=== PATIENT | female | born 1980 | race Caucasian/White ===

== ENCOUNTER 2016-06-16 10:24 | Emergency (ER) | payer OTHER ==
[2016-06-16] MEDS ORDERED: LIDOCAINE TOPICAL 4% 50 ML BOTTLE MM STA (12:18)
[2016-06-16] MEDS ORDERED: LIDOCAINE TOPICAL 4% 50 ML BOTTLE MM ONE (12:25)
== END 2016-06-16 12:51 | disposition home or self-care (01) ==
DX: H69.82 Other specified disorders of Eustachian tube, left ear (principal); E11.9 Type 2 diabetes mellitus without complications

== ENCOUNTER 2016-08-01 15:28 | Outpatient (CLI) | payer OTHER | END 2016-08-01 15:29 | disposition home or self-care (01) | DX: Z00.00 Encounter for general adult medical examination without abnormal findings (principal) ==

== ENCOUNTER 2016-08-06 09:12 | Emergency (ER) | payer OTHER ==
[2016-08-06] MEDS ORDERED: cefTRIAXone 1 GM VIAL IM STA (10:06)
[2016-08-06] MEDS ORDERED: KETOROLAC 60 MG/2 ML VIAL IM STA (10:06)
[2016-08-06] MEDS ORDERED: DEXAMETHASONE 10 MG/ML VIAL PO STA (10:06)
[2016-08-06] MEDS ORDERED: CHERRY SYRUP 10 ML UDC PO ONE (10:12)
[2016-08-06] MEDS ORDERED: cefTRIAXone 1 GM VIAL ONE (10:12)
[2016-08-06] MEDS ORDERED: DEXAMETHASONE 10 MG/ML VIAL ONE (10:12)
[2016-08-06] MEDS ORDERED: KETOROLAC 60 MG/2 ML VIAL ONE (10:12)
[2016-08-06] MEDS ORDERED: LIDOCAINE 1% 2 ML VIAL ONE (10:12)
== END 2016-08-06 12:17 | disposition home or self-care (01) ==
DX: K08.89 Other specified disorders of teeth and supporting structures (principal); H66.002 Acute suppurative otitis media without spontaneous rupture of ear drum, left ear; J34.89 Other specified disorders of nose and nasal sinuses; E11.9 Type 2 diabetes mellitus without complications
CPT/HCPCS: 70486; 96372; 99283; A9270

== ENCOUNTER 2016-08-09 11:16 | Outpatient (CLI) | payer OTHER | END 2016-08-09 11:17 | disposition home or self-care (01) | DX: R10.32 Left lower quadrant pain (principal); D72.829 Elevated white blood cell count, unspecified; K62.5 Hemorrhage of anus and rectum ==

== ENCOUNTER 2016-08-10 13:04 | Outpatient (CLI) | payer OTHER | END 2016-08-10 13:05 | disposition home or self-care (01) | DX: R10.2 Pelvic and perineal pain (principal) ==

== ENCOUNTER 2016-08-12 16:43 | Outpatient (CLI) | payer OTHER ==
[2016-08-12] MEDS ORDERED: IOPAMIDOL-300 100 ML VIAL IVP ONE (18:30)
[2016-08-12] MEDS ORDERED: IOPAMIDOL-300 50 ML VIAL PO ONE (18:30)
== END 2016-08-12 16:44 | disposition home or self-care (01) ==
DX: K76.0 Fatty (change of) liver, not elsewhere classified (principal); R91.8 Other nonspecific abnormal finding of lung field; N83.11 Corpus luteum cyst of right ovary
CPT/HCPCS: 74177; Q9967

== ENCOUNTER 2016-11-05 12:45 | Outpatient (CLI) | payer OTHER ==
[2016-11-05 19:23] LABS: BASOPHILS % (AUTO) 0.4 %; EOSINOPHILS # (AUTO) 0.1 10^3/uL (0.0-0.7); EOSINOPHILS % (AUTO) 0.5 %; HCT - HEMATOCRIT 41.5 % (37.0-47.0); HGB - HEMOGLOBIN 13.8 g/dL (12.0-16.0); LYMPHOCYTES # (AUTO) 3.5 10^3/uL (1.5-3.5); LYMPHOCYTES % (AUTO) 30.9 %; MEAN CORPUSCULAR HEMOGLOBIN 30.1 pg (27.0-31.0); MEAN CORPUSCULAR HGB CONC 33.3 g/dL (32.0-36.0); MEAN CORPUSCULAR VOLUME 90.3 fL (81.0-99.0); MEAN PLATELET VOLUME 7.7 fL (7.9-10.8); MONOCYTES # (AUTO) 0.4 10^3/uL (0.0-1.0); MONOCYTES % (AUTO) 3.8 %; NEUTROPHILS # (AUTO) 7.4 10^3/uL (1.5-6.6); NEUTROPHILS % (AUTO) 64.4 %; NUCLEATED RED BLOOD CELLS AUTO 0.1 /100WBC; RED BLOOD COUNT 4.59 10^6/uL (4.20-5.40); RED CELL DISTRIBUTION WIDTH 13.1 % (12.0-15.0); UNCORRECTED WHITE BLOOD COUNT 11.5 x10^3/uL; WHITE BLOOD COUNT 11.5 x10^3/uL (4.8-10.8)
[2016-11-05 19:28] LABS: ALBUMIN/GLOBULIN RATIO 1.3 (1.0-2.2); BILIRUBIN,TOTAL 0.9 mg/dL (0.2-1.0); BUN - BLOOD UREA NITROGEN 12 mg/dL (6-20); CALCIUM 9.6 mg/dL (8.5-10.3); CARBON DIOXIDE - CO2 25 mmol/L (21-32); CHLORIDE 101 mmol/L (101-111); CHOL/HDL RATIO 3.6 (<4.4); CHOLESTEROL 153 mg/dL; CREATININE 0.5 mg/dL (0.4-1.0); GFR - MDRD 140 (>89); GLUCOSE 159 mg/dL (70-100); HDL CHOLESTEROL 42 mg/dL; LDL/HDL RATIO 0.9 (<4.4); POTASSIUM 3.7 mmol/L (3.5-5.0); SODIUM 137 mmol/L (135-145); TOTAL PROTEIN 7.6 g/dL (6.7-8.2); TRIGLYCERIDES 367 mg/dL; VLDL CHOLESTEROL 73 mg/dL
[2016-11-05 20:13] LABS: HEMOGLOBIN A1C 1.07 g/dL
== END 2016-11-05 23:59 | disposition home or self-care (01) ==
LOC: LAB.WCP 12:45
PROVIDERS: ATTEND Physician Assistant Medical
DX: E78.5 Hyperlipidemia, unspecified (principal); N39.0 Urinary tract infection, site not specified; E11.9 Type 2 diabetes mellitus without complications; D72.829 Elevated white blood cell count, unspecified; Z79.899 Other long term (current) drug therapy
CPT/HCPCS: 36415; 80053; 80061; 82043; 83036; 85025; 87086

== ENCOUNTER 2016-12-28 16:59 | Emergency (ER) | payer OTHER ==
[2016-12-28 17:22] VITALS: BP 129/89
[2016-12-28] MEDS ORDERED: CLINDAMYCIN 150 MG CAPSULE PO STA (17:28)
[2016-12-28] MEDS ORDERED: HYDROcod/ACETAM 5/325 MG TABLET PO STA (17:28)
--- NOTE | 2016-12-28 17:31 | ED Physician Documentation ---
PD HPI HEENT - Stated complaint Stated Complaint: MOUTH PX - Chief complaint Chief Complaint: Heent - History obtained from History obtained from: Patient - History of Present Illness Timing - onset: How many days ago (2 day of increasing pain left upper mouth/ gum. Had crown placed 5 days ago and felt okay for the 2 days following.) Timing - duration: Days Timing - details: Gradual onset, Still present (worsening) Location: Tooth, Mouth Associated symptoms: No: Fever, Congestion, Swollen nodes, Cough Similar symptoms before: Has not had sx before Recently seen: Clinic (dental work 5 days ago with 2 crowns placed.) Review of Systems Constitutional: denies: Fever, Chills Nose: denies: Rhinorrhea / runny nose, Congestion Throat: reports: Dental pain / toothache. denies: Sore throat Skin: denies: Rash, Lesions PD PAST MEDICAL HISTORY - Past Medical History Neuro: Headache/migraine Endocrine/Autoimmune: Type 2 diabetes GI: GERD - Past Surgical History Past Surgical History: Yes Ortho: Knee replacement, Shoulder arthroplasty HEENT: Tonsil/Adenoidectomy - Present Medications Home Medications: Ambulatory Orders Medication Instructions Recorded Confirmed Fluticasone [Flonase] 1 sprays SOTO BID PRN #1 bottle 06/16/16 08/06/16 Azithromycin [Zithromax] 250 mg PO DAILY #6 tablet 08/06/16 HYDROcod/ACETAM 5/325 [Shubuta 5/325] 1 - 2 ea PO Q6H PRN #15 tablet 08/06/16 Atorvastatin [Lipitor] 10 mg PO DAILY 12/28/16 12/28/16 Clindamycin [Cleocin] 150 mg PO QID #20 capsule 12/28/16 Fluconazole [Diflucan] 150 mg PO ONCE #2 tablet 12/28/16 Naproxen 375 mg PO BID #20 tablet 12/28/16 Oxycodone HCl/Acetaminophen 1 each PO Q6H PRN #15 tablet 12/28/16 [Percocet 5-325 mg Tablet] metFORMIN [Glucophage] 500 mg PO DAILY 12/28/16 12/28/16 - Allergies Allergies/Adverse Reactions: Allergies Allergy/AdvReac Type Severity Reaction Status Date / Time doxycycline Allergy Unknown Verified 12/28/16 17:33 hydrocodone Allergy Headache Verified 12/28/16 17:32 - Social History Does the pt smoke?: No Smoking Status: Never smoker Does the pt drink ETOH?: No Does the pt have substance abuse?: No - Immunizations Immunizations are current?: Yes - POLST Patient has POLST: No PD ED PE NORMAL - Vitals Vital signs reviewed: Yes - General General: Alert and oriented X 3, No acute distress, Well developed/nourished - HEENT HEENT: Ears normal. No: Pharynx benign (tonsils okay. right upper teeth with crowns noted. No tenderness to percussion of them. The gum has some redness and tenderness. No fluctuance. ) - Neck Neck: Supple, no meningeal sign, Other (right anterior adenopathy) - Cardiac Cardiac: RRR, No murmur - Respiratory Respiratory: Clear bilaterally - Derm Derm: Normal color, Warm and dry, No rash Results - Vitals Vitals: Oxygen O2 Source Room air PD MEDICAL DECISION MAKING - ED course Complexity details: considered differential (the crowns appear okay and no percussion tenderness. The gums are red with some swelling. She also complains of some recent yeast itching and is concerned about yeast vaginitis with abx use. will treat for that with oral diflucan. ), d/w patient Departure - Departure Disposition: 01 Home, Self Care Clinical Impression: Yeast vaginitis, Gingivitis Record reviewed to determine appropriate education?: Yes Follow-Up: Radha Tariq PA-C [Primary Care Provider] - Prescriptions: Clindamycin [Cleocin] 150 mg PO QID #20 capsule Fluconazole [Diflucan] 150 mg PO ONCE #2 tablet Naproxen 375 mg PO BID #20 tablet Oxycodone HCl/Acetaminophen [Percocet 5-325 mg Tablet] 1 each PO Q6H PRN #15 tablet PRN Reason: Pain Comments: Antiseptic mouth rinse 2-3 times daily. Presume infection would be the most likely cause for the pain, with some swelling of the gum: take Clindamycin as directed antibiotic. Use some naproxen twice daily for inflammation. Add percocet as needed for pain. For the yeast vaginitis, take Diflucan once today and repeat in a week. Discharge Date/Time: 12/28/16 18:04
[2016-12-28] MEDS ORDERED: HYDROcod/ACETAM 5/325 MG TABLET ONE (17:34)
[2016-12-28] MEDS ORDERED: CLINDAMYCIN 150 MG CAPSULE PO ONE (17:34)
[2016-12-28] MEDS ORDERED: oxyCOD/ACETAMIN 5 MG/325 MG TABLET PO STA (17:40)
[2016-12-28] MEDS ORDERED: oxyCOD/ACETAMIN 5 MG/325 MG TABLET PO ONE (18:04)
== END 2016-12-28 18:04 | disposition home or self-care (01) ==
LOC: ED 16:59
DX: K05.10 Chronic gingivitis, plaque induced (principal); B37.3 Candidiasis of vulva and vagina
CPT/HCPCS: 99283; A9270

== ENCOUNTER 2017-01-14 21:38 | Inpatient (IN) | payer OTHER ==
--- NOTE | 2017-01-14 21:53 | ED Physician Documentation ---
PD HPI NVD - Stated complaint Stated Complaint: FEVER,VOMITING,BACK PX - Chief complaint Chief Complaint: Abd Pain - History obtained from History obtained from: Patient - History of Present Illness Timing - onset: Yesterday Timing - details: Gradual onset, Constant, Waxing and waning Pain level now: 8 Associated symptoms: Fever (Tmax 102.2), Abdominal pain Improved by: Other (no ameliorating factors) Worsened by: Other (no exacerbating factors) Similar symptoms before: Has not had sx before Recently seen: Emergency Dept (T+R from this ED earlier this month for dental infection) - Additonal information Additional information: c/o 1-2 days of nausea, vomiting, diarrhea, fever to Tmax 102.2, generalized myalgias and arthralgias Review of Systems Constitutional: reports: Fever, Chills, Myalgias, Sweats Eyes: reports: Reviewed and negative Ears: reports: Reviewed and negative Nose: reports: Reviewed and negative Throat: reports: Reviewed and negative Cardiac: reports: Reviewed and negative Respiratory: reports: Reviewed and negative GI: reports: Abdominal Pain, Nausea, Vomiting, Diarrhea : denies: Dysuria, Frequency Skin: reports: Reviewed and negative Musculoskeletal: reports: Back pain (left mid/low back pain), Joint pain ( generalized/diffuse) Neurologic: reports: Reviewed and negative PD PAST MEDICAL HISTORY - Past Medical History Past Medical History: Yes Neuro: Headache/migraine Endocrine/Autoimmune: Type 2 diabetes GI: GERD - Past Surgical History Past Surgical History: Yes Ortho: Knee replacement, Shoulder arthroplasty HEENT: Tonsil/Adenoidectomy - Present Medications Home Medications: Ambulatory Orders Medication Instructions Recorded Confirmed metFORMIN [Glucophage] 500 mg PO DAILY 12/28/16 01/14/17 Atorvastatin Calcium 20 mg PO DAILY 01/14/17 01/14/17 - Allergies Allergies/Adverse Reactions: Allergies Allergy/AdvReac Type Severity Reaction Status Date / Time doxycycline Allergy Unknown Verified 01/14/17 21:42 hydrocodone Allergy Headache Verified 01/14/17 21:42 - Social History Does the pt smoke?: No Smoking Status: Never smoker Does the pt drink ETOH?: No Does the pt have substance abuse?: No - Immunizations Immunizations are current?: Yes - POLST Patient has POLST: No PD ED PE NORMAL - Vitals Vital signs reviewed: Yes - General General: Alert and oriented X 3, Well developed/nourished, Other (appears to be uncomfortable, painful distress) - HEENT HEENT: Moist mucous membranes - Neck Neck: Supple, no meningeal sign - Cardiac Cardiac: No murmur - Respiratory Respiratory: No respiratory distress, Clear bilaterally - Abdomen Abdomen: Soft, Non distended - Derm Derm: Normal color, Warm and dry, No rash PD ED PE EXPANDED - Cardiac Cardiac: Tachy, Regular Rhythm - Abdomen Abdomen: Tender to palpation, LLQ. No: Rebound, Guarding - Back Back: CVA TTP left Results - Vitals Vitals: Vital Signs - 24 hr 01/14/17 01/14/17 01/14/17 21:44 22:58 23:16 Temperature 37.1 C 37.2 C Heart Rate 124 H 104 H 104 H Respiratory 18 18 18 Rate Blood Pressure 129/85 H 101/56 L 112/66 O2 Saturation 98 97 97 01/15/17 01/15/17 01/15/17 00:05 00:40 00:56 Temperature 37.1 C Heart Rate 101 H 94 96 Respiratory 19 18 16 Rate Blood Pressure 100/62 105/62 110/67 O2 Saturation 95 95 96 Oxygen O2 Source Room air - Labs Labs: Laboratory Tests 01/14/17 01/14/17 01/14/17 21:50 21:53 21:53 WBC 25.3 H RBC 4.76 Hgb 13.9 Hct 42.1 MCV 88.5 MCH 29.2 MCHC 33.0 RDW 13.8 Plt Count 343 MPV 7.5 L Neut # Not Reportable Lymph # Not Reportable Grand # Not Reportable Eos # Not Reportable Baso # Not Reportable Absolute Nucleated RBC Not Reportable Total Counted 100 Band Neuts % (Manual) 5 Neutrophils # (Manual) 21.0 H Lymphocytes # (Manual) 3.0 Monocytes # (Manual) 1.3 H Nucleated RBCs Not Reportable Differential Comment MANUAL DIFFERENTIAL Platelet Estimate NORMAL (130-450,000) Platelet Morphology NORMAL APPEARANCE RBC Morph Micro Appear NORMAL APPEARANCE Sodium 135 Potassium 3.8 Chloride 98 L Carbon Dioxide 24 Anion Gap 13.0 BUN 7 Creatinine 0.6 Estimated GFR (MDRD) 113 Glucose 367 H Calcium 9.4 Total Bilirubin 1.3 H AST 26 ALT 27 Alkaline Phosphatase 122 H Total Protein 7.7 Albumin 4.1 Globulin 3.6 Albumin/Globulin Ratio 1.1 Lipase 20 L Urine Color YELLOW Urine Clarity HAZY Urine pH 6.0 Ur Specific [place] 1.010 Urine Protein TRACE Urine Glucose (UA) 500 H Urine Ketones >=80 H Urine Occult Blood SMALL H Urine Nitrite NEGATIVE Urine Bilirubin NEGATIVE Urine Urobilinogen 0.2 (NORMAL) Ur Leukocyte Esterase NEGATIVE Urine RBC 6-10 H Urine WBC 4-5 Ur Squamous Epith Cells MANY Squamous H Urine Bacteria Few Ur Microscopic Review INDICATED Urine Culture Comments NOT INDICATED Urine HCG, Qual NEGATIVE Serum Ketones 01/14/17 01/15/17 21:53 00:30 WBC RBC Hgb Hct MCV MCH MCHC RDW Plt Count MPV Neut # Lymph # Grand # Eos # Baso # Absolute Nucleated RBC Total Counted Band Neuts % (Manual) Neutrophils # (Manual) Lymphocytes # (Manual) Monocytes # (Manual) Nucleated RBCs Differential Comment Platelet Estimate Platelet Morphology RBC Morph Micro Appear Sodium Potassium Chloride Carbon Dioxide Anion Gap BUN Creatinine Estimated GFR (MDRD) Glucose Calcium Total Bilirubin AST ALT Alkaline Phosphatase Total Protein Albumin Globulin Albumin/Globulin Ratio Lipase Urine Color YELLOW Urine Clarity CLEAR Urine pH 5.5 Ur Specific [place] <=1.005 Urine Protein NEGATIVE Urine Glucose (UA) NEGATIVE Urine Ketones >=80 H Urine Occult Blood SMALL H Urine Nitrite NEGATIVE Urine Bilirubin NEGATIVE Urine Urobilinogen 0.2 (NORMAL) Ur Leukocyte Esterase NEGATIVE Urine RBC 0-5 Urine WBC 0-3 Ur Squamous Epith Cells RARE Squamous Urine Bacteria None Seen Ur Microscopic Review INDICATED Urine Culture Comments NOT INDICATED Urine HCG, Qual Serum Ketones NEGATIVE - Rads (name of study) CT A/P Radiology: Prelim report reviewed, See rad report PD MEDICAL DECISION MAKING - ED course Complexity details: reviewed results, re-evaluated patient, considered differential, d/w patient Departure - Departure Disposition: 66 [facility] DC/Xfer Clinical Impression: Pyelonephritis Condition: Stable
[2017-01-14] MEDS ORDERED: ONDANSETRON 4 MG/2 ML VIAL ONE (22:15)
[2017-01-14] MEDS ORDERED: KETOROLAC 30 MG/ML VIAL ONE (22:15)
[2017-01-14 22:20] LABS: BASOPHILS % (AUTO) 0.3 %; HCT - HEMATOCRIT 42.1 % (37.0-47.0); HGB - HEMOGLOBIN 13.9 g/dL (12.0-16.0); LYMPHOCYTES % (AUTO) 5.2 %; MEAN CORPUSCULAR HEMOGLOBIN 29.2 pg (27.0-31.0); MEAN CORPUSCULAR VOLUME 88.5 fL (81.0-99.0); MEAN PLATELET VOLUME 7.5 fL (7.9-10.8); MONOCYTES % (AUTO) 5.6 %; NEUTROPHILS % (AUTO) 88.9 %; RED BLOOD COUNT 4.76 10^6/uL (4.20-5.40); RED CELL DISTRIBUTION WIDTH 13.8 % (12.0-15.0); UNCORRECTED WHITE BLOOD COUNT 25.3 x10^3/uL; WHITE BLOOD COUNT 25.3 x10^3/uL (4.8-10.8)
[2017-01-14] MEDS ORDERED: KETOROLAC 60 MG/2 ML VIAL IVP STA (22:21)
[2017-01-14] MEDS ORDERED: ONDANSETRON 4 MG/2 ML VIAL IVP STA (22:21)
[2017-01-14] MEDS ORDERED: SODIUM CHLORIDE 0.9% 1,000 ML IV ONE (22:23)
[2017-01-14 22:29] LABS: BILIRUBIN,URINE NEGATIVE (NEGATIVE)
[2017-01-14 22:31] LABS: HCG UR QUAL NEGATIVE; UA w/ MICROSCOPIC CHARGE YES
[2017-01-14 22:33] LABS: ALBUMIN/GLOBULIN RATIO 1.1 (1.0-2.2); BILIRUBIN,TOTAL 1.3 mg/dL (0.2-1.0); CALCIUM 9.4 mg/dL (8.5-10.3); CREATININE 0.6 mg/dL (0.4-1.0); POTASSIUM 3.8 mmol/L (3.5-5.0); TOTAL PROTEIN 7.7 g/dL (6.7-8.2)
[2017-01-14 22:40] LABS: UR CULTURE IF IND NOT INDICATED
[2017-01-14 22:49] LABS: BAND NEUTROPHILS % (MANUAL) 5 %; LYMPHOCYTES % (MANUAL) 12 %; NEUTROPHILS % (MANUAL) 78 %; TOTAL CELLS COUNTED 100
[2017-01-14 22:52] LABS: NP AUTO DIFFERENTIAL? YES; NP MAN DIFFERENTIAL? NO; PLATELET ESTIMATE, MANUAL NORMAL (130-450,000) (NORMAL); PLATELET MORPHOLOGY NORMAL APPEARANCE (NORMAL)
[2017-01-14] MEDS ORDERED: HYDROmorphone 1 MG/ML SYRINGE IVP STA (23:03)
[2017-01-14] MEDS ORDERED: HYDROmorphone 1 MG/ML SYRINGE ONE (23:07)
[2017-01-14] MEDS ORDERED: IOPAMIDOL-300 100 ML VIAL IVP ONE (23:33)
--- NOTE | 2017-01-14 23:52 | CT Preliminary Report ---
Exam: CT Abdomen/Pelvis W/ IMPRESSION: 1. Left mid kidney pyelonephritis. 2. There are areas of mild urothelial thickening about the renal pelves bilaterally, left greater lenka n right with associated mild abnormal enhancement. These are worrisome for concurrent urinary tract i nfection. Correlation with urinalysis needed. 3. At least one gallstone within a partially distended gallbladder. No evidence of cholecystitis. No biliary dilation. 4. No bowel obstruction. Appendix is normal. Ovaries are physiologic in appearance. [facility] SITE ID: [id number]
[2017-01-15] MEDS ORDERED: SODIUM CHLORIDE 0.9% 1,000 ML IV STA (00:03)
[2017-01-15] MEDS ORDERED: ONDANSETRON 4 MG/2 ML VIAL IVP STA (00:03)
--- NOTE | 2017-01-15 00:07 | CT Report ---
EXAM: CT ABDOMEN AND PELVIS EXAM DATE: 01/14/2017 11:36 PM. CLINICAL HISTORY: Left lower quadrant pain and fever. COMPARISONS: 08/12/2016. TECHNIQUE: Routine helical CT imaging was performed through the abdomen and pelvis. IV contrast: 100 mL Isovue-300. Enteric contrast: No. Reconstructions: Coronal and sagittal. In accordance with CT protocol optimization, one or more of the following dose reduction techniques w ere utilized for this exam: automated exposure control, adjustment of mA and/or KV based on patient s ize, or use of iterative reconstructive technique. FINDINGS: ABDOMEN: Liver: Moderate hepatic steatosis and hepatomegaly. Stomach/Distal Esophagus: No significant abnormality. Gallbladder: Suspect at least one gallstone. Bile Ducts: No significant abnormality. Pancreas: No significant abnormality. Spleen: No significant abnormality. Kidneys: There is a segmental area of diminished enhancement within the left kidney, with slight appa rent enlargement in the affected area. There is an incipient left upper kidney stone suspected. There is no hydronephrosis. Mild left-sided urothelial thickening about the left renal pelvis with mild ab normal enhancement. Equivocal right-sided urothelial thickening. No right-sided hydronephrosis. Adrenals: No significant abnormality. Bowel: No obstruction. Average fecal residual. Appendix: Normal. Lymph Nodes: No pathologically enlarged nodes. Vasculature: Normal caliber aorta. Fluid: No significant free fluid. Abdominal Wall: No significant abnormality. Other: No significant abnormality. PELVIS: Uterus and Ovaries: No significant abnormality. Bladder: No significant abnormality. Lymph Nodes: No pathologically enlarged nodes. Fluid: No significant free fluid. Other: None. BONES: No suspicious bony lesions. LOWER CHEST: No significant consolidation or effusion. IMPRESSION: 1. Left mid kidney pyelonephritis. 2. There are areas of mild urothelial thickening about the renal pelves bilaterally, left greater lenka n right with associated mild abnormal enhancement. These are worrisome for concurrent urinary tract i nfection. Correlation with urinalysis needed. 3. At least one gallstone within a partially distended gallbladder. No evidence of cholecystitis. No biliary dilation. 4. No bowel obstruction. Appendix is normal. Ovaries are physiologic in appearance. [facility] Referring Provider Line: [phone] SITE ID: [id number]
[2017-01-15] MEDS ORDERED: ONDANSETRON 4 MG/2 ML VIAL ONE (00:08)
[2017-01-15] MEDS ORDERED: HYDROmorphone 1 MG/ML SYRINGE IVP STA (00:39)
[2017-01-15] MEDS ORDERED: PIPERACILLIN/TAZOBACTAM 3.375 GM in SODIUM CHLORIDE 0.9% MINIBAG 100 ML IV STA (00:41)
[2017-01-15] MEDS ORDERED: HYDROmorphone 1 MG/ML SYRINGE ONE ×2 (00:44→03:51)
[2017-01-15 00:45] LABS: BILIRUBIN,URINE NEGATIVE (NEGATIVE); PH,URINE 5.5 PH (5.0-7.5)
[2017-01-15 01:11] LABS: UA w/ MICROSCOPIC CHARGE YES; UR CULTURE IF IND NOT INDICATED; WBC,URINE 0-3 /HPF (0-5)
[2017-01-15] MEDS ORDERED: ZOLPIDEM 5 MG TABLET PO PRN (01:50)
[2017-01-15] MEDS ORDERED: PROCHLORPERAZINE 10 MG/2 ML VIAL IVP PRN (01:50)
[2017-01-15 02:24] LABS: CALCIUM 8.4 mg/dL (8.5-10.3); CREATININE 0.6 mg/dL (0.4-1.0); POTASSIUM 3.8 mmol/L (3.5-5.0)
[2017-01-15 02:32] LABS: HEMOGLOBIN A1C 1.19 g/dL
[2017-01-15] MEDS ORDERED: PROCHLORPERAZINE 10 MG/2 ML VIAL ONE (02:44)
[2017-01-15] MEDS: SODIUM CHLORIDE 0.9% 1,000 ML IV SCH ×3 (04:58→20:56)
[2017-01-15] MEDS: PIPERACILLIN/TAZOBACTAM 3.375 GM in SODIUM CHLORIDE 0.9% MINIBAG 100 ML IV SCH ×3 (05:56→20:42)
[2017-01-15] MEDS ORDERED: INSULIN REGULAR HUMAN 100 UNIT/1 ML 10 ML MDV SUBQ SCH (06:00)
[2017-01-15 06:37] LABS: BASOPHILS # (AUTO) 0.1 10^3/uL (0.0-0.1); BASOPHILS % (AUTO) 0.4 %; HCT - HEMATOCRIT 37.8 % (37.0-47.0); HGB - HEMOGLOBIN 12.5 g/dL (12.0-16.0); LYMPHOCYTES # (AUTO) 1.7 10^3/uL (1.5-3.5); LYMPHOCYTES % (AUTO) 8.6 %; MEAN CORPUSCULAR HEMOGLOBIN 29.4 pg (27.0-31.0); MEAN CORPUSCULAR HGB CONC 33.1 g/dL (32.0-36.0); MEAN CORPUSCULAR VOLUME 88.8 fL (81.0-99.0); MEAN PLATELET VOLUME 7.4 fL (7.9-10.8); MONOCYTES # (AUTO) 0.9 10^3/uL (0.0-1.0); MONOCYTES % (AUTO) 4.6 %; NEUTROPHILS # (AUTO) 17.6 10^3/uL (1.5-6.6); NEUTROPHILS % (AUTO) 86.4 %; RED BLOOD COUNT 4.26 10^6/uL (4.20-5.40); UNCORRECTED WHITE BLOOD COUNT 20.3 x10^3/uL; WHITE BLOOD COUNT 20.3 x10^3/uL (4.8-10.8)
[2017-01-15 06:43] LABS: CALCIUM 8.2 mg/dL (8.5-10.3); CREATININE 0.6 mg/dL (0.4-1.0)
[2017-01-15] MEDS: SODIUM CHLORIDE FLUSH 0.9% 10 ML SYRINGE IVP SCH ×3 (06:53→20:50)
[2017-01-15 06:57] LABS: PLATELET ESTIMATE, MANUAL NORMAL (130-450,000) (NORMAL); PLATELET MORPHOLOGY NORMAL APPEARANCE (NORMAL)
--- NOTE | 2017-01-15 07:23 | HISTORY & PHYSICAL EXAMINATION ---
DATE OF ADMISSION: 01/15/2017 HISTORY OF PRESENT ILLNESS: This is a 36-year-old white female with a history of migraines and type 2 diabetes. The patient presents with a 2-3 day history of malaise, fever to 102, nausea, vomiting, di arrhea, and overall arthralgias. The patient had a fever documented in the emergency room to 38 and w as also complaining of abdominal pain and posterior abdominal pain, located in the flank. The patient required escalating doses of pain medications in the emergency room and had worsening of her nausea and vomiting subsequently. The patient underwent imaging studies in the emergency room, revealing alpesh dence of pyelonephritis for which she is admitted. REVIEW OF SYSTEMS: As above. Also, she denies dysuria, urgency or frequency. PAST MEDICAL HISTORY: Includes diabetes, for which she is on an oral agent and cholesterol management . PAST SURGICAL HISTORY: Knee replacement, shoulder arthroplasty, and tonsils and adenoids. FAMILY HISTORY: Negative for heart disease, positive for diabetes. SOCIAL HISTORY: She is a nonsmoker who never smoked and uses no alcohol and no illicit drug use. PHYSICAL EXAMINATION GENERAL: Reveals an obese white female. She is mildly in distress from nausea and vomiting. VITAL SIGNS: Blood pressure 112/66, pulse is 104 in sinus rhythm, and she has a low grade temperature now of 37.7. HEENT: Unremarkable. She has moist mucosa. NECK: Shows no JVD in a vertical position. No carotid bruits. No thyromegaly. CHEST: She has diminished breath sounds diffusely, but there are no rales, rhonchi, or wheezes. ABDOMEN: Obese with decreased bowel sounds, soft, nontender. No guarding or rebound. There is positiv e right flank tenderness. EXTREMITIES: Show no clubbing, cyanosis or edema. Calves have no tenderness. Dorsalis pedis pulses ar e normal. NEUROLOGIC: Intact. LABORATORY: Sodium 135, potassium 3.8, BUN 7, creatinine 0.6, bilirubin 1.3, AST 26, ALT 27, glucose 367. Lipase normal at 20. Urinalysis showed many squamous cells and another urinalysis has been sent off. White blood count 25.3 and the differential is pending, hemoglobin 13.9, platelet count normal. There is no INR. Toxicology screen was negative for serum ketones. IMAGING: CT of the abdomen and pelvis was done, which showed left mid kidney pyelonephritis, areas of mild urothelial thickening about the renal pelvis bilaterally, left greater than right, with abnorma l enhancement. She has 1 gallstone and a partially distended gallbladder. There is no bowel obstructi on. IMPRESSION 1. Pyelonephritis. 2. Abdominal pain with nausea and possible cholelithiasis. 3. Diabetes with elevated glucose. 4. Obesity. PLAN: Admit the patient and start IV hydration, IV antibiotics. Blood culture, urine culture. Treat t he patient for her nausea. Continue with her p.o. antihyperglycemic agent and also add a sliding scal e insulin to cover high glucoses and institute routine glucose checks. JOB #: [id number] EXT JOB #:[id number]
[2017-01-15] MEDS: HYDROcod/ACETAM 10 MG/325 MG TABLET PO PRN ×3 (08:42→20:41)
[2017-01-15] MEDS: FAMOTIDINE 20 MG TABLET PO SCH (08:50)
[2017-01-15] MEDS: ATORVASTATIN 10 MG TABLET PO SCH (08:50)
[2017-01-15] MEDS: ENOXAPARIN 40 MG/0.4 ML SYRINGE SUBQ SCH (08:50)
[2017-01-15] MEDS: POLYETHYLENE GLYCOL 3350 17 GM PACKET PO SCH (08:51)
[2017-01-15] MEDS ORDERED: PIPERACILLIN/TAZOBACTAM 3.375 GM in SODIUM CHLORIDE 0.9% MINIBAG 100 ML IV SCH (09:00)
[2017-01-15] MEDS ORDERED: metFORMIN 500 MG TABLET PO SCH (09:00)
[2017-01-15] MEDS ORDERED: MONTELUKAST 10 MG TABLET PO PRN (11:00)
[2017-01-15 11:42] LABS: HEMOGLOBIN A1C 1.19 g/dL
[2017-01-15] MEDS: oxyCODONE 5 MG TABLET PO PRN ×3 (12:25→20:42)
[2017-01-15] MEDS: INSULIN ASPART 300 UNIT/3 ML PEN SUBQ SCH ×3 (12:30→20:49)
[2017-01-15] MEDS ORDERED: PROCHLORPERAZINE 10 MG/2 ML VIAL IV ONE ×2 (14:10→16:00)
[2017-01-15] MEDS ORDERED: LORazepam 2 MG/ML VIAL IVP PRN (14:12)
[2017-01-15] MEDS ORDERED: LORazepam 2 MG/ML SYRINGE IVP PRN (15:17)
[2017-01-15] MEDS ORDERED: SODIUM CHLORIDE 0.9% IV ONE (16:00)
[2017-01-15] MEDS ORDERED: PROCHLORPERAZINE IV ONE (16:00)
[2017-01-15] MEDS: ACETAMINOPHEN 325 MG TABLET PO PRN (16:26)
--- NOTE | 2017-01-15 18:07 | PROVIDER PROGRESS NOTE ---
Assessment/Plan - Problem List (1) Pyelonephritis Assessment/Plan: She has had fever this afternoon, She is on antibiotics. Her pain is improved. (2) Migraine Assessment/Plan: She had UMANZOR then better after a nap then worse again. She has recurrent, chronic migraines. She got Compazine this afternoon. Effect undetermined at this point. - Current Meds Current Meds: Current Medications Generic Name Dose Route Start Last Admin Trade Name Freq PRN Reason Stop Dose Admin Acetaminophen 650 mg 01/15/17 01:50 01/15/17 16:26 Tylenol PO 650 mg Q4HR PRN Administration Pain 1 to 4 Acetaminophen/Hydrocodone Bitart 1 tab 01/15/17 01:50 01/15/17 16:25 Sprakers 10 Mg/325 Mg PO 1 tab Q4HR PRN Administration Pain 8 to 10 Atorvastatin Calcium 20 mg 01/15/17 09:00 01/15/17 08:50 Lipitor PO 20 mg DAILY LENO Administration Enoxaparin Sodium 40 mg 01/15/17 09:00 01/15/17 08:50 Lovenox SUBQ 40 mg DAILY LENO Administration Famotidine 20 mg 01/15/17 09:00 01/15/17 08:50 Pepcid PO 20 mg DAILY LENO Administration Sodium Chloride 1,000 mls @ 125 mls/hr 01/15/17 02:00 01/15/17 08:51 Normal Saline 0.9% IV 125 mls/hr .Q8H LENO Administration Piperacillin Sod/Tazobactam 100 mls @ 200 mls/hr 01/15/17 05:00 01/15/17 12:27 Sod 3.375 gm/ Sodium Chloride IV 200 mls/hr Q8H LENO Administration Insulin Aspart 3 - 11 unit 01/15/17 12:00 01/15/17 17:16 Novolog SUBQ 7 unit 0800,1200,1700,2100 LENO Administration Protocol Oxycodone HCl 5 mg 01/15/17 01:50 01/15/17 16:21 Roxicodone PO 5 mg Q4HR PRN Administration Pain 5 to 7 Polyethylene Glycol 17 gm 01/15/17 09:00 01/15/17 08:51 Miralax PO Not Given DAILY LENO Sodium Chloride 10 ml 01/15/17 06:00 01/15/17 14:05 Normal Saline Flush 0.9% IVP Not Given Q8HR LENO - Lab Result Fish Bone Diagrams: 01/15/17 06:29 01/15/17 06:29 - Additional Planning My Orders: My Active Orders 01/15/17 10:59 Blood Glucose Checks - Eating [RC] 0800,1200,1700,2100 Initiate Hypoglycemia Protocol [RC] .protocol 01/15/17 11:00 Montelukast [Singulair] 10 mg PO QPM PRN 01/15/17 12:00 Insulin Aspart [NovoLOG] 3 - 11 unit SUBQ 0800,1200,1700,2100 01/16/17 05:00 CBC - COMP BLD CT W/AUTO DIFF [HEME] DAILYLAB COMPREHENSIVE METABOLIC PANEL [CHEM] DAILYLAB 01/17/17 05:00 CBC - COMP BLD CT W/AUTO DIFF [HEME] DAILYLAB COMPREHENSIVE METABOLIC PANEL [CHEM] DAILYLAB 01/18/17 05:00 CBC - COMP BLD CT W/AUTO DIFF [HEME] DAILYLAB COMPREHENSIVE METABOLIC PANEL [CHEM] DAILYLAB Subjective - Subjective Patient Reports: Back Pain, Nausea Nursing Reports: Headache, Nausea, Pain Objective Vital Signs: Vital Signs - 24 hr 01/15/17 01/15/17 01/15/17 02:10 08:47 14:20 Temperature 37.1 C 38.5 C H 37.9 C H Heart Rate 90 Heart Rate [ 100 99 Brachial] Heart Rate [ Radial] Respiratory 16 18 18 Rate Blood Pressure 116/59 L Blood Pressure 114/64 135/80 H [Left Brachial artery] Blood Pressure [Left Radial artery] O2 Saturation 96 97 95 01/15/17 01/15/17 15:55 17:43 Temperature 38.5 C H 38.3 C H Heart Rate Heart Rate [ Brachial] Heart Rate [ 97 Radial] Respiratory 20 Rate Blood Pressure Blood Pressure [Left Brachial artery] Blood Pressure 144/86 H [Left Radial artery] O2 Saturation 97 Oxygen O2 Source Room air I&O (Last 24 Hrs): Intake and Output Totals x24h 01/13/17 01/14/17 01/15/17 23:59 23:59 23:59 Intake Total 2095 Output Total 700 Balance 1395 General: Alert, Oriented x3, Cooperative HEENT: PERRLA, EOMI Neck: No JVD, No thyromegaly Neuro: Alert, Oriented Times 3 Cardiovascular: Regular rate, No murmurs Respiratory: Chest non-tender, No respiratory distress, Breath sounds nml Abdomen: Normal bowel sounds - Results Results: Laboratory Results WBC 20.3 x10^3/uL (4.8-10.8) H 01/15/17 06:29 RBC 4.26 10^6/uL (4.20-5.40) 01/15/17 06:29 Hgb 12.5 g/dL (12.0-16.0) 01/15/17 06:29 Hct 37.8 % (37.0-47.0) 01/15/17 06:29 MCV 88.8 fL (81.0-99.0) 01/15/17 06:29 MCH 29.4 pg (27.0-31.0) 01/15/17 06: MCHC 33.1 g/dL (32.0-36.0) 01/15/17 06:29 RDW 14.0 % (12.0-15.0) 01/15/17 06:29 Plt Count 292 10^3/uL (130-450) 01/15/17 06:29 MPV 7.4 fL (7.9-10.8) L 01/15/17 06:29 Neut # 17.6 10^3/uL (1.5-6.6) H 01/15/17 06:29 Lymph # 1.7 10^3/uL (1.5-3.5) 01/15/17 06:29 [place] # 0.9 10^3/uL (0.0-1.0) 01/15/17 06:29 Eos # 0.0 10^3/uL (0.0-0.7) 01/15/17 06:29 Baso # 0.1 10^3/uL (0.0-0.1) 01/15/17 06:29 Absolute Nucleated RBC 0.00 x10^3/uL 01/15/17 06:29 Total Counted 100 01/14/17 21:53 Band Neuts % (Manual) 5 % (0-10) 01/14/17 21:53 Neutrophils # (Manual) 21.0 10^3/uL (1.5-6.6) H 01/14/17 21:53 Lymphocytes # (Manual) 3.0 10^3/uL (1.5-3.5) 01/14/17 21:53 Monocytes # (Manual) 1.3 10^3/uL (0.0-1.0) H 01/14/17 21:53 Nucleated RBCs 0.0 /100WBC 01/15/17 06:29 Differential Comment MANUAL DIFFERENTIAL 01/14/17 21:53 Manual Slide Review Indicated 01/15/17 06:29 Platelet Estimate NORMAL (130-450,000) (NORMAL) 01/15/17 06:29 Platelet Morphology NORMAL APPEARANCE (NORMAL) 01/15/17 06:29 RBC Morph Micro Appear NORMAL APPEARANCE (NORMAL) 01/15/17 06:29 Sodium 135 mmol/L (135-145) 01/15/17 06:29 Potassium 4.0 mmol/L (3.5-5.0) 01/15/17 06:29 Chloride 103 mmol/L (101-111) 01/15/17 06:29 Carbon Dioxide 24 mmol/L (21-32) 01/15/17 06:29 Anion Gap 8.0 (6-13) 01/15/17 06:29 BUN 8 mg/dL (6-20) 01/15/17 06:29 Creatinine 0.6 mg/dL (0.4-1.0) 01/15/17 06:29 Estimated GFR (MDRD) 113 (>89) 01/15/17 06:29 Glucose 298 mg/dL (70-100) H 01/15/17 06:29 POC Whole Bld Glucose 250 mg/dL (70 - 100) H 01/15/17 11:31 Fasting Glucose 347 mg/dL (70-100) H 01/15/17 02:11 Glycated Hemoglobin 10.3 % (4.6-6.2) H 01/15/17 06:29 Estim Average Glucose 249 (70-100) H 01/15/17 06:29 Calcium 8.2 mg/dL (8.5-10.3) L 01/15/17 06:29 Total Bilirubin 1.3 mg/dL (0.2-1.0) H 01/14/17 21:53 AST 26 IU/L (10-42) 01/14/17 21:53 ALT 27 IU/L (10-60) 01/14/17 21:53 Alkaline Phosphatase 122 IU/L (42-121) H 01/14/17 21:53 Total Protein 7.7 g/dL (6.7-8.2) 01/14/17 21:53 Albumin 4.1 g/dL (3.2-5.5) 01/14/17 21:53 Globulin 3.6 g/dL (2.1-4.2) 01/14/17 21:53 Albumin/Globulin Ratio 1.1 (1.0-2.2) 01/14/17 21:53 Lipase 20 U/L (22-51) L 01/14/17 21:53 Urine Color YELLOW 01/15/17 00:30 Urine Clarity CLEAR (CLEAR) 01/15/17 00:30 Urine pH 5.5 PH (5.0-7.5) 01/15/17 00:30 Ur Specific [place] <=1.005 (1.002-1.030) 01/15/17 00:30 Urine Protein NEGATIVE mg/dL (NEGATIVE) 01/15/17 00:30 Urine Glucose (UA) NEGATIVE mg/dL (NEGATIVE) 01/15/17 00:30 Urine Ketones >=80 mg/dL (NEGATIVE) H 01/15/17 00:30 Urine Occult Blood SMALL (NEGATIVE) H 01/15/17 00:30 Urine Nitrite NEGATIVE (NEGATIVE) 01/15/17 00:30 Urine Bilirubin NEGATIVE (NEGATIVE) 01/15/17 00:30 Urine Urobilinogen 0.2 (NORMAL) E.U./dL (NORMAL) 01/15/17 00:30 Ur Leukocyte Esterase NEGATIVE (NEGATIVE) 01/15/17 00:30 Urine RBC 0-5 /HPF (0-5) 01/15/17 00:30 Urine WBC 0-3 /HPF (0-5) 01/15/17 00:30 Ur Squamous Epith Cells RARE Squamous (<= Few) 01/15/17 00:30 Urine Bacteria None Seen /HPF (None Seen) 01/15/17 00:30 Ur Microscopic Review INDICATED 01/15/17 00:30 Urine Culture Comments NOT INDICATED 01/15/17 00:30 Urine HCG, Qual NEGATIVE 01/14/17 21:50 Serum Ketones NEGATIVE (NEGATIVE) 01/14/17 21:53
[2017-01-16] MEDS: oxyCODONE 5 MG TABLET PO PRN ×4 (00:20→20:52)
[2017-01-16] MEDS: ACETAMINOPHEN 325 MG TABLET PO PRN ×2 (00:26→20:52)
[2017-01-16] MEDS: IBUPROFEN 600 MG TABLET PO PRN ×3 (02:38→21:44)
[2017-01-16] MEDS: PIPERACILLIN/TAZOBACTAM 3.375 GM in SODIUM CHLORIDE 0.9% MINIBAG 100 ML IV SCH ×2 (04:30→15:01)
[2017-01-16] MEDS: SODIUM CHLORIDE FLUSH 0.9% 10 ML SYRINGE IVP SCH ×3 (04:32→23:15)
[2017-01-16] MEDS: SODIUM CHLORIDE 0.9% 1,000 ML IV SCH ×3 (04:39→18:05)
[2017-01-16] MEDS: ONDANSETRON ODT 4 MG TABLET TL PRN ×2 (05:09→20:52)
[2017-01-16 06:22] LABS: BASOPHILS % (AUTO) 0.1 %; HCT - HEMATOCRIT 32.7 % (37.0-47.0); HGB - HEMOGLOBIN 11.1 g/dL (12.0-16.0); LYMPHOCYTES # (AUTO) 1.1 10^3/uL (1.5-3.5); LYMPHOCYTES % (AUTO) 7.6 %; MEAN CORPUSCULAR HEMOGLOBIN 29.9 pg (27.0-31.0); MEAN CORPUSCULAR HGB CONC 33.9 g/dL (32.0-36.0); MEAN CORPUSCULAR VOLUME 88.1 fL (81.0-99.0); MEAN PLATELET VOLUME 7.3 fL (7.9-10.8); MONOCYTES # (AUTO) 0.7 10^3/uL (0.0-1.0); MONOCYTES % (AUTO) 5.2 %; NEUTROPHILS # (AUTO) 12.4 10^3/uL (1.5-6.6); NEUTROPHILS % (AUTO) 87.1 %; NUCLEATED RED BLOOD CELLS AUTO 0.1 /100WBC; RED BLOOD COUNT 3.71 10^6/uL (4.20-5.40); RED CELL DISTRIBUTION WIDTH 14.2 % (12.0-15.0); UNCORRECTED WHITE BLOOD COUNT 14.2 x10^3/uL; WHITE BLOOD COUNT 14.2 x10^3/uL (4.8-10.8)
[2017-01-16 06:34] LABS: ALBUMIN/GLOBULIN RATIO 0.9 (1.0-2.2); BILIRUBIN,TOTAL 1.1 mg/dL (0.2-1.0); CALCIUM 8.2 mg/dL (8.5-10.3); CREATININE 0.5 mg/dL (0.4-1.0); POTASSIUM 3.3 mmol/L (3.5-5.0); TOTAL PROTEIN 5.9 g/dL (6.7-8.2)
--- NOTE | 2017-01-16 08:14 | PROVIDER PROGRESS NOTE ---
Assessment/Plan - Problem List (1) Pyelonephritis Assessment/Plan: Nguyen had fever until 0300 today. She had a vey uncomfortable night. He back p[ain and HAs have resolved. No prelim Culture results. (2) Migraine Assessment/Plan: Migraine gone. She cannot tolerate Hydrocodone . Once stopped UMANZOR gone. - Current Meds Current Meds: Current Medications Generic Name Dose Route Start Last Admin Trade Name Freq PRN Reason Stop Dose Admin Acetaminophen 650 mg 01/15/17 01:50 01/16/17 00:26 Tylenol PO 650 mg Q4HR PRN Administration Pain 1 to 4 Acetaminophen/Hydrocodone Bitart 1 tab 01/15/17 01:50 01/15/17 20:41 [place] 10 Mg/325 Mg PO 1 tab Q4HR PRN Administration Pain 8 to 10 Atorvastatin Calcium 20 mg 01/15/17 09:00 01/15/17 08:50 Lipitor PO 20 mg DAILY LENO Administration Enoxaparin Sodium 40 mg 01/15/17 09:00 01/15/17 08:50 Lovenox SUBQ 40 mg DAILY LENO Administration Famotidine 20 mg 01/15/17 09:00 01/15/17 08:50 Pepcid PO 20 mg DAILY LENO Administration Sodium Chloride 1,000 mls @ 125 mls/hr 01/15/17 02:00 01/16/17 04:39 Normal Saline 0.9% IV 125 mls/hr .Q8H LENO Administration Piperacillin Sod/Tazobactam 100 mls @ 200 mls/hr 01/15/17 05:00 01/16/17 04:30 Sod 3.375 gm/ Sodium Chloride IV 200 mls/hr Q8H LENO Administration Ibuprofen 600 mg 01/15/17 01:50 01/16/17 02:38 Motrin PO 600 mg Q6HR PRN Administration Pain 1 to 4 Insulin Aspart 3 - 11 unit 01/15/17 12:00 01/15/17 20:49 Novolog SUBQ 5 unit 0800,1200,1700,2100 LENO Administration Protocol Ondansetron HCl 4 mg 01/15/17 01:50 01/16/17 05:09 Zofran Odt TL 4 mg Q6HR PRN Administration Nausea / Vomiting Oxycodone HCl 5 mg 01/15/17 01:50 01/16/17 04:28 Roxicodone PO 5 mg Q4HR PRN Administration Pain 5 to 7 Polyethylene Glycol 17 gm 01/15/17 09:00 01/15/17 08:51 Miralax PO Not Given DAILY LENO Sodium Chloride 10 ml 01/15/17 06:00 01/16/17 04:32 Normal Saline Flush 0.9% IVP 10 ml Q8HR LENO Administration - Lab Result Fish Bone Diagrams: 01/16/17 06:05 01/16/17 06:05 - Additional Planning My Orders: My Active Orders 01/15/17 10:59 Blood Glucose Checks - Eating [RC] 0800,1200,1700,2100 Initiate Hypoglycemia Protocol [RC] .protocol 01/15/17 11:00 Montelukast [Singulair] 10 mg PO QPM PRN 01/15/17 12:00 Insulin Aspart [NovoLOG] 3 - 11 unit SUBQ 0800,1200,1700,2100 01/17/17 05:00 CBC - COMP BLD CT W/AUTO DIFF [HEME] DAILYLAB COMPREHENSIVE METABOLIC PANEL [CHEM] DAILYLAB 01/18/17 05:00 CBC - COMP BLD CT W/AUTO DIFF [HEME] DAILYLAB COMPREHENSIVE METABOLIC PANEL [CHEM] DAILYLAB Subjective - Subjective Patient Reports: Resting Comfortably, Fever Nursing Reports: Nausea Objective Vital Signs: Vital Signs - 24 hr 01/15/17 01/15/17 01/15/17 08:47 14:20 15:55 Temperature 38.5 C H 37.9 C H 38.5 C H Heart Rate [ 100 99 Brachial] Heart Rate [ 97 Radial] Respiratory 18 18 20 Rate Blood Pressure 114/64 135/80 H [Left Brachial artery] Blood Pressure 144/86 H [Left Radial artery] O2 Saturation 97 95 97 01/15/17 01/16/17 01/16/17 17:43 00:24 02:41 Temperature 38.3 C H 38.4 C H 38.9 C H Heart Rate [ 92 Brachial] Heart Rate [ Radial] Respiratory 16 Rate Blood Pressure [Left Brachial artery] Blood Pressure 130/76 [Left Radial artery] O2 Saturation 96 01/16/17 01/16/17 04:47 07:51 Temperature 36.7 C 36.7 C Heart Rate [ 85 Brachial] Heart Rate [ Radial] Respiratory 19 Rate Blood Pressure [Left Brachial artery] Blood Pressure 104/76 [Left Radial artery] O2 Saturation 95 Oxygen O2 Source Room air I&O (Last 24 Hrs): Intake and Output Totals x24h 01/14/17 01/15/17 01/16/17 23:59 23:59 23:59 Intake Total 2990 961 Output Total 1000 Balance 1989 961 General: Alert, Oriented x3, Cooperative Neck: No JVD, No thyromegaly Neuro: Alert, Non Focal, Oriented Times 3 Cardiovascular: Regular rate, Normal S1 Respiratory: Chest non-tender, No respiratory distress, Breath sounds nml Abdomen: Normal bowel sounds, Soft Extremities: No edema, Normal pulses - Results Results: Laboratory Results WBC 14.2 x10^3/uL (4.8-10.8) H 01/16/17 06:05 RBC 3.71 10^6/uL (4.20-5.40) L 01/16/17 06:05 Hgb 11.1 g/dL (12.0-16.0) L 01/16/17 06:05 Hct 32.7 % (37.0-47.0) L 01/16/17 06:05 MCV 88.1 fL (81.0-99.0) 01/16/17 06:05 MCH 29.9 pg (27.0-31.0) 01/16/17 06:05 MCHC 33.9 g/dL (32.0-36.0) 01/16/17 06:05 RDW 14.2 % (12.0-15.0) 01/16/17 06:05 Plt Count 212 10^3/uL (130-450) 01/16/17 06:05 MPV 7.3 fL (7.9-10.8) L 01/16/17 06:05 Neut # 12.4 10^3/uL (1.5-6.6) H 01/16/17 06:05 Lymph # 1.1 10^3/uL (1.5-3.5) L 01/16/17 06:05 [place] # 0.7 10^3/uL (0.0-1.0) 01/16/17 06:05 Eos # 0.0 10^3/uL (0.0-0.7) 01/16/17 06:05 Baso # 0.0 10^3/uL (0.0-0.1) 01/16/17 06:05 Absolute Nucleated RBC 0.01 x10^3/uL 01/16/17 06:05 Total Counted 100 01/14/17 21:53 Band Neuts % (Manual) 5 % (0-10) 01/14/17 21:53 Neutrophils # (Manual) 21.0 10^3/uL (1.5-6.6) H 01/14/17 21:53 Lymphocytes # (Manual) 3.0 10^3/uL (1.5-3.5) 01/14/17 21:53 Monocytes # (Manual) 1.3 10^3/uL (0.0-1.0) H 01/14/17 21:53 Nucleated RBCs 0.1 /100WBC 01/16/17 06:05 Differential Comment MANUAL DIFFERENTIAL 01/14/17 21:53 Manual Slide Review Indicated 01/15/17 06:29 Platelet Estimate NORMAL (130-450,000) (NORMAL) 01/15/17 06:29 Platelet Morphology NORMAL APPEARANCE (NORMAL) 01/15/17 06:29 RBC Morph Micro Appear NORMAL APPEARANCE (NORMAL) 01/15/17 06:29 Sodium 134 mmol/L (135-145) L 01/16/17 06:05 Potassium 3.3 mmol/L (3.5-5.0) L 01/16/17 06:05 Chloride 103 mmol/L (101-111) 01/16/17 06:05 Carbon Dioxide 21 mmol/L (21-32) 01/16/17 06:05 Anion Gap 10.0 (6-13) 01/16/17 06:05 BUN 6 mg/dL (6-20) 01/16/17 06:05 Creatinine 0.5 mg/dL (0.4-1.0) 01/16/17 06:05 Estimated GFR (MDRD) 140 (>89) 01/16/17 06:05 Glucose 259 mg/dL (70-100) H 01/16/17 06:05 POC Whole Bld Glucose 250 mg/dL (70 - 100) H 01/15/17 11:31 Fasting Glucose 347 mg/dL (70-100) H 01/15/17 02:11 Glycated Hemoglobin 10.3 % (4.6-6.2) H 01/15/17 06:29 Estim Average Glucose 249 (70-100) H 01/15/17 06:29 Calcium 8.2 mg/dL (8.5-10.3) L 01/16/17 06:05 Total Bilirubin 1.1 mg/dL (0.2-1.0) H 01/16/17 06:05 AST 13 IU/L (10-42) 01/16/17 06:05 ALT 17 IU/L (10-60) 01/16/17 06:05 Alkaline Phosphatase 84 IU/L (42-121) 01/16/17 06:05 Total Protein 5.9 g/dL (6.7-8.2) L 01/16/17 06:05 Albumin 2.8 g/dL (3.2-5.5) L 01/16/17 06:05 Globulin 3.1 g/dL (2.1-4.2) 01/16/17 06:05 Albumin/Globulin Ratio 0.9 (1.0-2.2) L 01/16/17 06:05 Lipase 20 U/L (22-51) L 01/14/17 21:53 Urine Color YELLOW 01/15/17 00:30 Urine Clarity CLEAR (CLEAR) 01/15/17 00:30 Urine pH 5.5 PH (5.0-7.5) 01/15/17 00:30 Ur Specific [place] <=1.005 (1.002-1.030) 01/15/17 00:30 Urine Protein NEGATIVE mg/dL (NEGATIVE) 01/15/17 00:30 Urine Glucose (UA) NEGATIVE mg/dL (NEGATIVE) 01/15/17 00:30 Urine Ketones >=80 mg/dL (NEGATIVE) H 01/15/17 00:30 Urine Occult Blood SMALL (NEGATIVE) H 01/15/17 00:30 Urine Nitrite NEGATIVE (NEGATIVE) 01/15/17 00:30 Urine Bilirubin NEGATIVE (NEGATIVE) 01/15/17 00:30 Urine Urobilinogen 0.2 (NORMAL) E.U./dL (NORMAL) 01/15/17 00:30 Ur Leukocyte Esterase NEGATIVE (NEGATIVE) 01/15/17 00:30 Urine RBC 0-5 /HPF (0-5) 01/15/17 00:30 Urine WBC 0-3 /HPF (0-5) 01/15/17 00:30 Ur Squamous Epith Cells RARE Squamous (<= Few) 01/15/17 00:30 Urine Bacteria None Seen /HPF (None Seen) 01/15/17 00:30 Ur Microscopic Review INDICATED 01/15/17 00:30 Urine Culture Comments NOT INDICATED 01/15/17 00:30 Urine HCG, Qual NEGATIVE 01/14/17 21:50 Serum Ketones NEGATIVE (NEGATIVE) 01/14/17 21:53
[2017-01-16] MEDS: ATORVASTATIN 10 MG TABLET PO SCH (08:36)
[2017-01-16] MEDS: FAMOTIDINE 20 MG TABLET PO SCH (08:36)
[2017-01-16] MEDS: ENOXAPARIN 40 MG/0.4 ML SYRINGE SUBQ SCH (08:37)
[2017-01-16] MEDS: POLYETHYLENE GLYCOL 3350 17 GM PACKET PO SCH (08:38)
[2017-01-16] MEDS: INSULIN ASPART 300 UNIT/3 ML PEN SUBQ SCH ×4 (08:40→21:48)
[2017-01-16] MEDS ORDERED: PROCHLORPERAZINE 10 MG/2 ML VIAL IVP STA (14:55)
[2017-01-16] MEDS: SODIUM CHLORIDE FLUSH 0.9% 10 ML SYRINGE IVP PRN (15:16)
[2017-01-16] MEDS ORDERED: SODIUM CHLORIDE 0.9% IV ONE ×4 (16:00)
[2017-01-16] MEDS ORDERED: PROCHLORPERAZINE IV ONE ×4 (16:00)
[2017-01-16] MEDS ORDERED: cefTRIAXone 2 GM VIAL IVP SCH (17:00)
[2017-01-16] MEDS ORDERED: LORazepam 2 MG/ML SYRINGE IVP SCH (18:00)
[2017-01-16] MEDS ORDERED: cefTRIAXone 2 GM VIAL IV SCH (19:01)
[2017-01-16] MEDS: HYDROmorphone 1 MG/ML SYRINGE IVP PRN ×2 (21:44→23:49)
[2017-01-16] MEDS: cefTRIAXone 2 GM in SODIUM CHLORIDE 0.9% MINIBAG 100 ML IV SCH (21:44)
[2017-01-17] MEDS: ONDANSETRON ODT 4 MG TABLET TL PRN ×2 (02:12→07:58)
[2017-01-17] MEDS: HYDROmorphone 1 MG/ML SYRINGE IVP PRN ×3 (04:13→16:05)
[2017-01-17] MEDS: SODIUM CHLORIDE 0.9% 1,000 ML IV SCH ×3 (04:13→17:25)
[2017-01-17] MEDS: SODIUM CHLORIDE FLUSH 0.9% 10 ML SYRINGE IVP SCH ×3 (04:19→20:38)
[2017-01-17 06:52] LABS: BASOPHILS % (AUTO) 0.4 %; EOSINOPHILS % (AUTO) 0.2 %; HCT - HEMATOCRIT 31.8 % (37.0-47.0); HGB - HEMOGLOBIN 10.7 g/dL (12.0-16.0); LYMPHOCYTES # (AUTO) 1.2 10^3/uL (1.5-3.5); LYMPHOCYTES % (AUTO) 14.7 %; MEAN CORPUSCULAR HEMOGLOBIN 29.9 pg (27.0-31.0); MEAN CORPUSCULAR HGB CONC 33.7 g/dL (32.0-36.0); MEAN CORPUSCULAR VOLUME 88.5 fL (81.0-99.0); MEAN PLATELET VOLUME 7.5 fL (7.9-10.8); MONOCYTES # (AUTO) 0.4 10^3/uL (0.0-1.0); MONOCYTES % (AUTO) 5.4 %; NEUTROPHILS # (AUTO) 6.6 10^3/uL (1.5-6.6); NEUTROPHILS % (AUTO) 79.3 %; RED BLOOD COUNT 3.59 10^6/uL (4.20-5.40); RED CELL DISTRIBUTION WIDTH 13.9 % (12.0-15.0); UNCORRECTED WHITE BLOOD COUNT 8.3 x10^3/uL; WHITE BLOOD COUNT 8.3 x10^3/uL (4.8-10.8)
[2017-01-17 07:05] LABS: ALBUMIN/GLOBULIN RATIO 0.8 (1.0-2.2); BILIRUBIN,TOTAL 0.5 mg/dL (0.2-1.0); CALCIUM 8.4 mg/dL (8.5-10.3); CREATININE 0.4 mg/dL (0.4-1.0); POTASSIUM 3.2 mmol/L (3.5-5.0); TOTAL PROTEIN 6.4 g/dL (6.7-8.2)
[2017-01-17] MEDS: SODIUM CHLORIDE FLUSH 0.9% 10 ML SYRINGE IVP PRN ×3 (08:13→20:20)
[2017-01-17] MEDS ORDERED: ONDANSETRON 4 MG/2 ML VIAL ONE (08:14)
[2017-01-17] MEDS: ONDANSETRON 4 MG/2 ML VIAL IVP PRN ×2 (08:14→16:04)
[2017-01-17] MEDS: INSULIN ASPART 300 UNIT/3 ML PEN SUBQ SCH ×4 (08:16→21:16)
[2017-01-17] MEDS: POLYETHYLENE GLYCOL 3350 17 GM PACKET PO SCH (08:17)
[2017-01-17] MEDS: POTASSIUM CHLOR 10 MEQ/100 ML 100 ML IV SCH ×3 (09:25→17:16)
[2017-01-17] MEDS ORDERED: LORazepam 2 MG/ML SYRINGE IVP SCH (10:00)
--- NOTE | 2017-01-17 11:01 | PROVIDER PROGRESS NOTE ---
Assessment/Plan - Problem List (1) Pyelonephritis Assessment/Plan: Susannah a single fever last evening to 38.9, none this am. She is still having some flank pain more L than R. She had vomiting this am and recurrent nausea. She also has HAs. He WBC is back to nml. Will continue the Rocephin Unfortunately the urine was not cultured due to squamous cells in the sample. (2) Migraine Assessment/Plan: Still having HAs, not clear are migraines. - Current Meds Current Meds: Current Medications Generic Name Dose Route Start Last Admin Trade Name Freq PRN Reason Stop Dose Admin Acetaminophen 650 mg 01/15/17 01:50 01/16/17 20:52 Tylenol PO 650 mg Q4HR PRN Administration Pain 1 to 4 Atorvastatin Calcium 20 mg 01/15/17 09:00 01/16/17 08:36 Lipitor PO 20 mg DAILY LENO Administration Enoxaparin Sodium 40 mg 01/15/17 09:00 01/16/17 08:37 Lovenox SUBQ 40 mg DAILY LENO Administration Famotidine 20 mg 01/15/17 09:00 01/16/17 08:36 Pepcid PO 20 mg DAILY LENO Administration Hydromorphone HCl 1 mg 01/16/17 21:07 01/17/17 07:58 Dilaudid Inj IVP 1 mg Q2HR PRN Administration PAIN Sodium Chloride 1,000 mls @ 125 mls/hr 01/15/17 02:00 01/17/17 04:13 Normal Saline 0.9% IV 125 mls/hr .Q8H LENO Administration Ceftriaxone Sodium 2 gm/ 100 mls @ 200 mls/hr 01/16/17 20:00 01/16/17 21:44 Sodium Chloride IV Not Given Q24H LENO Potassium Chloride 100 mls @ 100 mls/hr 01/17/17 09:00 01/17/17 09:25 Potassium Chloride IV 01/17/17 11:59 100 mls/hr Q1HR LENO Administration Ibuprofen 600 mg 01/15/17 01:50 01/16/17 21:44 Motrin PO 600 mg Q6HR PRN Administration Pain 1 to 4 Insulin Aspart 3 - 11 unit 01/15/17 12:00 01/17/17 08:16 Novolog SUBQ Not Given 0800,1200,1700,2100 LENO Protocol Lorazepam 2 mg 01/17/17 10:00 01/17/17 09:25 Ativan Inj IVP 01/17/17 12:00 2 mg ONCE LENO Administration Ondansetron HCl 4 mg 01/17/17 08:06 01/17/17 08:14 Zofran Inj IVP 4 mg Q4HR PRN Administration Nausea / Vomiting Polyethylene Glycol 17 gm 01/15/17 09:00 01/17/17 08:17 Miralax PO Not Given DAILY LENO Sodium Chloride 10 ml 01/15/17 01:50 01/17/17 08:13 Normal Saline Flush 0.9% IVP 10 ml PRN PRN Administration NEEDED PER PROVIDER ORDERS Sodium Chloride 10 ml 01/15/17 06:00 01/17/17 04:19 Normal Saline Flush 0.9% IVP Not Given Q8HR LENO Zolpidem Tartrate 5 mg 01/15/17 01:50 01/16/17 23:50 Ambien PO 5 mg QPM PRN Administration Insomnia - Lab Result Fish Bone Diagrams: 01/17/17 06:34 01/17/17 06:34 - Additional Planning My Orders: My Active Orders 01/17/17 08:06 Ondansetron Inj [Zofran Inj] 4 mg IVP Q4HR PRN 01/17/17 09:00 Potassium Chlor 10 Meq/100 ml [Potassium Chloride] 100 ml IV Q1HR 01/17/17 10:00 LORazepam INJ [Ativan Inj] 2 mg IVP ONCE 01/18/17 05:00 CBC - COMP BLD CT W/AUTO DIFF [HEME] DAILYLAB COMPREHENSIVE METABOLIC PANEL [CHEM] DAILYLAB Subjective - Subjective Patient Reports: Back Pain, Headache, Nausea Nursing Reports: Headache, Vomitting Objective Vital Signs: Vital Signs - 24 hr 01/16/17 01/16/17 01/16/17 15:44 21:02 22:16 Temperature 36.6 C 38.9 C H 36.9 C Heart Rate [ Brachial] Heart Rate [ 78 Radial] Respiratory 18 Rate Blood Pressure 136/62 H [Left Brachial artery] Blood Pressure 121/79 [Left Radial artery] Blood Pressure [Right Brachial artery] O2 Saturation 98 01/16/17 01/17/17 23:35 07:28 Temperature 36.8 C 36.3 C L Heart Rate [ 87 Brachial] Heart Rate [ 91 Radial] Respiratory 18 16 Rate Blood Pressure 113/60 [Left Brachial artery] Blood Pressure [Left Radial artery] Blood Pressure 118/70 [Right Brachial artery] O2 Saturation 96 97 Oxygen O2 Source Room air I&O (Last 24 Hrs): Intake and Output Totals x24h 01/15/17 01/16/17 01/17/17 23:59 23:59 23:59 Intake Total 2990 2261 1301 Output Total 1000 900 Balance 1990 2261 401 General: Alert, Oriented x3, Cooperative HEENT: PERRLA, EOMI Neck: No JVD, No thyromegaly Neuro: Alert, Oriented Times 3 Cardiovascular: Regular rate Respiratory: Chest non-tender, No respiratory distress, Breath sounds nml Abdomen: Normal bowel sounds, Soft, No tenderness Extremities: No clubbing, No cyanosis, No edema - Results Results: Laboratory Results WBC 8.3 x10^3/uL (4.8-10.8) 01/17/17 06:34 RBC 3.59 10^6/uL (4.20-5.40) L 01/17/17 06:34 Hgb 10.7 g/dL (12.0-16.0) L 01/17/17 06:34 Hct 31.8 % (37.0-47.0) L 01/17/17 06:34 MCV 88.5 fL (81.0-99.0) 01/17/17 06:34 MCH 29.9 pg (27.0-31.0) 01/17/17 06:34 MCHC 33.7 g/dL (32.0-36.0) 01/17/17 06:34 RDW 13.9 % (12.0-15.0) 01/17/17 06:34 Plt Count 196 10^3/uL (130-450) 01/17/17 06:34 MPV 7.5 fL (7.9-10.8) L 01/17/17 06:34 Neut # 6.6 10^3/uL (1.5-6.6) 01/17/17 06:34 Lymph # 1.2 10^3/uL (1.5-3.5) L 01/17/17 06:34 [place] # 0.4 10^3/uL (0.0-1.0) 01/17/17 06:34 Eos # 0.0 10^3/uL (0.0-0.7) 01/17/17 06:34 Baso # 0.0 10^3/uL (0.0-0.1) 01/17/17 06:34 Absolute Nucleated RBC 0.00 x10^3/uL 01/17/17 06:34 Total Counted 100 01/14/17 21:53 Band Neuts % (Manual) 5 % (0-10) 01/14/17 21:53 Neutrophils # (Manual) 21.0 10^3/uL (1.5-6.6) H 01/14/17 21:53 Lymphocytes # (Manual) 3.0 10^3/uL (1.5-3.5) 01/14/17 21:53 Monocytes # (Manual) 1.3 10^3/uL (0.0-1.0) H 01/14/17 21:53 Nucleated RBCs 0.0 /100WBC 01/17/17 06:34 Differential Comment MANUAL DIFFERENTIAL 01/14/17 21:53 Manual Slide Review Indicated 01/15/17 06:29 Platelet Estimate NORMAL (130-450,000) (NORMAL) 01/15/17 06:29 Platelet Morphology NORMAL APPEARANCE (NORMAL) 01/15/17 06:29 RBC Morph Micro Appear NORMAL APPEARANCE (NORMAL) 01/15/17 06:29 Sodium 136 mmol/L (135-145) 01/17/17 06:34 Potassium 3.2 mmol/L (3.5-5.0) L 01/17/17 06:34 Chloride 104 mmol/L (101-111) 01/17/17 06:34 Carbon Dioxide 24 mmol/L (21-32) 01/17/17 06:34 Anion Gap 8.0 (6-13) 01/17/17 06:34 BUN 8 mg/dL (6-20) 01/17/17 06:34 Creatinine 0.4 mg/dL (0.4-1.0) 01/17/17 06:34 Estimated GFR (MDRD) 181 (>89) 01/17/17 06:34 Glucose 193 mg/dL (70-100) H 01/17/17 06:34 POC Whole Bld Glucose 187 mg/dL (70 - 100) H 01/17/17 07:24 Fasting Glucose 347 mg/dL (70-100) H 01/15/17 02:11 Glycated Hemoglobin 10.3 % (4.6-6.2) H 01/15/17 06:29 Estim Average Glucose 249 (70-100) H 01/15/17 06:29 Calcium 8.4 mg/dL (8.5-10.3) L 01/17/17 06:34 Total Bilirubin 0.5 mg/dL (0.2-1.0) 01/17/17 06:34 AST 20 IU/L (10-42) 01/17/17 06:34 ALT 19 IU/L (10-60) 01/17/17 06:34 Alkaline Phosphatase 85 IU/L (42-121) 01/17/17 06:34 Total Protein 6.4 g/dL (6.7-8.2) L 01/17/17 06:34 Albumin 2.8 g/dL (3.2-5.5) L 01/17/17 06:34 Globulin 3.6 g/dL (2.1-4.2) 01/17/17 06:34 Albumin/Globulin Ratio 0.8 (1.0-2.2) L 01/17/17 06:34 Lipase 20 U/L (22-51) L 01/14/17 21:53 Urine Color YELLOW 01/15/17 00:30 Urine Clarity CLEAR (CLEAR) 01/15/17 00:30 Urine pH 5.5 PH (5.0-7.5) 01/15/17 00:30 Ur Specific [place] <=1.005 (1.002-1.030) 01/15/17 00:30 Urine Protein NEGATIVE mg/dL (NEGATIVE) 01/15/17 00:30 Urine Glucose (UA) NEGATIVE mg/dL (NEGATIVE) 01/15/17 00:30 Urine Ketones >=80 mg/dL (NEGATIVE) H 01/15/17 00:30 Urine Occult Blood SMALL (NEGATIVE) H 01/15/17 00:30 Urine Nitrite NEGATIVE (NEGATIVE) 01/15/17 00:30 Urine Bilirubin NEGATIVE (NEGATIVE) 01/15/17 00:30 Urine Urobilinogen 0.2 (NORMAL) E.U./dL (NORMAL) 01/15/17 00:30 Ur Leukocyte Esterase NEGATIVE (NEGATIVE) 01/15/17 00:30 Urine RBC 0-5 /HPF (0-5) 01/15/17 00:30 Urine WBC 0-3 /HPF (0-5) 01/15/17 00:30 Ur Squamous Epith Cells RARE Squamous (<= Few) 01/15/17 00:30 Urine Bacteria None Seen /HPF (None Seen) 01/15/17 00:30 Ur Microscopic Review INDICATED 01/15/17 00:30 Urine Culture Comments NOT INDICATED 01/15/17 00:30 Urine HCG, Qual NEGATIVE 01/14/17 21:50 Serum Ketones NEGATIVE (NEGATIVE) 01/14/17 21:53
[2017-01-17] MEDS: FAMOTIDINE 20 MG TABLET PO SCH (12:07)
[2017-01-17] MEDS: ATORVASTATIN 10 MG TABLET PO SCH (12:07)
[2017-01-17] MEDS: PROCHLORPERAZINE 10 MG/2 ML VIAL IVP PRN ×2 (12:30→21:15)
[2017-01-17] MEDS: ENOXAPARIN 40 MG/0.4 ML SYRINGE SUBQ SCH (12:32)
[2017-01-17] MEDS ORDERED: SUMAtriptan 6 MG/0.5 ML VIAL SUBQ SCH (17:30)
[2017-01-17] MEDS ORDERED: POTASSIUM CHLOR 10 MEQ/100 ML 100 ML IV ONE (18:00)
--- NOTE | 2017-01-17 20:36 | XRAY Preliminary Report ---
Exam: XR Chest 2 View PA/LAT IMPRESSION: Lower lung volumes compared to the prior. No acute cardiopulmonary disease seen. [facility] SITE ID: [id number]
--- NOTE | 2017-01-17 20:38 | XRAY Report ---
EXAM: CHEST RADIOGRAPHY EXAM DATE: 01/17/2017 08:09 PM. CLINICAL HISTORY: Hypoxemia. COMPARISON: Chest 09/23/2016. TECHNIQUE: 2 views. FINDINGS: Lungs/Pleura: No focal opacities evident. No pleural effusion. No pneumothorax. Lower lung volumes co mpared to the prior. Mediastinum: Within normal limits. IMPRESSION: Lower lung volumes compared to the prior. No acute cardiopulmonary disease seen. [facility] Referring Provider Line: [phone] SITE ID: [id number]
[2017-01-17 20:44] LABS: HCG UR QUAL NEGATIVE
[2017-01-17] MEDS: cefTRIAXone 2 GM in SODIUM CHLORIDE 0.9% MINIBAG 100 ML IV SCH (21:14)
[2017-01-18] MEDS: HYDROmorphone 1 MG/ML SYRINGE IVP PRN (01:20)
[2017-01-18] MEDS: SODIUM CHLORIDE 0.9% 1,000 ML IV SCH ×3 (03:13→12:48)
[2017-01-18] MEDS: ACETAMINOPHEN 325 MG TABLET PO PRN ×2 (03:14→06:53)
[2017-01-18] MEDS: SODIUM CHLORIDE FLUSH 0.9% 10 ML SYRINGE IVP SCH ×2 (05:02→15:13)
[2017-01-18 07:54] LABS: BASOPHILS % (AUTO) 0.3 %; EOSINOPHILS % (AUTO) 0.1 %; HCT - HEMATOCRIT 29.7 % (37.0-47.0); HGB - HEMOGLOBIN 10.2 g/dL (12.0-16.0); LYMPHOCYTES # (AUTO) 2.1 10^3/uL (1.5-3.5); LYMPHOCYTES % (AUTO) 20.2 %; MEAN CORPUSCULAR HEMOGLOBIN 29.7 pg (27.0-31.0); MEAN CORPUSCULAR HGB CONC 34.2 g/dL (32.0-36.0); MEAN CORPUSCULAR VOLUME 86.8 fL (81.0-99.0); MEAN PLATELET VOLUME 7.4 fL (7.9-10.8); MONOCYTES # (AUTO) 0.9 10^3/uL (0.0-1.0); NEUTROPHILS # (AUTO) 7.1 10^3/uL (1.5-6.6); NEUTROPHILS % (AUTO) 70.4 %; RED BLOOD COUNT 3.42 10^6/uL (4.20-5.40); RED CELL DISTRIBUTION WIDTH 13.8 % (12.0-15.0); UNCORRECTED WHITE BLOOD COUNT 10.1 x10^3/uL; WHITE BLOOD COUNT 10.1 x10^3/uL (4.8-10.8)
[2017-01-18 08:03] LABS: ALBUMIN/GLOBULIN RATIO 0.8 (1.0-2.2); BILIRUBIN,TOTAL 0.6 mg/dL (0.2-1.0); CALCIUM 8.5 mg/dL (8.5-10.3); CREATININE 0.4 mg/dL (0.4-1.0); TOTAL PROTEIN 6.3 g/dL (6.7-8.2)
[2017-01-18 08:13] LABS: MAGNESIUM 1.9 mg/dL (1.7-2.8)
[2017-01-18] MEDS: ATORVASTATIN 10 MG TABLET PO SCH (09:20)
[2017-01-18] MEDS: FAMOTIDINE 20 MG TABLET PO SCH (09:20)
[2017-01-18] MEDS: ENOXAPARIN 40 MG/0.4 ML SYRINGE SUBQ SCH (09:21)
[2017-01-18] MEDS: INSULIN ASPART 300 UNIT/3 ML PEN SUBQ SCH ×3 (09:22→16:40)
[2017-01-18] MEDS: POLYETHYLENE GLYCOL 3350 17 GM PACKET PO SCH (10:55)
[2017-01-18] MEDS: IBUPROFEN 600 MG TABLET PO PRN (10:58)
--- NOTE | 2017-01-18 11:30 | Ultrasound Preliminary Report ---
Exam: US Retroperitoneal Limited IMPRESSION: 1. No hydronephrosis. 2. No sonographic evidence for renal abscess. 3. Known inflammation involving left mid to upper kidney was more apparent on prior CT. 4. Fatty liver. [facility] SITE ID: [id number]
--- NOTE | 2017-01-18 11:32 | Ultrasound Report ---
EXAM: RENAL ULTRASOUND EXAM DATE: 01/18/2017 09:21 AM. CLINICAL HISTORY: Resistant Pyelonephritis. COMPARISON: Abdominal pelvic CT 01/14/2017. TECHNIQUE: Real-time scanning was performed with static images obtained. FINDINGS: Right Kidney: 13.7 x 5.3 x 6.1 cm. 1.4 cm parenchymal thickness. Normal echotexture with no stones, c ontour-deforming masses, or hydronephrosis. Fatty infiltrated liver noted adjacent to the right kidney. Left Kidney: 14.8 x 7.1 x 6.6 left renal parenchymal thickness 1.7 cm. No hydronephrosis. Known inf lammation involving left mid to upper kidney was more apparent on prior CT. Bladder: Bilateral jets seen. The prevoid bladder volume was 184 cc. The postvoid bladder volume was 18 cc. IMPRESSION: 1. No hydronephrosis. 2. No sonographic evidence for renal abscess. 3. Known inflammation involving left mid to upper kidney was more apparent on prior CT. 4. Fatty liver. [facility] Referring Provider Line: [phone] SITE ID: [id number]
[2017-01-18 15:46] VITALS: BP 128/72
[2017-01-18] MEDS ORDERED: POTASSIUM CHLORIDE 10 MEQ CAPSULE PO SCH (16:00)
[2017-01-18] MEDS ORDERED: cefTRIAXone 2 GM in SODIUM CHLORIDE 0.9% MINIBAG 100 ML IV SCH (17:00)
--- NOTE | 2017-01-18 17:30 | Discharge Plan ---
Discharge Plan Disposition: 01 Home, Self Care Condition: Good Prescriptions: Cefuroxime Axetil [Ceftin] 500 mg PO Q12H #14 tablet Diet: Regular Activity Restrictions: Activity as Tolerated Shower Restrictions: No Driving Restrictions: No Weight Bearing: Full Weight Instruction Topics: Cefuroxime tablets, Pyelonephritis Dc Additional Instructions or Follow Up instructions: Drink extra fluids each day for next week and eat two bananas a day for the next week for potassium. Thanks and a quick recovery to you. No Smoking: If you smoke, Please STOP! Call for help. Follow-up with: Radha Tariq PA-C [Primary Care Provider] - 2 Weeks
--- NOTE | 2017-01-20 15:52 | DISCHARGE SUMMARY ---
DATE OF ADMISSION: 01/15/2017 DATE OF DISCHARGE: 01/18/2017 PRIMARY CARE PHYSICIAN: CRIS Tan ADMISSION DIAGNOSES 1. Pyelonephritis. 2. Abdominal pain with nausea and possible cholelithiasis. 3. Diabetes with elevated glucose. 4. Obesity. DISCHARGE DIAGNOSES 1. Pyelonephritis with improvement. 2. Abdominal pain with nausea secondary to pyelonephritis. 3. Diabetes, uncontrolled, with a hemoglobin A1c of 10.3, average 249. CONSULTATIONS: None. SPECIAL PROCEDURES CT abdomen and pelvis, which showed: 1. Left mid kidney pyelonephritis. 2. Areas of urothelial thickening about the renal pelvis bilaterally, left greater than right, with associated mild abnormal enhancement. There is concern for concurrent urinary tract infection. 3. At least 1 gallstone within a partially distended gallbladder, no evidence of cholecystitis, no biliary dilatation. 4. No bowel obstruction, appendix normal, ovaries physiologic in appearance. HOSPITAL COURSE AND MANAGEMENT: The initial presentation, hospital emergency department evaluation and hospitalist plans are well described in the History and Physical. SUMMARY: This is a 36-year-old white female with a history of migraines and type 2 diabetes. She had 2 to 3 day history of malaise, fever to 102, nausea, vomiting, diarrhea, and overall arthralgias. The patient in the emergency department was found to have fever of 38 and was shown to have pyelonephritis. The patient was started on Zosyn antibiotic, IV fluids, pain medication without marked improvement the first 2 days. The patient was still having fevers through the night. Into the 3rd day, patient had a change her IV antibiotics from Zosyn to Rocephin. The patient the following day had diminution in her fever to 38.1 and only on 1 occasion. The following day, she felt much better. Discharged on 01/18/2017. PHYSICAL EXAMINATION ON 01/18/2017 BEFORE DISCHARGE VITAL SIGNS: 36.2, 67, 128/72, 20, 97% room air saturation. GENERAL: The patient is a well-developed, well-nourished, obese female. EYES: EOMs within normal limits, PERRL, nonicteric. MOUTH AND THROAT: Moist mucous membrane. Normal dentition. No other pathology of mouth or pharynx. NECK: No lymphadenopathy, no thyromegaly, no JVD. CHEST WALL: Nontender. Symmetric. No breast exam done. HEART: Normal sinus rhythm. No murmur, rubs, clicks. LUNGS: Clear, good air movement bilaterally. ABDOMEN: Massively thick abdominal wall. No further exam except noted that it is soft and nontender. EXTREMITIES: No gross edema, no cyanosis on vascular exam. NEUROLOGIC: Cognition intact. Cranial nerves intact. Motor intact. LABORATORY DATA: On 01/18/2017 white count 10.1, 10 and 30 hemoglobin and hematocrit, platelets 260. Sodium 137, potassium 3.0, chloride 105, CO2 of 23, BUN 6, creatinine 0.4, glucose 176. The patient's calcium 8.5. Albumin is 2.7. Urine unfortunately was not cultured because of squamous cells in the original urine specimen. The patient's blood cultures were negative x2. PATIENT'S DISCHARGE MEDICATIONS Are 1. Singular 10 mg a day. 2. Metformin 500 mg a day. 3. Atorvastatin 20 mg a day. 4. Ceftin 500 mg q.12 h. for 7 days. PATIENT'S DISCHARGE ISSUES: Pyelonephritis with a test of cure. Needs a urine and possibly culture. She needs to be followed for the diabetes with an urgent need for improved control. Suggest a regimen of Lantus and nutritional NovoLog instead of NPH for smoother control. The patient is discharged ambulatory. Time spent in discharge activity is 35 minutes. The patient was examined on the day of discharge. JOB #: [id number] EXT JOB #:[id number] MTDD
== END 2017-01-18 17:56 | disposition home or self-care (01) | DRG 690 ==
LOC: ED 21:38 → MS2 01-15 01:50
PROVIDERS: ADMIT Internal Medicine; ATTEND Internal Medicine
DX: N12 Tubulo-interstitial nephritis, not specified as acute or chronic (principal); E11.65 Type 2 diabetes mellitus with hyperglycemia; K80.80 Other cholelithiasis without obstruction; G43.909 Migraine, unspecified, not intractable, without status migrainosus; E66.9 Obesity, unspecified; Z68.36 Body mass index [BMI] 36.0-36.9, adult; Z79.84 Long term (current) use of oral hypoglycemic drugs; Z96.659 Presence of unspecified artificial knee joint
CPT/HCPCS: 36415; 71020; 74177; 76775; 80048; 80053; 81001; 81003; 81025; 82009; 82947; 83036; 83605; 83690; 83735; 84132; 85025; 87040; 87086; 96361; 96365; 96375; 96376; 99284; 99285

== ENCOUNTER 2017-01-21 21:15 | Emergency (ER) | payer OTHER ==
[2017-01-21 21:22] VITALS: BP 160/92
[2017-01-21] MEDS ORDERED: IOPAMIDOL-300 100 ML VIAL IVP ONE (22:18)
--- NOTE | 2017-01-21 22:45 | CT Preliminary Report ---
Exam: CT Chest Angio (PE) IMPRESSION: 1. No pulmonary emboli identified. 2. Persistent features of left pyelonephritis, possibly slightly worse compared to the prior exam but no evidence of renal abscess. [facility] SITE ID: [id number]
--- NOTE | 2017-01-21 22:49 | CT Report ---
EXAM: CT ANGIOGRAM CHEST EXAM DATE: 01/21/2017 10:22 PM. CLINICAL HISTORY: Chest pain, elevated dimer. COMPARISON: CT abdomen 01/14/2017. TECHNIQUE: Routine helical imaging was performed through the chest in the pulmonary arterial phase. I V Contrast: Yes. Reconstructions: Coronal 3-D MIP reconstructions.Sagittal and coronal. In accordance with CT protocol optimization, one or more of the following dose reduction techniques w ere utilized for this exam: automated exposure control, adjustment of mA and/or KV based on patient s ize, or use of iterative reconstructive technique. FINDINGS: Pulmonary Arteries: Technically adequate for evaluation through the segmental arteries. No evidence f or acute or chronic pulmonary emboli. Lungs/Pleura: Trace bilateral effusions. No pneumonia or overt edema currently. Mediastinum: No acute aortic syndrome. No cardiac enlargement. Mild mediastinal adenopathy is probab ly reactive. For example, right paratracheal node on image 20 series 5 measures 9 mm short axis. Upper Abdomen: Large wedge-shaped hypodense focus in the left kidney, may be slightly increased from the previous study. No renal abscess seen. Cholelithiasis less well appreciated. Fatty liver. Other: None. IMPRESSION: 1. No pulmonary emboli identified. 2. Persistent features of left pyelonephritis, possibly slightly worse compared to the prior exam but no evidence of renal abscess. [facility] Referring Provider Line: [phone] SITE ID: [id number]
--- NOTE | 2017-01-21 22:52 | ED Physician Documentation ---
PD HPI DYSPNEA - Stated complaint Stated Complaint: ABN LAB - Chief complaint Chief Complaint: Resp - History obtained from History obtained from: Patient - History of Present Illness Timing - onset: How many days ago (2) Timing - details: Gradual onset, Still present Inciting event(s): Immobilization/travel Associated symptoms: Cough, Chest pain / discomfort. No: Wheezing Similar symptoms before: Work up / diagnostics, Treatment Recently seen: Clinic - Additional information Additional information: Patient is a 36 year old female who was sent into the emergency department by her pmd for chest pain and an elevated dimer. patient had recently been hospitalized for kidney infection and recently discharged. Patient went to see her pmd today and as part of the work up d-dimer was performed and was found to be elevated. Review of Systems Constitutional: denies: Fever, Chills Eyes: denies: Decreased vision, Photophobia Ears: denies: Ear pain, Drainage/discharge Nose: denies: Congestion, Sinus pressure / pain Throat: denies: Dental pain / toothache, Sore throat Cardiac: denies: Chest pain / pressure, Palpitations, Pedal edema, Calf pain Respiratory: reports: Dyspnea. denies: Wheezing GI: denies: Abdominal Pain, Nausea, Vomiting : denies: Dysuria, Frequency Skin: denies: Rash, Lesions Musculoskeletal: reports: Back pain. denies: Neck pain Neurologic: denies: Generalized weakness, Focal weakness, Difficulty speaking Psychiatric: reports: Depressed. denies: Anxiety Immunocompromised: denies: Immunocompromised PD PAST MEDICAL HISTORY - Past Medical History Past Medical History: Yes Cardiovascular: High cholesterol Neuro: Headache/migraine Endocrine/Autoimmune: Type 2 diabetes GI: GERD - Past Surgical History Past Surgical History: Yes Ortho: Knee replacement, Shoulder arthroplasty HEENT: Tonsil/Adenoidectomy - Present Medications Home Medications: Ambulatory Orders Medication Instructions Recorded Confirmed Atorvastatin Calcium 20 mg PO DAILY 01/14/17 01/21/17 Metformin HCl [Metformin HCl ER] 500 mg PO DAILY 01/15/17 01/21/17 Montelukast [Singulair] 10 mg PO QPM PRN 01/15/17 01/21/17 Cefuroxime Axetil [Ceftin] 500 mg PO Q12H #14 tablet 01/18/17 01/21/17 - Allergies Allergies/Adverse Reactions: Allergies Allergy/AdvReac Type Severity Reaction Status Date / Time doxycycline Allergy Unknown Verified 01/14/17 21:42 hydrocodone Allergy Headache Verified 01/14/17 21:42 morphine Allergy Hallucinati Verified 01/21/17 21:22 ons - Social History Does the pt smoke?: No Smoking Status: Never smoker Does the pt drink ETOH?: No Does the pt have substance abuse?: No - Immunizations Immunizations are current?: Yes - POLST Patient has POLST: No PD ED PE NORMAL - Vitals Vital signs reviewed: Yes - General General: Alert and oriented X 3, No acute distress - HEENT HEENT: Atraumatic, PERRL, Pharynx benign - Neck Neck: No JVD - Cardiac Cardiac: RRR, No murmur - Respiratory Respiratory: No respiratory distress, Clear bilaterally - Abdomen Abdomen: Soft, Non tender, Non distended - Derm Derm: Normal color, Warm and dry, No rash - Extremities Extremities: No deformity, No calf tenderness / cord - Neuro Neuro: Alert and oriented X 3, No motor deficit, No sensory deficit - Psych Psych: Normal mood, Normal affect Results - Vitals Vitals: Vital Signs - 24 hr 01/21/17 01/21/17 21:18 23:05 Temperature 36.3 C L 36.5 C Heart Rate 70 70 Respiratory 20 20 Rate Blood Pressure 160/92 H O2 Saturation 97 96 Oxygen O2 Source Room air - Rads (name of study) ct angio Radiology: Final report received (no PE but signs of pyelonephritis) PD MEDICAL DECISION MAKING - ED course Complexity details: reviewed old records, reviewed results, re-evaluated patient , considered differential, d/w patient ED course: Patient was seen and examined at bedside. Patient was well appearing and in no acute distress. IV access was gained. previous labs were reviewed. Patient was sent for imaging. when patient returned the results were reviewed. there was no PE. patient was well appearing and denied any flank pain. patient was stable for discharge and outpatient follow up. Departure - Departure Disposition: 01 Home, Self Care Clinical Impression: Chest pain Condition: Good Instructions: ED Chest Pain NonCardiac Follow-Up: Radha Tariq PA-C [Primary Care Provider] - Comments: Your diagnostics today were within normal limits. there was no sign of pulmonary embolism. You should finish your course of antibiotics. You should follow up with your doctor as needed. You may return to the emergency department at any time for new, worsening or uncontrollable symptoms. Discharge Date/Time: 01/21/17 23:00
== END 2017-01-21 23:00 | disposition home or self-care (01) ==
LOC: ED 21:15
DX: R07.9 Chest pain, unspecified (principal); E11.9 Type 2 diabetes mellitus without complications; Z79.84 Long term (current) use of oral hypoglycemic drugs; Z96.659 Presence of unspecified artificial knee joint
CPT/HCPCS: 71275; 99283; Q9967

== ENCOUNTER → 2017-01-21 | Outpatient (CLI) | payer OTHER ==
[2017-01-21 15:31] LABS: BASOPHILS # (AUTO) 0.1 10^3/uL (0.0-0.1); EOSINOPHILS # (AUTO) 0.1 10^3/uL (0.0-0.7); EOSINOPHILS % (AUTO) 0.8 %; HCT - HEMATOCRIT 34.9 % (37.0-47.0); HGB - HEMOGLOBIN 11.6 g/dL (12.0-16.0); LYMPHOCYTES # (AUTO) 3.7 10^3/uL (1.5-3.5); LYMPHOCYTES % (AUTO) 26.4 %; MEAN CORPUSCULAR HEMOGLOBIN 28.8 pg (27.0-31.0); MEAN CORPUSCULAR HGB CONC 33.3 g/dL (32.0-36.0); MEAN CORPUSCULAR VOLUME 86.5 fL (81.0-99.0); MONOCYTES # (AUTO) 0.7 10^3/uL (0.0-1.0); NEUTROPHILS # (AUTO) 9.4 10^3/uL (1.5-6.6); NEUTROPHILS % (AUTO) 66.8 %; NUCLEATED RED BLOOD CELLS AUTO 0.2 /100WBC; RED BLOOD COUNT 4.03 10^6/uL (4.20-5.40); UNCORRECTED WHITE BLOOD COUNT 15.7 x10^3/uL
[2017-01-21 15:54] LABS: ALBUMIN/GLOBULIN RATIO 0.8 (1.0-2.2); BILIRUBIN,TOTAL 0.6 mg/dL (0.2-1.0); CALCIUM 9.2 mg/dL (8.5-10.3); CREATININE 0.5 mg/dL (0.4-1.0); POTASSIUM 3.2 mmol/L (3.5-5.0)
[2017-01-21 16:55] LABS: PLATELET ESTIMATE, MANUAL NORMAL (130-450,000) (NORMAL); PLATELET MORPHOLOGY NORMAL APPEARANCE (NORMAL)
[2017-01-21 16:56] LABS: WBC MORPHOLOGY (MULTIPLE) NORMAL APPEARANCE (NORMAL)
== END ==
LOC: LAB 08:00
PROVIDERS: ATTEND Physician Assistant Medical
DX: N12 Tubulo-interstitial nephritis, not specified as acute or chronic (principal); R07.9 Chest pain, unspecified
CPT/HCPCS: 36415; 80053; 85025; 85379; 87086

== ENCOUNTER 2017-01-24 13:31 | Outpatient (CLI) | payer OTHER | END 2017-01-24 13:32 | disposition home or self-care (01) | LOC: DI 13:31 | PROVIDERS: ATTEND Physician Assistant Medical | DX: R01.1 Cardiac murmur, unspecified (principal); R50.9 Fever, unspecified; I51.7 Cardiomegaly | CPT/HCPCS: 93306 ==

== ENCOUNTER 2017-01-28 20:47 | Emergency (ER) | payer OTHER ==
[2017-01-28] MEDS ORDERED: SODIUM CHLORIDE 0.9% 1,000 ML IV ONE (21:38)
--- NOTE | 2017-01-28 21:41 | ED Physician Documentation ---
History of Present Illness - Stated complaint Stated Complaint: SHAKY,LIGHTHEADED - Chief complaint Chief Complaint: Neuro - History obtained from History obtained from: Patient - History of Present Illness Timing: Other (36-year-old woman with type 2 diabetes, recent admission for her pyelonephritis presents with 36 hours of lightheadedness and nausea. She has finished her antibiotics. She was also started on Januvia 3 days ago for help with her blood sugar control which have been high. There is no abdominal pain or urinary complaints. She has very mild low back pain but better than it was when she was admitted for pyelonephritis. No fevers or chills. She has had sweats at times.) Review of Systems Constitutional: reports: Fatigue, Sweats. denies: Fever, Chills Nose: denies: Rhinorrhea / runny nose, Congestion Cardiac: denies: Chest pain / pressure, Palpitations Respiratory: denies: Dyspnea, Cough PD PAST MEDICAL HISTORY - Past Medical History Cardiovascular: High cholesterol Neuro: Headache/migraine Endocrine/Autoimmune: Type 2 diabetes GI: GERD - Past Surgical History Past Surgical History: Yes Ortho: Knee replacement, Shoulder arthroplasty HEENT: Tonsil/Adenoidectomy - Present Medications Home Medications: Ambulatory Orders Medication Instructions Recorded Confirmed Atorvastatin Calcium 20 mg PO DAILY 01/14/17 01/21/17 Metformin HCl [Metformin HCl ER] 500 mg PO DAILY 01/15/17 01/21/17 Montelukast [Singulair] 10 mg PO QPM PRN 01/15/17 01/21/17 Cefuroxime Axetil [Ceftin] 500 mg PO Q12H #14 tablet 01/18/17 01/21/17 - Allergies Allergies/Adverse Reactions: Allergies Allergy/AdvReac Type Severity Reaction Status Date / Time doxycycline Allergy Unknown Verified 01/28/17 20:56 hydrocodone Allergy Headache Verified 01/28/17 20:56 morphine Allergy Hallucinati Verified 01/28/17 20:56 ons - Social History Does the pt smoke?: No Smoking Status: Never smoker Does the pt drink ETOH?: No Does the pt have substance abuse?: No - Immunizations Immunizations are current?: Yes - POLST Patient has POLST: No PD ED PE NORMAL - Vitals Vital signs reviewed: Yes - General General: Alert and oriented X 3, No acute distress, Well developed/nourished - HEENT HEENT: PERRL, EOMI, Ears normal, Moist mucous membranes, Pharynx benign - Neck Neck: Supple, no meningeal sign, No bony TTP - Cardiac Cardiac: RRR, No murmur - Respiratory Respiratory: No respiratory distress, Clear bilaterally - Abdomen Abdomen: Normal bowel sounds, Soft, Non tender - Back Back: No CVA TTP, No spinal TTP - Derm Derm: Normal color, Warm and dry - Extremities Extremities: No edema, No calf tenderness / cord - Neuro Neuro: Alert and oriented X 3, Normal speech - Psych Psych: Normal mood, Normal affect Results - Vitals Vitals: Vital Signs - 24 hr 01/28/17 01/28/17 20:56 23:02 Temperature 36.8 C Heart Rate 93 87 Respiratory 18 18 Rate Blood Pressure 144/98 H 107/74 O2 Saturation 98 97 Oxygen O2 Source Room air - EKG (time done) 2205 Rate: Rate (enter#) (92) Rhythm: NSR [place]: Normal Intervals: Normal [place] QRS: Normal Ischemia: Normal ST segments Compare to prior EKG: Unchanged from prior EKG Computer interpretation: Agree with computer - Labs Labs: Laboratory Tests 01/28/17 01/28/17 01/28/17 21:37 21:57 21:57 WBC 16.2 H RBC 4.74 Hgb 13.8 Hct 41.5 MCV 87.4 MCH 29.2 MCHC 33.4 RDW 14.3 Plt Count 494 H MPV 7.5 L Neut # 10.3 H Lymph # 4.9 H [place] # 0.7 Eos # 0.1 Baso # 0.1 Absolute Nucleated RBC 0.01 Nucleated RBCs 0.0 Sodium 135 Potassium 4.1 Chloride 97 L Carbon Dioxide 28 Anion Gap 10.0 BUN 17 Creatinine 0.8 Estimated GFR (MDRD) 81 L Glucose 230 H POC Whole Bld Glucose 268 H Calcium 9.7 Total Bilirubin 0.9 AST 34 ALT 32 Alkaline Phosphatase 120 Total Protein 7.9 Albumin 4.2 Globulin 3.7 Albumin/Globulin Ratio 1.1 Lipase 24 Urine Color Urine Clarity Urine pH Ur Specific [place] Urine Protein Urine Glucose (UA) Urine Ketones Urine Occult Blood Urine Nitrite Urine Bilirubin Urine Urobilinogen Ur Leukocyte Esterase Ur Microscopic Review Urine Culture Comments Urine HCG, Qual 01/28/17 22:40 WBC RBC Hgb Hct MCV MCH MCHC RDW Plt Count MPV Neut # Lymph # [place] # Eos # Baso # Absolute Nucleated RBC Nucleated RBCs Sodium Potassium Chloride Carbon Dioxide Anion Gap BUN Creatinine Estimated GFR (MDRD) Glucose POC Whole Bld Glucose Calcium Total Bilirubin AST ALT Alkaline Phosphatase Total Protein Albumin Globulin Albumin/Globulin Ratio Lipase Urine Color YELLOW Urine Clarity CLEAR Urine pH 6.0 Ur Specific [place] 1.025 Urine Protein NEGATIVE Urine Glucose (UA) NEGATIVE Urine Ketones 15 H Urine Occult Blood TRACE-INTA Urine Nitrite NEGATIVE Urine Bilirubin NEGATIVE Urine Urobilinogen 0.2 (NORMAL) Ur Leukocyte Esterase NEGATIVE Ur Microscopic Review NOT INDICATED Urine Culture Comments NOT INDICATED Urine HCG, Qual NEGATIVE PD MEDICAL DECISION MAKING - ED course ED course: 36-year-old woman with nonspecific dizziness and sweats. Recent admission for pyelonephritis and this started shortly after starting Januvia for glycemic control. She has no abnormality on examination and lab work demonstrates modest hyperglycemia, unremarkable urinalysis, no acidosis, and modest leukocytosis without source. Without fever or respiratory symptoms probably does merit only conservative watch and wait approach. Departure - Departure Disposition: 01 Home, Self Care Clinical Impression: Dizziness Hyperglycemia due to type 2 diabetes mellitus Qualifiers: Diabetes mellitus long-term insulin use: without termite treater use Qualified Code(s ): E11.65 - Type 2 diabetes mellitus with hyperglycemia Condition: Good Record reviewed to determine appropriate education?: Yes Instructions: ED Near Syncope Unkn Comments: Follow-up with your doctor tomorrow as scheduled, return if worse or if new symptoms develop.
[2017-01-28 22:11] LABS: BASOPHILS # (AUTO) 0.1 10^3/uL (0.0-0.1); BASOPHILS % (AUTO) 0.8 %; EOSINOPHILS # (AUTO) 0.1 10^3/uL (0.0-0.7); EOSINOPHILS % (AUTO) 0.6 %; HCT - HEMATOCRIT 41.5 % (37.0-47.0); HGB - HEMOGLOBIN 13.8 g/dL (12.0-16.0); LYMPHOCYTES # (AUTO) 4.9 10^3/uL (1.5-3.5); LYMPHOCYTES % (AUTO) 30.2 %; MEAN CORPUSCULAR HEMOGLOBIN 29.2 pg (27.0-31.0); MEAN CORPUSCULAR HGB CONC 33.4 g/dL (32.0-36.0); MEAN CORPUSCULAR VOLUME 87.4 fL (81.0-99.0); MEAN PLATELET VOLUME 7.5 fL (7.9-10.8); MONOCYTES # (AUTO) 0.7 10^3/uL (0.0-1.0); MONOCYTES % (AUTO) 4.6 %; NEUTROPHILS # (AUTO) 10.3 10^3/uL (1.5-6.6); NEUTROPHILS % (AUTO) 63.8 %; RED BLOOD COUNT 4.74 10^6/uL (4.20-5.40); RED CELL DISTRIBUTION WIDTH 14.3 % (12.0-15.0); UNCORRECTED WHITE BLOOD COUNT 16.2 x10^3/uL; WHITE BLOOD COUNT 16.2 x10^3/uL (4.8-10.8)
[2017-01-28 22:25] LABS: ALBUMIN/GLOBULIN RATIO 1.1 (1.0-2.2); BILIRUBIN,TOTAL 0.9 mg/dL (0.2-1.0); CALCIUM 9.7 mg/dL (8.5-10.3); CREATININE 0.8 mg/dL (0.4-1.0); POTASSIUM 4.1 mmol/L (3.5-5.0); TOTAL PROTEIN 7.9 g/dL (6.7-8.2)
[2017-01-28 23:03] VITALS: BP 107/74
[2017-01-28 23:04] LABS: BILIRUBIN,URINE NEGATIVE (NEGATIVE)
[2017-01-28 23:07] LABS: HCG UR QUAL NEGATIVE; UA CHARGE (STRIP ONLY) YES; UR CULTURE IF IND NOT INDICATED
== END 2017-01-28 23:28 | disposition home or self-care (01) ==
LOC: ED 20:47
DX: R42 Dizziness and giddiness (principal); E11.65 Type 2 diabetes mellitus with hyperglycemia; R94.31 Abnormal electrocardiogram [ECG] [EKG]
CPT/HCPCS: 36415; 80053; 81001; 81003; 81025; 83690; 85025; 87086; 93005; 99283

== ENCOUNTER 2017-04-09 16:50 | Outpatient (CLI) | payer OTHER ==
--- NOTE | 2017-04-10 07:36 | XRAY Report ---
EXAM: RIGHT SHOULDER RADIOGRAPHY EXAM DATE: 04/09/2017 05:04 PM. CLINICAL HISTORY: BURSITIS OF RT SHOULDER, ROTATOR CUFF SYNDROME, cervicalgia. COMPARISON: None. TECHNIQUE: 3 views. FINDINGS: Bones: Normal. No fracture or bone lesion. Joints: The glenohumeral and acromioclavicular joints are preserved. Soft tissues: The visualized hemithorax is unremarkable. No soft tissue swelling. IMPRESSION: 1. No significant abnormality seen in the shoulder. [facility] Referring Provider Line: [phone] SITE ID: [id number]
== END 2017-04-09 16:51 | disposition home or self-care (01) ==
LOC: DI 16:50
PROVIDERS: ATTEND Physician Assistant Medical
DX: M75.51 Bursitis of right shoulder (principal)

== ENCOUNTER 2017-04-15 20:20 | Emergency (ER) | payer OTHER ==
[2017-04-15] MEDS ORDERED: PROMETHAZINE INJ 25 MG in SODIUM CHLORIDE 0.9% 50 ML IV STA (20:37)
[2017-04-15] MEDS ORDERED: HYDROmorphone 1 MG/ML SYRINGE IVP STA (20:37)
--- NOTE | 2017-04-15 20:45 | ED Physician Documentation ---
PD HPI ABD PAIN - Stated complaint Stated Complaint: VOMITING - Chief complaint Chief Complaint: Abd Pain - History obtained from History obtained from: Patient - History of Present Illness Timing - onset: Other (36-year-old woman with type 2 diabetes and recurrent abdominal pain and vomiting presents with vomiting of one days duration one episode of bright red blood per rectum today associated with left-sided abdominal pain. This is happened every couple of months for the last year or so. She tried Zofran and pantoprazole at home which were not effective. No associated fever. Slim possibility of .) Review of Systems Constitutional: reports: Sweats, Reviewed and negative Cardiac: denies: Chest pain / pressure, Palpitations Respiratory: denies: Dyspnea, Cough GI: reports: Abdominal Pain, Nausea, Vomiting, Diarrhea, Bloody / black stool PD PAST MEDICAL HISTORY - Past Medical History Cardiovascular: High cholesterol Neuro: Headache/migraine Endocrine/Autoimmune: Type 2 diabetes GI: GERD - Past Surgical History Past Surgical History: Yes Ortho: Knee replacement, Shoulder arthroplasty HEENT: Tonsil/Adenoidectomy - Present Medications Home Medications: Ambulatory Orders Medication Instructions Recorded Confirmed Atorvastatin Calcium 20 mg PO DAILY 01/14/17 01/21/17 Metformin HCl [Metformin HCl ER] 500 mg PO DAILY 01/15/17 01/21/17 Montelukast [Singulair] 10 mg PO QPM PRN 01/15/17 01/21/17 cefUROXime axetil [Ceftin] 500 mg PO Q12H #14 tablet 01/18/17 01/21/17 Ciprofloxacin HCl [Cipro] 500 mg PO BID #10 tablet 04/15/17 Promethazine [Phenergan] 25 - 50 mg PO Q6H PRN #15 tab 04/15/17 - Allergies Allergies/Adverse Reactions: Allergies Allergy/AdvReac Type Severity Reaction Status Date / Time acetaminophen [From Vicodin] Allergy Dizziness Verified 04/15/17 22:52 doxycycline Allergy Unknown Verified 04/15/17 20:25 hydrocodone [From Vicodin] Allergy Dizziness Verified 04/15/17 22:52 morphine Allergy Hallucinati Verified 04/15/17 20:25 ons - Social History Does the pt smoke?: No Smoking Status: Never smoker Does the pt drink ETOH?: No Does the pt have substance abuse?: No - Immunizations Immunizations are current?: Yes - POLST Patient has POLST: No PD ED PE NORMAL - Vitals Vital signs reviewed: Yes - General General: Alert and oriented X 3, No acute distress - HEENT HEENT: PERRL, EOMI - Neck Neck: Supple, no meningeal sign, No bony TTP - Cardiac Cardiac: RRR, No murmur - Respiratory Respiratory: No respiratory distress, Clear bilaterally - Abdomen Abdomen: Normal bowel sounds, Soft, Other (Mild left mid abd TTP without srgical signs.) - Rectal Rectal: Other (external only, small non thrombosed hemorrhoid without sequalae of recent bleeding. Done with Secoo) - Back Back: No CVA TTP, No spinal TTP - Derm Derm: Normal color, Warm and dry - Extremities Extremities: No deformity, No tenderness to palpate, No edema, No calf tenderness / cord - Neuro Neuro: Alert and oriented X 3 Eye Opening: Spontaneous Motor: Obeys Commands Verbal: Oriented GCS Score: 15 - Psych Psych: Normal mood, Normal affect Results - Vitals Vitals: Vital Signs - 24 hr 04/15/17 04/15/17 20:23 21:32 Temperature 35.8 C L 36.9 C Heart Rate 97 87 Respiratory 18 16 Rate Blood Pressure 148/95 H 123/82 H O2 Saturation 96 95 Oxygen O2 Source Room air - Labs Labs: Laboratory Tests 04/15/17 04/15/17 04/15/17 20:49 20:49 20:49 WBC 16.2 H RBC 4.78 Hgb 14.3 Hct 41.9 MCV 87.7 MCH 29.9 MCHC 34.2 RDW 14.3 Plt Count 481 H MPV 7.3 L Neut # 11.4 H Lymph # 3.7 H [place] # 0.7 Eos # 0.2 Baso # 0.2 H Absolute Nucleated RBC 0.01 Nucleated RBC % 0.1 Sodium 137 Potassium 3.4 L Chloride 99 L Carbon Dioxide 24 Anion Gap 14.0 H BUN 12 Creatinine 0.7 Estimated GFR (MDRD) 95 Glucose 151 H Calcium 9.7 Total Bilirubin 0.8 AST 24 ALT 27 Alkaline Phosphatase 94 Total Protein 8.4 H Albumin 4.3 Globulin 4.1 Albumin/Globulin Ratio 1.0 Lipase 36 Serum HCG, Qual NEGATIVE Urine Color Urine Clarity Urine pH Ur Specific [place] Urine Protein Urine Glucose (UA) Urine Ketones Urine Occult Blood Urine Nitrite Urine Bilirubin Urine Urobilinogen Ur Leukocyte Esterase Urine RBC Urine WBC Ur Squamous Epith Cells Urine Bacteria Ur Microscopic Review Urine Culture Comments Urine HCG, Qual 04/15/17 21:34 WBC RBC Hgb Hct MCV MCH MCHC RDW Plt Count MPV Neut # Lymph # [place] # Eos # Baso # Absolute Nucleated RBC Nucleated RBC % Sodium Potassium Chloride Carbon Dioxide Anion Gap BUN Creatinine Estimated GFR (MDRD) Glucose Calcium Total Bilirubin AST ALT Alkaline Phosphatase Total Protein Albumin Globulin Albumin/Globulin Ratio Lipase Serum HCG, Qual Urine Color YELLOW Urine Clarity CLEAR Urine pH 6.0 Ur Specific [place] >=1.030 H Urine Protein NEGATIVE Urine Glucose (UA) NEGATIVE Urine Ketones 15 H Urine Occult Blood TRACE-INTA Urine Nitrite NEGATIVE Urine Bilirubin NEGATIVE Urine Urobilinogen 0.2 (NORMAL) Ur Leukocyte Esterase TRACE H Urine RBC 0-5 Urine WBC 6-10 H Ur Squamous Epith Cells MOD Squamous H Urine Bacteria Few Ur Microscopic Review INDICATED Urine Culture Comments NOT INDICATED Urine HCG, Qual NEGATIVE - Rads (name of study) CT A/P Radiology: EMP read contemporaneously (NAD) PD MEDICAL DECISION MAKING - ED course ED course: 36-year-old woman with diabetes has an episodic illness where she develops abdominal pain in vomiting. This time was associated with hematochezia which is new but no active bleeding in the department and reassuring H&H. She has an elevated white blood cell count, but review of her previous labs shows that she almost always does. She is a contaminated but slightly positive urinalysis, CT is negative for acute processes, noting that prior CTs commented on gallstones but this one does not. She was very concerned about the gallstones and on further history she has been having intermittent attacks of right upper quadrant pain after eating, but they are few and far between and this is not what is going on tonight as her pain is on the left side. She felt much better after medications here and remained nontender after reevaluation. She was given Phenergan to go home with and Cipro here for mildly positive urinalysis given the clinical findings. Departure - Departure Disposition: 01 Home, Self Care Clinical Impression: Abdominal pain Qualifiers: Abdominal location: left lower quadrant Qualified Code(s): R10.32 - Left lower quadrant pain Vomiting Qualifiers: Vomiting type: unspecified Vomiting Intractability: non-intractable Nausea presence: with nausea Qualified Code(s): R11.2 - Nausea with vomiting, unspecified Condition: Good Record reviewed to determine appropriate education?: Yes Instructions: Abdominal Pain Prescriptions: Ciprofloxacin HCl [Cipro] 500 mg PO BID #10 tablet Promethazine [Phenergan] 25 - 50 mg PO Q6H PRN #15 tab PRN Reason: Nausea / Vomiting Comments: Return if worse or if not better in 24 hours, return especially if you are vomiting despite medications, if the pain is more severe, or if he develop a fever. Follow-up with your doctor and discuss a surgical referral for potentially upper and lower endoscopies and/or evaluation for cholecystectomy.
[2017-04-15 20:56] LABS: BASOPHILS # (AUTO) 0.2 10^3/uL (0.0-0.1); EOSINOPHILS # (AUTO) 0.2 10^3/uL (0.0-0.7); HCT - HEMATOCRIT 41.9 % (37.0-47.0); HGB - HEMOGLOBIN 14.3 g/dL (12.0-16.0); LYMPHOCYTES # (AUTO) 3.7 10^3/uL (1.5-3.5); LYMPHOCYTES % (AUTO) 23.1 %; MEAN CORPUSCULAR HEMOGLOBIN 29.9 pg (27.0-31.0); MEAN CORPUSCULAR HGB CONC 34.2 g/dL (32.0-36.0); MEAN CORPUSCULAR VOLUME 87.7 fL (81.0-99.0); MEAN PLATELET VOLUME 7.3 fL (7.9-10.8); MONOCYTES # (AUTO) 0.7 10^3/uL (0.0-1.0); MONOCYTES % (AUTO) 4.3 %; NEUTROPHILS # (AUTO) 11.4 10^3/uL (1.5-6.6); NEUTROPHILS % (AUTO) 70.6 %; NUCLEATED RED BLOOD CELLS AUTO 0.1 /100WBC; RED BLOOD COUNT 4.78 10^6/uL (4.20-5.40); RED CELL DISTRIBUTION WIDTH 14.3 % (12.0-15.0); UNCORRECTED WHITE BLOOD COUNT 16.2 x10^3/uL; WHITE BLOOD COUNT 16.2 x10^3/uL (4.8-10.8)
[2017-04-15] MEDS ORDERED: HYDROmorphone 1 MG/ML SYRINGE ONE (20:58)
[2017-04-15] MEDS ORDERED: PROMETHAZINE 25 MG/1 ML VIAL ONE (20:58)
[2017-04-15 21:09] LABS: BILIRUBIN,TOTAL 0.8 mg/dL (0.2-1.0); CALCIUM 9.7 mg/dL (8.5-10.3); CREATININE 0.7 mg/dL (0.4-1.0); POTASSIUM 3.4 mmol/L (3.5-5.0); TOTAL PROTEIN 8.4 g/dL (6.7-8.2)
[2017-04-15] MEDS ORDERED: IOPAMIDOL-300 100 ML VIAL ONE (21:26)
[2017-04-15] MEDS ORDERED: IOPAMIDOL-300 100 ML VIAL IVP ONE (22:02)
[2017-04-15 22:08] LABS: BILIRUBIN,URINE NEGATIVE (NEGATIVE); HCG UR QUAL NEGATIVE; UA w/ MICROSCOPIC CHARGE YES
[2017-04-15 22:09] LABS: UR CULTURE IF IND NOT INDICATED
--- NOTE | 2017-04-15 22:26 | CT Preliminary Report ---
Exam: CT ABDOMEN/PELVIS W/ IMPRESSION: 1. No acute inflammatory or obstructive process seen in the abdomen or pelvis. 2. Fatty liver. [facility] SITE ID: [id number]
[2017-04-15] MEDS ORDERED: PROMETHAZINE 25 MG TABLET PO STA (22:34)
[2017-04-15] MEDS ORDERED: HYDROcod/ACET 5/325 Prepack 6 PO STA (22:34)
--- NOTE | 2017-04-15 22:34 | CT Report ---
EXAM: CT ABDOMEN AND PELVIS EXAM DATE: 04/15/2017 10:07 PM. CLINICAL HISTORY: Left abdominal pain, hematochezia. COMPARISONS: 01/14/2017. TECHNIQUE: Routine helical CT imaging was performed through the abdomen and pelvis. IV contrast: Yes . Enteric contrast: No . Reconstructions: Coronal and sagittal. In accordance with CT protocol optimization, one or more of the following dose reduction techniques w ere utilized for this exam: automated exposure control, adjustment of mA and/or KV based on patient s ize, or use of iterative reconstructive technique. FINDINGS: Lung Bases: Unremarkable. Liver: Fatty. No suspicious masses. Gallbladder/Bile Ducts: Unremarkable. Spleen: Unremarkable. Pancreas: Unremarkable. Adrenal Glands: Unremarkable. Kidneys: Interval scarring of the previous left focal pyelonephritis. No suspicious masses or hydrone phrosis. Peritoneal Cavity/Bowel: No bowel obstruction or inflammatory process seen. No free air or significan t free fluid. No masses or adenopathy. The appendix is normal. No excessive stool burden. Pelvic Organs: Bladder, uterus, and adnexa appear unremarkable. Vasculature: No aneurysms or other significant abnormality. Bones: No significant abnormality. Other: None. IMPRESSION: 1. No acute inflammatory or obstructive process seen in the abdomen or pelvis. 2. Fatty liver. [facility] Referring Provider Line: [phone] SITE ID: [id number]
[2017-04-15] MEDS ORDERED: CIPROFLOXACIN 250 MG TABLET PO STA (22:37)
[2017-04-15] MEDS ORDERED: PROMETHAZINE 25 MG TABLET ONE (22:47)
[2017-04-15] MEDS ORDERED: HYDROcod/ACET 5/325 Prepack 6 PO ONE (22:49)
[2017-04-15] MEDS ORDERED: oxyCODONE/ACET 5/325 Prepack 4 PO STA (22:50)
[2017-04-15] MEDS ORDERED: CIPROFLOXACIN 250 MG TABLET PO ONE (22:51)
[2017-04-15] MEDS ORDERED: oxyCODONE/ACET 5/325 Prepack 4 PO ONE (23:00)
[2017-04-15 23:02] VITALS: BP 120/76
== END 2017-04-15 23:00 | disposition home or self-care (01) ==
LOC: ED 20:20
DX: R10.32 Left lower quadrant pain (principal); R11.2 Nausea with vomiting, unspecified; E11.9 Type 2 diabetes mellitus without complications; Z79.84 Long term (current) use of oral hypoglycemic drugs; E78.00 Pure hypercholesterolemia, unspecified; Z96.659 Presence of unspecified artificial knee joint
CPT/HCPCS: 36415; 74177; 80053; 81001; 81025; 83690; 84703; 85025; 96365; 96375; 99284; A9270; J1170; J7040; Q0169; Q9967; 81003; 87086

== ENCOUNTER 2017-04-24 15:36 | Outpatient (CLI) | payer OTHER | END 2017-04-24 15:37 | disposition home or self-care (01) | LOC: LAB.R 15:36 | PROVIDERS: ATTEND Physician Assistant Medical | DX: R30.0 Dysuria (principal) | CPT/HCPCS: 87086 ==

== ENCOUNTER 2017-04-24 18:44 | Outpatient (CLI) | payer OTHER ==
--- NOTE | 2017-04-25 09:37 | Ultrasound Report ---
RIGHT UPPER QUADRANT ULTRASOUND: 04/24/2017 COMPARISON: None. INDICATION: Nausea and vomiting. Cholelithiasis. TECHNIQUE: Sonographic evaluation of the right upper quadrant was performed. FINDINGS: The liver is mildly and diffusely echogenic. Normal in contour without evidence of masses. Portal venous flow is directed toward the liver. There is no ascites. The gallbladder appears unremarkable without evidence of gallstones, wall thickening, or surrounding fluid. The common duct measures 3 mm. The right kidney measures 12.1 cm. IMPRESSION: MILD HEPATIC STEATOSIS. NEGATIVE GALLBLADDER EVALUATION. JOB #: [id number] EXT JOB #: [id number] [place]
== END 2017-04-24 18:45 | disposition home or self-care (01) ==
LOC: DI 18:44
PROVIDERS: ATTEND Physician Assistant Medical
DX: K76.0 Fatty (change of) liver, not elsewhere classified (principal); R30.0 Dysuria
CPT/HCPCS: 76705; 87086

== ENCOUNTER 2017-07-18 16:47 | Outpatient (CLI) | payer OTHER | END 2017-07-18 16:48 | disposition home or self-care (01) | LOC: LAB.R 16:47 | PROVIDERS: ATTEND Obstetrics & Gynecology | DX: Z01.419 Encounter for gynecological examination (general) (routine) without abnormal findings (principal); Z11.3 Encounter for screening for infections with a predominantly sexual mode of transmission; E11.65 Type 2 diabetes mellitus with hyperglycemia; Z31.69 Encounter for other general counseling and advice on procreation | CPT/HCPCS: 87491; 87591 ==

== ENCOUNTER 2017-07-18 16:54 | Outpatient (CLI) | payer OTHER ==
[2017-07-18 17:23] LABS: HB2 TOTAL 13.9 g/dL; HEMOGLOBIN A1C 0.79 g/dL; HEMOGLOBIN A1C % 7.4 % (4.6-6.2)
== END 2017-07-18 16:55 | disposition home or self-care (01) ==
LOC: LAB 16:54
PROVIDERS: ATTEND Obstetrics & Gynecology
DX: Z01.419 Encounter for gynecological examination (general) (routine) without abnormal findings (principal); Z11.3 Encounter for screening for infections with a predominantly sexual mode of transmission; E11.65 Type 2 diabetes mellitus with hyperglycemia; Z31.69 Encounter for other general counseling and advice on procreation
CPT/HCPCS: 83036; 86762; 87491; 87591

== ENCOUNTER 2017-09-21 09:30 | Outpatient (CLI) | payer OTHER ==
[2017-09-21 09:47] LABS: BASOPHILS # (AUTO) 0.1 10^3/uL (0.0-0.1); BASOPHILS % (AUTO) 0.6 %; EOSINOPHILS # (AUTO) 0.2 10^3/uL (0.0-0.7); EOSINOPHILS % (AUTO) 1.9 %; HGB - HEMOGLOBIN 13.5 g/dL (12.0-16.0); LYMPHOCYTES # (AUTO) 3.6 10^3/uL (1.5-3.5); LYMPHOCYTES % (AUTO) 29.4 %; MEAN CORPUSCULAR HEMOGLOBIN 29.4 pg (27.0-31.0); MEAN CORPUSCULAR HGB CONC 33.8 g/dL (32.0-36.0); MEAN CORPUSCULAR VOLUME 87.1 fL (81.0-99.0); MONOCYTES # (AUTO) 0.4 10^3/uL (0.0-1.0); MONOCYTES % (AUTO) 3.5 %; NEUTROPHILS # (AUTO) 7.9 10^3/uL (1.5-6.6); NEUTROPHILS % (AUTO) 64.6 %; PLT - PLATELET COUNT 423 10^3/uL (130-450); RED BLOOD COUNT 4.58 10^6/uL (4.20-5.40); WHITE BLOOD COUNT 12.2 x10^3/uL (4.8-10.8)
[2017-09-21 10:06] LABS: ALBUMIN 4.1 g/dL (3.2-5.5); ALBUMIN/GLOBULIN RATIO 1.1 (1.0-2.2); ALKALINE PHOSPHATASE 105 IU/L (42-121); ALT ALANINE AMINOTRANSFERASE 17 IU/L (10-60); AST ASPARTATE AMINOTRANSFERASE 17 IU/L (10-42); BILIRUBIN,TOTAL 0.8 mg/dL (0.2-1.0); BUN - BLOOD UREA NITROGEN 13 mg/dL (6-20); CALCIUM 9.2 mg/dL (8.5-10.3); CARBON DIOXIDE - CO2 24 mmol/L (21-32); CHLORIDE 101 mmol/L (101-111); CHOL/HDL RATIO 3.8 (<4.4); CHOLESTEROL 155 mg/dL; CREATININE 0.5 mg/dL (0.4-1.0); GFR - MDRD 140 (>89); GLUCOSE 142 mg/dL (70-100); HDL CHOLESTEROL 41 mg/dL; LDL CHOLESTEROL,CALCULATED 72 mg/dL; LDL/HDL RATIO 1.8 (<4.4); SODIUM 136 mmol/L (135-145); TOTAL PROTEIN 7.7 g/dL (6.7-8.2); VLDL CHOLESTEROL 42 mg/dL
== END 2017-09-21 09:31 | disposition home or self-care (01) ==
LOC: LAB 09:30
PROVIDERS: ATTEND Physician Assistant
DX: Z00.00 Encounter for general adult medical examination without abnormal findings (principal); E11.65 Type 2 diabetes mellitus with hyperglycemia
CPT/HCPCS: 36415; 80053; 80061; 83721; 84443; 85025

== ENCOUNTER 2017-10-01 05:58 | Emergency (ER) | payer OTHER ==
[2017-10-01 06:29] LABS: BILIRUBIN,URINE NEGATIVE (NEGATIVE); GLUCOSE, URINE (UA) NEGATIVE (NEGATIVE); KETONES,URINE (UA) NEGATIVE (NEGATIVE); LEUKOCYTE ESTERASE, URINE NEGATIVE (NEGATIVE); NITRITE,URINE NEGATIVE (NEGATIVE); OCCULT BLOOD,URINE NEGATIVE (NEGATIVE); PH,URINE 5.5 PH (5.0-7.5); PROTEIN,URINE NEGATIVE (NEGATIVE); UROBILINOGEN,URINE 0.2 (NORMAL) E.U./dL (NORMAL)
[2017-10-01 06:31] LABS: CLARITY,URINE CLEAR (CLEAR); HCG UR QUAL NEGATIVE
[2017-10-01] MEDS: SODIUM CHLORIDE 0.9% 1,000 ML IV ONE (06:40)
--- NOTE | 2017-10-01 07:54 | ED Physician Documentation ---
History of Present Illness - Stated complaint Stated Complaint: HEADACHE - Chief complaint Chief Complaint: Neuro - Additonal information Additional information: hx from pt 36 f hx migraines since age 18 no migraine meds at home at this time states imitrex causes vomiting she has a PMD who has ordered a MRI which is pending authorization to ED with [facility] same location as prior migraines (L periorbital) but her migraines are usually sharp and pinding and this is more "clawing" photophobia, nausea no fever no trauma no CO exposure numb behind ears and generally weak all over denies preg LMP 09/12 (not 08/12 as in [facility]) Review of Systems Constitutional: denies: Fever, Chills GI: reports: Nausea, Vomiting : denies: Now EGA Musculoskeletal: denies: Neck pain Neurologic: reports: Generalized weakness, Headache. denies: Head injury Immunocompromised: denies: Immunocompromised PD PAST MEDICAL HISTORY - Past Medical History Past Medical History: Yes Cardiovascular: High cholesterol, Other Endocrine/Autoimmune: Type 2 diabetes GI: GERD, Chronic diarrhea - Past Surgical History Past Surgical History: Yes Ortho: Knee replacement, Shoulder arthroplasty HEENT: Tonsil/Adenoidectomy - Present Medications Home Medications: Ambulatory Orders Medication Instructions Recorded Confirmed Atorvastatin Calcium 40 mg PO DAILY 01/14/17 06/18/17 Metformin HCl [Metformin HCl ER] 1,000 mg PO DAILY 01/15/17 06/18/17 Insulin Glargine [Lantus Solostar] 10 unit SQ DAILY 06/18/17 06/18/17 Insulin Glulisine [Apidra Solostar] 2 - 4 unit SQ TIDWM 06/18/17 06/18/17 Olopatadine HCl [Pataday] 2.5 ml OP DAILY 06/18/17 06/18/17 Ranitidine HCl [Acid Control] 150 mg PO DAILY 06/18/17 06/18/17 SITagliptin [Januvia] 100 mg PO DAILY 06/18/17 06/18/17 Ibuprofen [Motrin] 400 mg PO Q6H PRN #30 tablet 10/01/17 Ondansetron Odt [Zofran] 4 mg TL Q6H PRN #10 tablet 10/01/17 - Allergies Allergies/Adverse Reactions: Allergies Allergy/AdvReac Type Severity Reaction Status Date / Time doxycycline Allergy Severe edema, rash Verified 10/01/17 06:14 acetaminophen [From Vicodin] Allergy Dizziness Verified 10/01/17 06:14 hydrocodone [From Vicodin] Allergy Dizziness Verified 10/01/17 06:14 morphine Allergy Hallucinati Verified 10/01/17 06:14 ons - Social History Does the pt smoke?: No Smoking Status: Never smoker Does the pt drink ETOH?: No Does the pt have substance abuse?: No - Immunizations Immunizations are current?: Yes - POLST Patient has POLST: No PD ED PE NORMAL - Vitals Vital signs reviewed: Yes - HEENT HEENT: PERRL, EOMI, Other (globes soft, no TA TTP) - Neck Neck: Supple, no meningeal sign - Cardiac Cardiac: RRR - Respiratory Respiratory: No respiratory distress, Clear bilaterally - Abdomen Abdomen: Soft, Non tender - Derm Derm: Normal color - Neuro Neuro: Alert and oriented X 3, capacity management specialist 2-12 intact, No motor deficit, No sensory deficit, Normal speech Eye Opening: Spontaneous Motor: Obeys Commands Verbal: Oriented GCS Score: 15 Results - Vitals Vitals: Vital Signs - 24 hr 10/01/17 06:00 Temperature 36.2 C L Heart Rate 100 Respiratory 17 Rate Blood Pressure 156/97 H O2 Saturation 98 Oxygen O2 Source Room air - Labs Labs: Laboratory Tests 10/01/17 06:10 Urine Color YELLOW Urine Clarity CLEAR Urine pH 5.5 Ur Specific [place] >=1.030 H Urine Protein NEGATIVE Urine Glucose (UA) NEGATIVE Urine Ketones NEGATIVE Urine Occult Blood NEGATIVE Urine Nitrite NEGATIVE Urine Bilirubin NEGATIVE Urine Urobilinogen 0.2 (NORMAL) Ur Leukocyte Esterase NEGATIVE Ur Microscopic Review NOT INDICATED Urine Culture Comments NOT INDICATED Urine HCG, Qual NEGATIVE PD MEDICAL DECISION MAKING - ED course ED course: not better with toradol and zofran will give ofirmev (not allergic to tylenol just doesnt tolerate vicodin) compazine benadryl - pt advised she will need a ride home which she states she can do felt better Departure - Departure Disposition: 01 Home, Self Care Clinical Impression: Migraine Qualifiers: Migraine type: unspecified Status migrainosus presence: without status migrainosus Intractability: not intractable Qualified Code(s): G43.909 - Migraine, unspecified, not intractable, without status migrainosus Condition: Good Instructions: ED Headache Migraine Follow-Up: Holiday,Sarah M, PA [Primary Care Provider] - Prescriptions: Ibuprofen [Motrin] 400 mg PO Q6H PRN #30 tablet PRN Reason: Pain Ondansetron Odt [Zofran] 4 mg TL Q6H PRN #10 tablet PRN Reason: Nausea / Vomiting Comments: For the rest of today please rest and drink plenty of fluids. May take motrin for any residual pain and zofran if needed for vomiting. No driving today Please follow up with your PMD. If you suffer from severe or frequent migraines, you should be on 1) medication to prevent migraines 2) medication to abort a migraine when you first feel it starting 3) medication you can take for pain at home if the migraine develops despite steps 1 and 2 Forms: Activity restrictions
[2017-10-01] MEDS: ONDANSETRON 4 MG/2 ML VIAL IVP STA (08:04)
[2017-10-01] MEDS: KETOROLAC 60 MG/2 ML VIAL IVP STA (08:04)
[2017-10-01] MEDS: diphenhydrAMINE INJ 50 MG/ML VIAL IVP STA (08:56)
[2017-10-01] MEDS: PROCHLORPERAZINE 10 MG/2 ML VIAL IVP STA (08:57)
[2017-10-01] MEDS: ACETAMINOPHEN 1,000 MG/100 ML 100 ML IV STA (08:57)
[2017-10-01 09:48] VITALS: BP 142/84
== END 2017-10-01 09:45 | disposition home or self-care (01) ==
LOC: ED 05:58
DX: G43.909 Migraine, unspecified, not intractable, without status migrainosus (principal); E11.9 Type 2 diabetes mellitus without complications; Z79.4 Long term (current) use of insulin; K21.9 Gastro-esophageal reflux disease without esophagitis; E78.00 Pure hypercholesterolemia, unspecified
CPT/HCPCS: 81001; 81003; 81025; 87086; 96361; 96365; 96375; 99283; 99284

== ENCOUNTER 2017-11-23 12:43 | Outpatient (CLI) | payer OTHER ==
[2017-11-23 14:14] LABS: HEMOGLOBIN A1C 0.59 g/dL
== END 2017-11-23 12:44 | disposition home or self-care (01) ==
LOC: LAB 12:43
PROVIDERS: ATTEND Physician Assistant
DX: E11.8 Type 2 diabetes mellitus with unspecified complications (principal)
CPT/HCPCS: 36415; 83036

== ENCOUNTER 2018-01-16 07:22 | Observation (INO) | payer OTHER ==
[2018-01-16] MEDS ORDERED: SODIUM CHLORIDE 0.9% 1,000 ML IV ONE (07:51)
[2018-01-16] MEDS ORDERED: DEXTROSE 50% ABBOJECT 25 GM/50 ML SYRINGE IVP STA ×2 (07:54→09:31)
[2018-01-16 07:57] LABS: BILIRUBIN,URINE NEGATIVE (NEGATIVE); GLUCOSE, URINE (UA) NEGATIVE (NEGATIVE); KETONES,URINE (UA) NEGATIVE (NEGATIVE); LEUKOCYTE ESTERASE, URINE NEGATIVE (NEGATIVE); NITRITE,URINE NEGATIVE (NEGATIVE); OCCULT BLOOD,URINE TRACE-INTA (NEGATIVE); PROTEIN,URINE NEGATIVE (NEGATIVE); UROBILINOGEN,URINE 0.2 (NORMAL) E.U./dL (NORMAL)
--- NOTE | 2018-01-16 07:57 | ED Physician Documentation ---
History of Present Illness - Stated complaint Stated Complaint: LIGHTHEADED/SHAKING - Chief complaint Chief Complaint: General - History obtained from History obtained from: Patient - History of Present Illness Timing: How many hours ago (5) - Additonal information Additional information: The patient is a 37-year-old female who presents complaining of lightheadedness and shakiness. Her symptoms started about 4 AM. She reports associated nausea , with one episode of vomiting. She denies fever, chest pain, shortness of breath, or abdominal pain. She denies fever, dysuria, or change in her stool color. She does report frontal headache. Her last menstrual period was 4 weeks ago. She denies history of similar symptoms in the past. Past medical history is significant for migraine headaches and for type 2 diabetes for which she takes insulin and metformin. Review of Systems Constitutional: reports: Sweats. denies: Fever Eyes: denies: Decreased vision Ears: denies: Tinnitus/ringing Nose: denies: Congestion Throat: denies: Sore throat Cardiac: denies: Chest pain / pressure, Palpitations Respiratory: denies: Dyspnea, Cough GI: reports: Nausea, Vomiting. denies: Abdominal Pain, Diarrhea : denies: Dysuria Skin: denies: Rash Musculoskeletal: denies: Back pain, Extremity pain Neurologic: reports: Headache (mild, frontal headache). denies: Focal weakness , Numbness PD PAST MEDICAL HISTORY - Past Medical History Cardiovascular: High cholesterol, Other Endocrine/Autoimmune: Type 2 diabetes GI: GERD, Chronic diarrhea - Past Surgical History Past Surgical History: Yes Ortho: Knee replacement, Shoulder arthroplasty HEENT: Tonsil/Adenoidectomy - Present Medications Home Medications: Ambulatory Orders Medication Instructions Recorded Confirmed Atorvastatin Calcium 40 mg PO QPM 01/14/17 01/16/18 Metformin HCl [Metformin HCl ER] 1,000 mg PO DAILY 01/15/17 01/16/18 Insulin Glargine [Lantus Solostar] 20 unit SQ QPM 06/18/17 01/16/18 Insulin Glulisine [Apidra Solostar] 2 - 4 unit SQ TIDWM 06/18/17 01/16/18 SITagliptin [Januvia] 100 mg PO DAILY 06/18/17 01/16/18 Liraglutide [Victoza 2-Petar] 1.6 mg SUBQ QPM 01/16/18 01/16/18 Propranolol HCl [Propranolol HCl 80 mg PO DAILY 01/16/18 01/16/18 ER] - Allergies Allergies/Adverse Reactions: Allergies Allergy/AdvReac Type Severity Reaction Status Date / Time doxycycline Allergy Severe edema, rash Verified 10/01/17 06:14 acetaminophen [From Vicodin] Allergy Dizziness Verified 10/01/17 06:14 hydrocodone [From Vicodin] Allergy Dizziness Verified 10/01/17 06:14 morphine Allergy Hallucinati Verified 10/01/17 06:14 ons - Social History Does the pt smoke?: No Smoking Status: Never smoker Does the pt drink ETOH?: No Does the pt have substance abuse?: No - Immunizations Immunizations are current?: Yes - POLST Patient has POLST: No PD ED PE NORMAL - Vitals Vital signs reviewed: Yes (normal) - General General: Alert and oriented X 3, Well developed/nourished, Other (Appears pale and distressed.) - HEENT HEENT: Atraumatic, PERRL, EOMI, Moist mucous membranes - Neck Neck: Supple, no meningeal sign, No adenopathy, No JVD - Cardiac Cardiac: RRR, No murmur - Respiratory Respiratory: No respiratory distress, Clear bilaterally - Abdomen Abdomen: Soft, Non tender - Back Back: No CVA TTP - Derm Derm: No rash - Extremities Extremities: No edema, No calf tenderness / cord - Neuro Neuro: Alert and oriented X 3, No motor deficit, No sensory deficit Results - Vitals Vitals: Vital Signs - 24 hr 01/16/18 01/16/18 07:31 08:20 Temperature 36.4 C L Heart Rate 66 53 L Respiratory 16 14 Rate Blood Pressure 130/71 104/57 L O2 Saturation 100 96 Oxygen O2 Source Room air - EKG (time done) 08:13 Rate: Rate (enter#) (52) Rhythm: Sinus bradycardia [place]: Normal Intervals: Normal CT QRS: Normal Ischemia: Normal ST segments Computer interpretation: Agree with computer - Labs Labs: Laboratory Tests 01/16/18 01/16/18 01/16/18 07:40 07:40 08:15 WBC 14.5 H RBC 4.22 Hgb 12.4 Hct 37.2 MCV 88.1 MCH 29.4 MCHC 33.3 RDW 14.1 Plt Count 409 MPV 7.5 L Neut # (Auto) 12.1 H Lymph # (Auto) 1.7 [place] # (Auto) 0.6 Eos # (Auto) 0.0 Baso # (Auto) 0.1 Absolute Nucleated RBC 0.01 Nucleated RBC % 0.0 Sodium Potassium Chloride Carbon Dioxide Anion Gap BUN Creatinine Estimated GFR (MDRD) Glucose Glycated Hemoglobin Estim Average Glucose Calcium Total Bilirubin AST ALT Alkaline Phosphatase Total Protein Albumin Globulin Albumin/Globulin Ratio Lipase Urine Color YELLOW Urine Clarity CLEAR Urine pH 6.0 Ur Specific [place] 1.025 1.025 Urine Protein NEGATIVE Urine Glucose (UA) NEGATIVE Urine Ketones NEGATIVE Urine Occult Blood TRACE-INTA Urine Nitrite NEGATIVE Urine Bilirubin NEGATIVE Urine Urobilinogen 0.2 (NORMAL) Ur Leukocyte Esterase NEGATIVE Ur Microscopic Review NOT INDICATED Urine Culture Comments NOT INDICATED Urine HCG, Qual NEGATIVE 01/16/18 01/16/18 08:15 08:15 WBC RBC Hgb Hct MCV MCH MCHC RDW Plt Count MPV Neut # (Auto) Lymph # (Auto) [place] # (Auto) Eos # (Auto) Baso # (Auto) Absolute Nucleated RBC Nucleated RBC % Sodium 134 L Potassium 3.0 L Chloride 105 Carbon Dioxide 22 Anion Gap 7.0 BUN 11 Creatinine 0.6 Estimated GFR (MDRD) 112 Glucose 251 H Glycated Hemoglobin 6.0 Estim Average Glucose 126 H Calcium 8.7 Total Bilirubin 1.0 AST 18 ALT 13 Alkaline Phosphatase 85 Total Protein 7.2 Albumin 3.7 Globulin 3.5 Albumin/Globulin Ratio 1.1 Lipase 39 Urine Color Urine Clarity Urine pH Ur Specific [place] Urine Protein Urine Glucose (UA) Urine Ketones Urine Occult Blood Urine Nitrite Urine Bilirubin Urine Urobilinogen Ur Leukocyte Esterase Ur Microscopic Review Urine Culture Comments Urine HCG, Qual PD MEDICAL DECISION MAKING - ED course Complexity details: reviewed old records, reviewed results, re-evaluated patient , considered differential, d/w patient, d/w customer care consultant ED course: The patient's presentation is significant for symptomatic hypoglycemia in a type II diabetic. She denies any recent change in her medication, having been put on insulin 3 months ago. Her last metformin was yesterday morning, and her last insulin was last night. There is no clinical evidence to suggest infectious process, with clear breath sounds, no respiratory symptoms, and negative urinalysis. Her initial fingerstick blood sugar in the emergency department was 60. An amp of D50 was administered IV, along with 1 L normal saline IV. Her symptoms improved with this treatment and post treatment blood sugar was 215, but within 1 hour she became symptomatic with bradycardia of 38, and diaphoresis. Repeat fingerstick blood sugar at that time revealed recurrent hypoglycemia at 53. A second amp of D50 was administered IV, and oral juice and peanut butter was administered. With this treatment she felt subjectively improved, and her heart rate improved to 80. I discussed her condition with Dr. Hernandez, who accepts her for further evaluation and treatment. - Sepsis Event Vital Signs: Vital Signs - 24 hr 01/16/18 01/16/18 07:31 08:20 Temperature 36.4 C L Heart Rate 66 53 L Respiratory 16 14 Rate Blood Pressure 130/71 104/57 L O2 Saturation 100 96 Oxygen O2 Source Room air Departure - Departure Disposition: ED Place in Observation Clinical Impression: Hypoglycemia associated with type 2 diabetes mellitus, Hypokalemia Condition: Stable Discharge Date/Time: 01/16/18 11:17
[2018-01-16 08:00] LABS: CLARITY,URINE CLEAR (CLEAR); HCG UR QUAL NEGATIVE
[2018-01-16 08:26] LABS: BASOPHILS # (AUTO) 0.1 10^3/uL (0.0-0.1); BASOPHILS % (AUTO) 0.4 %; EOSINOPHILS % (AUTO) 0.2 %; HGB - HEMOGLOBIN 12.4 g/dL (12.0-16.0); LYMPHOCYTES # (AUTO) 1.7 10^3/uL (1.5-3.5); LYMPHOCYTES % (AUTO) 11.8 %; MEAN CORPUSCULAR HEMOGLOBIN 29.4 pg (27.0-31.0); MEAN CORPUSCULAR HGB CONC 33.3 g/dL (32.0-36.0); MEAN CORPUSCULAR VOLUME 88.1 fL (81.0-99.0); MEAN PLATELET VOLUME 7.5 fL (7.9-10.8); MONOCYTES # (AUTO) 0.6 10^3/uL (0.0-1.0); MONOCYTES % (AUTO) 4.2 %; NEUTROPHILS # (AUTO) 12.1 10^3/uL (1.5-6.6); NEUTROPHILS % (AUTO) 83.4 %; PLT - PLATELET COUNT 409 10^3/uL (130-450); RED BLOOD COUNT 4.22 10^6/uL (4.20-5.40); RED CELL DISTRIBUTION WIDTH 14.1 % (12.0-15.0); WHITE BLOOD COUNT 14.5 x10^3/uL (4.8-10.8)
[2018-01-16 08:32] LABS: ALBUMIN 3.7 g/dL (3.2-5.5); ALBUMIN/GLOBULIN RATIO 1.1 (1.0-2.2); CALCIUM 8.7 mg/dL (8.5-10.3); CREATININE 0.6 mg/dL (0.4-1.0); TOTAL PROTEIN 7.2 g/dL (6.7-8.2)
[2018-01-16] MEDS ORDERED: POTASSIUM CHLOR 10 MEQ/100 ML 10 MEQ/100 ML BAG IV ONE (08:38)
[2018-01-16] MEDS ORDERED: POTASSIUM CHLORIDE 20 MEQ TABLET PO STA (08:38)
[2018-01-16] MEDS ORDERED: DEXTROSE 50% ABBOJECT 25 GM/50 ML SYRINGE ONE (09:26)
[2018-01-16] MEDS ORDERED: SODIUM CHLORIDE FLUSH 0.9% 10 ML SYRINGE IVP PRN (10:20)
--- NOTE | 2018-01-16 11:23 | HISTORY & PHYSICAL EXAMINATION ---
Chief Complaint - Chief Complaint Chief Complaint: headache and shaky History of Present Illness - Admitted From Admitted From:: ED - History Obtained From Records Reviewed: yes History obtained from: chart review, patient Exam Limitations: none - History of Present Illness HPI Comment/Other: Nguyen Guerra is a 37-year old female with a past medical history of obesity, hyperlipidemia, diabetes mellitus type 2, GERD, chronic diarrhea, right knee arthroscopy, right shoulder reconstruction, pneumonia, and Eustachian tube dysfunction. The patient awoke this morning at 4am with a moderate headache and feeling shaky. She states that she drank some orange juice, drove to work and once she arrived was taken directly to the ED as her boss told her "you look very sick". Once in the ED she was found to be hypoglycemic with a blood sugar of 60, was given dextrose IV and 1L of normal saline. She had improvement in her symptoms, but within one hour was noted to be bradycardic with a heart rate of 38, and showed signs of diaphoresis with mild nausea. He blood sugar was now down to 53, so the patient was given orange juice and peanut butter. The patient denies recent illness, recent travel, dizziness, shortness of breath, a new cough, bleeding, changes in bowels or bladder function, rashes, confusion or pain. Labs showed a mildly elevated WBC count of 14.5, with neutrophils, a low sodium of 134, a low potassium of 3.0, and an elevated glucose at 251. She had no other lab abnormalities, including a urine sample that did not indicate UTI and a negative HCG. The patient had fairly stable vital signs including a blood pressure of 130/70, an oxygen saturation of 96%, bradycardia with a heart rate of 53, and a respiratory rate of 14. Her temp was 36.4. The patient will be admitted to observation for management of her diabetic medications as she is on 5 different agents, symptom management and telemetry monitoring. History - Past Medical History Cardiovascular: reports: High cholesterol Respiratory: reports: Pneumonia (March 2017-treated outpatient) Neuro: reports: Headaches Endocrine/Autoimmune: reports: Type 2 diabetes GI: reports: GERD, Chronic diarrhea, Chronic constipation, Hemorrhoids MEDICAL STAFF ASSISTANT: reports: None : reports: None HEENT: reports: Chronic sinusitis Psych: reports: None Musculoskeletal: reports: None Derm: reports: None MRSA Hx?: No - Past Surgical History Ortho: reports: ACL reconstruction (right arthroscopic), Shoulder arthroplasty ( right shoulder reconstruction after a horse accidentally fell on her.) HEENT: reports: Tonsil/Adenoidectomy - Family & Social History Family History: Mother: Alive and Well, Hypertension, Father: Alive and Well, Alcoholism, CAD, Brother: Alive and Well, Hyperlipidemia Family History Comment/Other: The patient has a brother with hyperlipidemia and obesity. Her mother has a history of hypertension, skin cancer and is otherwise alive and well. Her father has CAD, but is astranged from her. Living arrangement: At home Living Situation: With spouse/s.o., With family (8-year old daughter) Social History Notes: The patient lives with her , and their 8-year old daughter. Her is in the and they are from [place]. - Substance History Use: Uses substance without health or social issues: NONE Abuse: Recurrent use of substance despite neg consequences: NONE Dependence: Experiences withdrawal or developed tolerances: NONE - POLST Patient has POLST: No POLST Status: Full Code Meds/Allgy - Home Medications Home Medications: Ambulatory Orders Medication Instructions Recorded Confirmed Atorvastatin Calcium 40 mg PO QPM 01/14/17 01/16/18 Metformin HCl [Metformin HCl ER] 1,000 mg PO DAILY 01/15/17 01/16/18 Insulin Glargine [Lantus Solostar] 20 unit SQ QPM 06/18/17 01/16/18 Insulin Glulisine [Apidra Solostar] 2 - 4 unit SQ TIDWM 06/18/17 01/16/18 SITagliptin [Januvia] 100 mg PO DAILY 06/18/17 01/16/18 Liraglutide [Victoza 2-Petar] 1.6 mg SUBQ QPM 01/16/18 01/16/18 Propranolol HCl [Propranolol HCl 80 mg PO DAILY 01/16/18 01/16/18 ER] - Allergies Allergies/Adverse Reactions: Allergies Allergy/AdvReac Type Severity Reaction Status Date / Time doxycycline Allergy Severe edema, rash Verified 10/01/17 06:14 acetaminophen [From Vicodin] Allergy Dizziness Verified 10/01/17 06:14 hydrocodone [From Vicodin] Allergy Dizziness Verified 10/01/17 06:14 morphine Allergy Hallucinati Verified 10/01/17 06:14 ons Review of Systems - Constitutional Constitutional: reports: Fatigue, Weakness, Weight loss (intentional-up to 13 lbs in the past few months.) - Eyes Eyes: reports: Corrective lenses - Ears, Nose & Throat Ears, Nose & Throat: reports: Nasal congestion, Postnasal drainage, Sore throat (chronic) - Cardiovascular Cariovascular: reports: Lightheadedness - Respiratory Respiratory: reports: Cough - Gastrointestinal Gastrointestinal: reports: Abdominal distention, Constipation, Diarrhea, Nausea , Vomiting, Reflux/heartburn - Integumentary Integumentary: reports: Dryness - Neurological Neurological: reports: Headache, Dizziness, Pre-existing deficit - All Other Systems All Other Systems: reports: Reviewed and negative Exam - Vital Signs Reviewed Vital Signs: Yes Vital Signs: Vital Signs x48h Temp Pulse Resp BP Pulse Ox 01/16/18 10:59 36.0 C L 58 L 14 106/60 100 - Physical Exam General Appearance: positive: Alert, Mild distress, Anxious Eyes Bilateral: positive: Normal inspection, PERRL ENT: positive: ENT inspection nml, Pharyngeal erythema, Dry mucous membranes Neck: positive: Nml inspection, Thyroid nml, No JVD Respiratory: positive: Chest non-tender, No respiratory distress, Breath sounds nml Cardiovascular: positive: Regular rate & rhythm, No gallop, Bradycardia Peripheral Pulses: positive: 1+ Abdomen: positive: Non-tender, Nml bowel sounds, Other (obese, soft) Back: positive: Nml inspection Skin: positive: No rash, Warm, Dry Extremities: positive: Non-tender, Full ROM, Nml appearance, No pedal edema Neurologic/Psychiatric: positive: Oriented x3, CN's nml (2-12), Motor nml, Sensation nml, Mood/affect nml Reflexes: Bicep (R): 4+, Bicep (L): 4+, Ankle (R): 4+, Ankle (L): 4+ Conclusion/Plan - Problem List (1) Bradycardia Conclusion/Plan: The patient was as low as 38 bpm in the ED. After arriving on the nursing floor the patient has continued to run low with heart rates 50-60's on telemetry. Plan: continue work up for hypoglycemia, obtain an echocardiogram and monitor on telemetry. (2) Hypoglycemia Conclusion/Plan: The patient was noted to be as low as 53 in the ED, and was again low at 57 just before her evening meal while on the nursing unit. She is on 5 agents for her diabetes, and these are not on hold. Plan: Continue to monitor for symptoms and routine blood glucose monitoring. (3) Diabetes mellitus type 2 in obese Conclusion/Plan: The patient has been diabetic for about the last 5 years. She states that she recently changed PCPs and now sees Sarah LYNCH at the [facility]. She claims to have lost weight recently and this was most noticable after starting the Victoza. She states that her goal hemoglobin A1C was ~6%, which is where she has been since at least November. She is prescribed a very strict combination of Lantus, Victoza, Apidra, Januvia and Metformin daily and feels very pleased with her success as she is just starting to plan for a . I spoke with Dr. Killian, endocrinology with to review this case via phone consult. He cautioned against the use of Victoza and Januvia in a patient who is attempting to conceive a . He suggests that the patient is under constant blood glucose monitoring and that she obtain a implantable monitor during the time she is trying to conceive a and to ONLY use injectable insulin. Plan: Hold all meds, and continue Lantus at and [facility]/. (4) Migraine Conclusion/Plan: The patient is prescribed propranolol at home. She has tried several agents as per [facility] PCP records such as Imatrex. Since arriving in the ED the patient has had a low heart rate and in this case her usual home med is contraindicated and is since on HOLD. Plan: Monitor headaches and give tylenol. Qualifiers: Migraine type: unspecified Status migrainosus presence: without status migrainosus Intractability: not intractable Qualified Code(s): G43.909 - Migraine, unspecified, not intractable, without status migrainosus (5) Neutrophilic leukocytosis Conclusion/Plan: The patient denies recent illness and was found to have an elevated WBC at 14.5 , with her neurtrophil count being elevated at 12.1. Plan: Monitor vital signs and monitor overall wellness. - Lab Results Lab results reviewed: Yes Fish Bones: 01/17/18 08:33 01/17/18 08:33 - Diagnostic Imaging Results Diagnostic Imaging Results: positive: Final report reviewed - EKG Results EKG Interpreted Independently: Yes EKG Comparison: Unchanged from prior EKG Core Measures - Anticipated LOS I expect patient to be DC'd or transferred within 96 hours.: Yes - DVT/VTE - Prophylaxis VTE/DVT Device ordered at admit?: Yes VTE/DVT Prophylaxis med ordered at admit?: Yes - Stroke - Rehab Assessment Rehab services assessment to be ordered?: No Not Ordered - Medical Reason: Contraindicated - AMI - Statin at Admit Aspirin Prescribed on Admit: Yes
[2018-01-16] MEDS: INSULIN ASPART 300 UNIT/3 ML PEN SUBQ SCH ×3 (12:15→20:26)
[2018-01-16] MEDS ORDERED: SODIUM CHLORIDE 0.65% NASAL SPRAY NAS PRN (14:00)
[2018-01-16] MEDS ORDERED: FLUTICASONE NASAL SPRAY NAS SCH (14:00)
[2018-01-16] MEDS: ACETAMINOPHEN 325 MG TABLET PO PRN ×2 (15:03→20:17)
[2018-01-16] MEDS: OXYMETAZOLINE NASAL SPRAY NAS SCH ×2 (15:03→20:28)
[2018-01-16] MEDS: TRIAMCINOLONE 55 MCG NASAL SPRAY NAS SCH (15:03)
[2018-01-16 16:33] LABS: HB2 TOTAL 13.5 g/dL; HEMOGLOBIN A1C 0.57 g/dL
[2018-01-16] MEDS: SODIUM CHLORIDE FLUSH 0.9% 10 ML SYRINGE IVP SCH ×2 (17:28→23:56)
[2018-01-16] MEDS: DEXTROSE 5%-LACTATED RINGERS 1,000 ML IV SCH (17:28)
[2018-01-16] MEDS: METOCLOPRAMIDE 10 MG TABLET PO SCH ×2 (17:36→23:55)
[2018-01-16] MEDS ORDERED: INSULIN GLARGINE 300 UNIT/3 ML PEN SUBQ SCH ×2 (21:00)
[2018-01-16] MEDS ORDERED: ATORVASTATIN 40 MG TABLET PO SCH (21:00)
[2018-01-16] MEDS ORDERED: ONDANSETRON ODT 4 MG TABLET TL PRN (21:18)
[2018-01-16] MEDS ORDERED: ONDANSETRON 4 MG/2 ML VIAL IVP PRN (21:18)
[2018-01-17] MEDS: METOCLOPRAMIDE 10 MG TABLET PO SCH ×2 (05:21→11:25)
[2018-01-17] MEDS: DEXTROSE 5%-LACTATED RINGERS 1,000 ML IV SCH (05:21)
[2018-01-17] MEDS: ACETAMINOPHEN 325 MG TABLET PO PRN (05:32)
[2018-01-17] MEDS ORDERED: KETOROLAC 30 MG/ML VIAL IVP PRN (07:53)
[2018-01-17] MEDS ORDERED: BUTALB/ACETAM/CAFF 50/325/40MG TABLET PO PRN (07:54)
[2018-01-17] MEDS: INSULIN ASPART 300 UNIT/3 ML PEN SUBQ SCH ×2 (08:22→11:28)
[2018-01-17] MEDS: OXYMETAZOLINE NASAL SPRAY NAS SCH (08:22)
[2018-01-17] MEDS: SODIUM CHLORIDE FLUSH 0.9% 10 ML SYRINGE IVP SCH (08:23)
[2018-01-17] MEDS: TRIAMCINOLONE 55 MCG NASAL SPRAY NAS SCH (08:23)
[2018-01-17 08:40] LABS: BASOPHILS # (AUTO) 0.1 10^3/uL (0.0-0.1); BASOPHILS % (AUTO) 0.7 %; EOSINOPHILS % (AUTO) 0.5 %; HGB - HEMOGLOBIN 12.7 g/dL (12.0-16.0); LYMPHOCYTES # (AUTO) 2.3 10^3/uL (1.5-3.5); LYMPHOCYTES % (AUTO) 22.3 %; MEAN CORPUSCULAR HEMOGLOBIN 30.4 pg (27.0-31.0); MEAN CORPUSCULAR HGB CONC 34.3 g/dL (32.0-36.0); MEAN CORPUSCULAR VOLUME 88.7 fL (81.0-99.0); MEAN PLATELET VOLUME 7.4 fL (7.9-10.8); MONOCYTES # (AUTO) 0.5 10^3/uL (0.0-1.0); MONOCYTES % (AUTO) 4.4 %; NEUTROPHILS # (AUTO) 7.4 10^3/uL (1.5-6.6); NEUTROPHILS % (AUTO) 72.1 %; PLT - PLATELET COUNT 357 10^3/uL (130-450); RED BLOOD COUNT 4.19 10^6/uL (4.20-5.40); RED CELL DISTRIBUTION WIDTH 14.3 % (12.0-15.0); WHITE BLOOD COUNT 10.2 x10^3/uL (4.8-10.8)
[2018-01-17 08:50] LABS: ALBUMIN 3.7 g/dL (3.2-5.5); ALBUMIN/GLOBULIN RATIO 1.1 (1.0-2.2); BILIRUBIN,TOTAL 0.8 mg/dL (0.2-1.0); CALCIUM 8.9 mg/dL (8.5-10.3); CREATININE 0.6 mg/dL (0.4-1.0); MAGNESIUM 1.9 mg/dL (1.7-2.8)
[2018-01-17] MEDS ORDERED: POLYETHYLENE GLYCOL 3350 17 GM PACKET PO SCH (09:00)
[2018-01-17] MEDS ORDERED: PROPRANOLOL ER 80 MG CAPSULE PO SCH (09:00)
[2018-01-17 12:15] VITALS: BP 135/59
--- NOTE | 2018-01-17 12:22 | Discharge Plan ---
Discharge Plan Disposition: Home, Self Care Condition: Good Prescriptions: Ketorolac [Toradol] 10 mg PO Q6H PRN #20 tablet PRN Reason: Headache Triamcinolone [Nasacort Aq] 2 sprays SOTO DAILY #1 bottle Diet: Diabetic Activity Restrictions: Activity as Tolerated Shower Restrictions: No Driving Restrictions: No Weight Bearing: Full Weight Additional Instructions or Follow Up instructions: You were admitted for hypoglycemia (low blood sugar) and bradycardia (low heart rate). You were given dextrose IV fluids overnight and watched on telemetry overnight. I spoke with Dr. Killian, endocrinology who suggests that you stop the Januvia and Victoza when you are trying to conceive. He also suggests that you obtain a continuous glucose monitor as he believes that you likely have hypoglycemia more than you are aware of. To treat your bradycardia, please stay on the Reglan to be taken with meals and at night. You should avoid the propranolol as this could cause a worsening of your slow heart rate. Please continue only the Victoza, Lantus at only 10 units and the Apidra. With your recent weight loss, your body is becoming more efficient, and this may explain the prolonged periods of hypoglycemia. Stop Metformin and Januvia. A hemoglobin A1C was checked and is 6.0%. You also had a normal thyroid stimulating hormone value. Your white blood cells continued to be elevated and this sometimes indicates a bacterial or fungal infection. You showed no other signs of infection. An echocardiogram was completed and showed improved results from your previous test. Last January you were found to have a thickened left ventricle, which as resolved likely from your well managed diabetes and weight loss. Your headaches should improve as your blood sugars stabilize. In the mean time , I have prescribed Toradol. Please see your PCP as early as FridayJanuary 20. She can make a referral to an grab setter for more specialized diabetes management if indicated. No Smoking: If you smoke, Please STOP! Call for help. Follow-up with: Sarah Fermin PA [Primary Care Provider] -
--- NOTE | 2018-01-17 13:01 | DISCHARGE SUMMARY ---
Discharge Summary Admit Date: 01/16/18 Discharge Date: 01/17/18 Discharging Provider: SOFYA Gómez Primary Care Provider: Sarah Fermin Code Status: Attempt Resuscitation Condition at Discharge: Good Discharge Disposition: Home, Self Care - DIAGNOSES Admission Diagnoses: Hypoglycemia, unspecified (E16.2) Obesity, unspecified (E66.9) Type 2 diabetes mellitus without complications (E11.9) Discharge Diagnoses with Status of Each Condition: Bradycardia (R00.1) new on this admit, resolved. Hypoglycemia (E16.2) new on this admit, patient was advised to hold at least 2 of her medications to prevent further events. Diabetes mellitus type 2, insulin dependent (E11.9) chronic, stable. Migraine (G43.909) chronic,stable. Neutrophilic leukocytosis (D72.9) chronic, stable. Obesity (E66.9) chronic, stable. - HPI History of Present Illness: Nguyen Guerra is a 37-year old female with a past medical history of obesity, hyperlipidemia, diabetes mellitus type 2, GERD, chronic diarrhea, right knee arthroscopy, right shoulder reconstruction, pneumonia, and Eustachian tube dysfunction. The patient awoke this morning at 4am with a moderate headache and feeling shaky. She states that she drank some orange juice, drove to work and once she arrived was taken directly to the ED as her boss told her "you look very sick". Once in the ED she was found to be hypoglycemic with a blood sugar of 60, was given dextrose IV and 1L of normal saline. She had improvement in her symptoms, but within one hour was noted to be bradycardic with a heart rate of 38, and showed signs of diaphoresis with mild nausea. He blood sugar was now down to 53, so the patient was given orange juice and peanut butter. The patient denies recent illness, recent travel, dizziness, shortness of breath, a new cough, bleeding, changes in bowels or bladder function, rashes, confusion or pain. Labs showed a mildly elevated WBC count of 14.5, with neutrophils, a low sodium of 134, a low potassium of 3.0, and an elevated glucose at 251. She had no other lab abnormalities, including a urine sample that did not indicate UTI and a negative HCG. The patient had fairly stable vital signs including a blood pressure of 130/70, an oxygen saturation of 96%, bradycardia with a heart rate of 53, and a respiratory rate of 14. Her temp was 36.4. The patient will be admitted to observation for management of her diabetic medications as she is on 5 different agents, symptom management and telemetry monitoring. - CONSULTS | PROCEDURES Consultations: Endocrine- Dr. Killian; phone consult - HOSPITAL COURSE Hospital Course: The following diagnoses were prevalent during this hospital stay: (1) Bradycardia The patient was as low as 38 bpm in the ED. After arriving on the nursing floor the patient has continued to run low with heart rates 50-60's on telemetry. An echocardiogram was ordered for her prolonged bradycardia and showed an improved from her previous study with a resolution of her LV hypertropy that was noted in January 2017. She had suspected V-tach while on the toilet in which the nurse checked on her and had no symptoms. She was having some diarrhea and was on the toilet at the time. Her heart rate improved and she was found to have no further bradycardia with heart rates 70-80 's. (2) Hypoglycemia The patient was noted to be as low as 53 in the ED, and was again low at 57 just before her evening meal while on the nursing unit. She is on 5 agents for her diabetes including; Lantus, Victoza, Apidra, Januvia, and Metformin which were placed on hold overnight and the patient was given D5 LR continuous IV fluids to prevent ongoing hypogylcemia. The ppatient's early AM blood sugar was 134 on CMP lab. She was able to tolerate both her AM and lunch meal. (3) Diabetes mellitus type 2 in obese The patient has been diabetic for about the last 5 years. She states that she recently changed PCPs and now sees Sarah LYNCH at the [facility]. She claims to have lost weight recently and this was most noticable after starting the Victoza. She states that her goal hemoglobin A1C was ~6%, which is where she has been since at least November. She is prescribed a very strict combination of Lantus, Victoza, Apidra, Januvia and Metformin daily and feels very pleased with her success as she is just starting to plan for a . I spoke with Dr. Killian, endocrinology with to review this case via phone consult. He cautioned against the use of Victoza and Januvia in a patient who is attempting to conceive a . He suggests that the patient is under constant blood glucose monitoring and that she obtain a implantable monitor during the time she is trying to conceive a and to ONLY use injectable insulin. Plan: Hold all meds, and continue Lantus at and [facility]. (4) Migraine The patient is prescribed propranolol at home. She has tried several agents as per [facility] PCP records such as Imatrex. Since arriving in the ED the patient has had a low heart rate and in this case her usual home med is contraindicated and is since on HOLD. (5) Neutrophilic leukocytosis The patient denies recent illness and was found to have an elevated WBC at 14.5 , with her neurtrophil count being elevated at 12.1. (6) Obesity The patient has struggled with her weight for all of her adult life. She is currently 99kg with a BMI of 36.3. She has changed PCPs and after changing her diabetic medications the patient reports that she has lost about 13 lbs in the past few months and she attributes this to Victoza. She likely is having these episodes of hypoglycemia due to this weight loss. She admits to working out and getting at least 30 minutes of intentional exercise daily. She consequently now no longer has LV hypertrophy as per echocardiogram. This results was relayed to her and she seemed encouraged to continue her exercise. This condition is considered stable. Disposition: The patient was very anxious to be on her way and ensured that she would follow the medical recommendations of stopping both the Januvia and Metformin. She is also to cut her Lantus dose in half to just 10 units daily. She was transported via private car home. - ALLERGIES Allergies/Adverse Reactions: Allergies Allergy/AdvReac Type Severity Reaction Status Date / Time doxycycline Allergy Severe edema, rash Verified 10/01/17 06:14 acetaminophen [From Vicodin] Allergy Dizziness Verified 10/01/17 06:14 hydrocodone [From Vicodin] Allergy Dizziness Verified 10/01/17 06:14 morphine Allergy Hallucinati Verified 10/01/17 06:14 ons - MEDICATIONS Home Medications: Ambulatory Orders Medication Instructions Recorded Confirmed Atorvastatin Calcium 40 mg PO QPM 01/14/17 01/16/18 Insulin Glargine [Lantus Solostar] 20 unit SQ QPM 06/18/17 01/16/18 Insulin Glulisine [Apidra Solostar] 2 - 4 unit SQ TIDWM 06/18/17 01/16/18 Liraglutide [Victoza 2-Petar] 1.6 mg SUBQ QPM 01/16/18 01/16/18 Propranolol HCl [Propranolol HCl 80 mg PO DAILY 01/16/18 01/16/18 ER] Ketorolac [Toradol] 10 mg PO Q6H PRN #20 tablet 01/17/18 Triamcinolone [Nasacort Aq] 2 sprays SOTO DAILY #1 bottle 01/17/18 - PHYSICAL EXAM AT DISCHARGE General Appearance: positive: No acute distress, Alert, Anxious (tearful in fear of a prolonged hospital stay) Eyes Bilateral: positive: Normal inspection, PERRL ENT: positive: ENT inspection nml, Pharynx nml, No signs of dehydration Neck: positive: Nml inspection, Thyroid nml, No JVD, Trachea midline Respiratory: positive: Chest non-tender, No respiratory distress, Breath sounds nml Cardiovascular: positive: Regular rate & rhythm, No gallop Peripheral Pulses: positive: 2+ Abdomen: positive: Non-tender, Nml bowel sounds, Hepatomegaly, Other (enlarged abdominal girth, obese, soft) Rectal: positive: Hemorrhoid (tag) Back: positive: Nml inspection Skin: positive: Color nml, No rash, Warm, Dry Extremities: positive: Non-tender, Full ROM, Nml appearance, No pedal edema Neurologic/Psychiatric: positive: Oriented x3, CN's nml (2-12), Motor nml, Sensation nml, Depressed mood/affect (anxiety was apparent) Reflexes: Bicep (R): 3+, Bicep (L): 3+ - LABS Result Diagrams: 01/17/18 08:33 01/17/18 08:33 - DIAGNOSTIC IMAGING Diagnostic Imaging Results: Final report reviewed Diagnostic Imaging Results Comments: .ECHOCARDIOGRAM: Indicated for unexplained bradycardia. Preliminary results: The LV size and wall thickness is normal. Overall LV systolic function is normal with an EF of 65-70%. Normal diastology. No regional wall motion abnormalities are seen. The RV is normal in size and function. Normal RV systolic pressure <35 mm Hg. The RVSP at rest is 22 mmHg. No other imaging was ordered. - FOLLOW UP Follow Up: Disposition: Home, Self Care Condition: Good Prescriptions: Ketorolac [Toradol] 10 mg PO Q6H PRN #20 tablet PRN Reason: Headache Triamcinolone [Nasacort Aq] 2 sprays SOTO DAILY #1 bottle Diet: Diabetic Activity Restrictions: Activity as Tolerated Shower Restrictions: No Driving Restrictions: No Weight Bearing: Full Weight Additional Instructions or Follow Up instructions: You were admitted for hypoglycemia (low blood sugar) and bradycardia (low heart rate). You were given dextrose IV fluids overnight and watched on telemetry overnight. I spoke with Dr. Killian, endocrinology who suggests that you stop the Januvia and Victoza when you are trying to conceive. He also suggests that you obtain a continuous glucose monitor as he believes that you likely have hypoglycemia more than you are aware of. To treat your bradycardia, please stay on the Reglan to be taken with meals and at night. You should avoid the propranolol as this could cause a worsening of your slow heart rate. Please continue only the Victoza, Lantus at only 10 units and the Apidra. With your recent weight loss, your body is becoming more efficient, and this may explain the prolonged periods of hypoglycemia. Stop Metformin and Januvia. A hemoglobin A1C was checked and is 6.0%. You also had a normal thyroid stimulating hormone value. Your white blood cells continued to be elevated and this sometimes indicates a bacterial or fungal infection. You showed no other signs of infection. An echocardiogram was completed and showed improved results from your previous test. Last January you were found to have a thickened left ventricle, which as resolved likely from your well managed diabetes and weight loss. Your headaches should improve as your blood sugars stabilize. In the mean time , I have prescribed Toradol. Please see your PCP as early as FridayJanuary 20. She can make a referral to an home visitor home base [facility] for more specialized diabetes management if indicated. - TIME SPENT Time Spent in Discharge (Minutes): 60
== END 2018-01-17 13:35 | disposition home or self-care (01) ==
LOC: ED 07:22 → MS2 10:20
PROVIDERS: ADMIT Nurse Practitioner; ATTEND Nurse Practitioner
DX: E11.649 Type 2 diabetes mellitus with hypoglycemia without coma (principal); Z79.4 Long term (current) use of insulin; R00.1 Bradycardia, unspecified; G43.909 Migraine, unspecified, not intractable, without status migrainosus; D72.829 Elevated white blood cell count, unspecified; E66.9 Obesity, unspecified; Z68.36 Body mass index [BMI] 36.0-36.9, adult; E87.6 Hypokalemia; E78.5 Hyperlipidemia, unspecified
CPT/HCPCS: 36415; 80053; 81003; 81025; 83036; 83690; 83735; 84443; 85025; 93005; 96361; 96365; 96366; 96375; 99284; 99285; A9270; G0378; 81001; 87086

== ENCOUNTER 2018-03-27 17:39 | Emergency (ER) | payer OTHER ==
[2018-03-27] MEDS ORDERED: diphenhydrAMINE 25 MG CAPSULE PO STA (18:04)
--- NOTE | 2018-03-27 18:08 | ED Physician Documentation ---
History of Present Illness - Stated complaint Stated Complaint: ANXIETY - Chief complaint Chief Complaint: General - History obtained from History obtained from: Patient, Family - History of Present Illness Timing: Yesterday Pain level max: 0 Pain level now: 0 Improved by: nothing Worsened by: nothing - Additonal information Additional information: Patient is a 37-year-old female who presents to the emergency department with feeling anxious and unable to relax today. Started after taking eletriptan for the first time. 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 HEENT: Chronic sinusitis Psych: None Musculoskeletal: None Derm: None - Past Surgical History Past Surgical History: Yes Ortho: ACL reconstruction, Shoulder arthroplasty HEENT: Tonsil/Adenoidectomy - Present Medications Home Medications: Ambulatory Orders Medication Instructions Recorded Confirmed Atorvastatin Calcium 40 mg PO QPM 01/14/17 01/16/18 Insulin Glargine [Lantus Solostar] 20 unit SQ QPM 06/18/17 01/16/18 Insulin Glulisine [Apidra Solostar] 2 - 4 unit SQ TIDWM 06/18/17 01/16/18 Liraglutide [Victoza 2-Petar] 1.6 mg SUBQ QPM 01/16/18 01/16/18 Propranolol HCl [Propranolol HCl 80 mg PO DAILY 01/16/18 01/16/18 ER] Ketorolac [Toradol] 10 mg PO Q6H PRN #20 tablet 01/17/18 Triamcinolone [Nasacort Aq] 2 sprays SOTO DAILY #1 bottle 01/17/18 LORazepam [Ativan] 0.5 mg PO Q8H #4 tablet 03/27/18 - Allergies Allergies/Adverse Reactions: Allergies Allergy/AdvReac Type Severity Reaction Status Date / Time doxycycline Allergy Severe edema, rash Verified 10/01/17 06:14 acetaminophen [From Vicodin] Allergy Dizziness Verified 10/01/17 06:14 hydrocodone [From Vicodin] Allergy Dizziness Verified 10/01/17 06:14 morphine Allergy Hallucinati Verified 10/01/17 06:14 ons eletriptan AdvReac Anxiety Verified 03/27/18 20:24 - Social History Does the pt smoke?: No Smoking Status: Never smoker Does the pt drink ETOH?: No Does the pt have substance abuse?: No - Immunizations Immunizations are current?: Yes - POLST Patient has POLST: No POLST Status: Full Code PD ED PE NORMAL - Vitals Vital signs reviewed: Yes - General General: Alert and oriented X 3, No acute distress - HEENT HEENT: Moist mucous membranes - Neck Neck: Supple, no meningeal sign - Cardiac Cardiac: RRR - Respiratory Respiratory: No respiratory distress, Clear bilaterally - Abdomen Abdomen: Soft, Non tender, Non distended - Derm Derm: Warm and dry - Extremities Extremities: No edema, No calf tenderness / cord - Neuro Neuro: Alert and oriented X 3 - Psych Psych: Other (anxious) Results - Vitals Vitals: Vital Signs - 24 hr 03/27/18 03/27/18 03/27/18 17:45 20:06 20:14 Temperature 36.3 C L Heart Rate 96 86 88 Respiratory 20 16 16 Rate Blood Pressure 134/81 H 119/80 O2 Saturation 97 99 99 Oxygen O2 Source Room air - Labs Labs: Laboratory Tests 03/27/18 18:09 Ur Specific Jackson <=1.005 Urine HCG, Qual NEGATIVE PD MEDICAL DECISION MAKING - ED course Complexity details: re-evaluated patient, considered differential, d/w patient, d/w family ED course: Patient is a 37-year-old female who presents to the emergency department what appears to be anxiety secondary to a new medication. Feels better after Benadryl and Ativan and cogentin. Will prescribe a small amount of Ativan for home and follow-up closely with her doctor. Patient counseled regarding signs and symptoms for which I believe and urgent re-evaluation would be necessary. Patient with good understanding of and agreement to plan and is comfortable going home at this time This document was made in part using voice recognition software. While efforts are made to proofread this document, sound alike and grammatical errors may occur. Departure - Departure Disposition: 01 Home, Self Care Clinical Impression: Medication side effect, Anxiety Condition: Good Instructions: ED Stress React Follow-Up: Sarah Fermin PA [Primary Care Provider] - Within 1 week Prescriptions: LORazepam [Ativan] 0.5 mg PO Q8H #4 tablet Comments: This should improve as the medication wears off. You can use the Ativan as needed for anxiety. Do not drive or operate heavy machinery while taking the Ativan. Follow-up with your doctor to discuss other medications for your headaches. Discharge Date/Time: 03/27/18 20:30
[2018-03-27 18:16] LABS: HCG UR QUAL NEGATIVE
[2018-03-27] MEDS ORDERED: LORazepam 0.5 MG TABLET PO STA (18:23)
[2018-03-27] MEDS ORDERED: LORazepam 2 MG/ML VIAL IM STA (18:58)
[2018-03-27] MEDS ORDERED: ONDANSETRON ODT 4 MG TABLET TL STA (18:59)
[2018-03-27] MEDS ORDERED: BENZTROPINE 2 MG TABLET PO STA (18:59)
[2018-03-27 20:07] VITALS: BP 119/80
== END 2018-03-27 20:30 | disposition home or self-care (01) ==
LOC: ED 17:39
DX: F41.9 Anxiety disorder, unspecified (principal); T39.8X5A Adverse effect of other nonopioid analgesics and antipyretics, not elsewhere classified, initial encounter; E11.9 Type 2 diabetes mellitus without complications; Z79.4 Long term (current) use of insulin
CPT/HCPCS: 81025; 96372; 99283; A9270; J2060; Q0162

== ENCOUNTER 2018-05-20 17:09 | Emergency (ER) | payer OTHER ==
[2018-05-20] MEDS ORDERED: ACETAMINOPHEN/CODEINE 300 MG/30 MG TABLET PO STA (17:23)
--- NOTE | 2018-05-20 17:26 | ED Physician Documentation ---
History of Present Illness - Stated complaint Stated Complaint: FEMALE - History obtained from History obtained from: Patient - History of Present Illness Timing: Other (She is been dealing with painful hemorrhoids for about a week. Severe pain with bowel movements. She had diarrhea at the outset which is now resolved but she is stooling soft stools about 2-3 times a day. 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 HEENT: Chronic sinusitis Psych: None Musculoskeletal: None Derm: None - Past Surgical History Past Surgical History: Yes Ortho: ACL reconstruction, Shoulder arthroplasty HEENT: Tonsil/Adenoidectomy - Present Medications Home Medications: Ambulatory Orders Medication Instructions Recorded Confirmed Atorvastatin Calcium 40 mg PO QPM 01/14/17 01/16/18 Insulin Glargine [Lantus Solostar] 20 unit SQ QPM 06/18/17 01/16/18 Insulin Glulisine [Apidra Solostar] 2 - 4 unit SQ TIDWM 06/18/17 01/16/18 Liraglutide [Victoza 2-Petar] 1.6 mg SUBQ QPM 01/16/18 01/16/18 Propranolol HCl [Propranolol HCl 80 mg PO DAILY 01/16/18 01/16/18 ER] Ketorolac [Toradol] 10 mg PO Q6H PRN #20 tablet 01/17/18 Triamcinolone [Nasacort Aq] 2 sprays SOTO DAILY #1 bottle 01/17/18 LORazepam [Ativan] 0.5 mg PO Q8H #4 tablet 03/27/18 Acetaminophen/Cod 300/30 [Tylenol 1 - 2 tab PO Q4H PRN #20 tablet 05/20/18 #3] Lidocaine [Anecream] 5 gm TP QID PRN #4 tu 05/20/18 - Allergies Allergies/Adverse Reactions: Allergies Allergy/AdvReac Type Severity Reaction Status Date / Time doxycycline Allergy Severe edema, rash Verified 10/01/17 06:14 acetaminophen [From Vicodin] Allergy Dizziness Verified 10/01/17 06:14 hydrocodone [From Vicodin] Allergy Dizziness Verified 10/01/17 06:14 morphine Allergy Hallucinati Verified 10/01/17 06:14 ons eletriptan AdvReac Anxiety Verified 03/27/18 20:24 - Social History Does the pt smoke?: No Smoking Status: Never smoker Does the pt drink ETOH?: No Does the pt have substance abuse?: No - Immunizations Immunizations are current?: Yes - POLST Patient has POLST: No POLST Status: Full Code PD ED PE NORMAL - Vitals Vital signs reviewed: Yes - General General: Alert and oriented X 3, No acute distress - Abdomen Abdomen: Soft, Non tender - Female Female : Other (Rectal exam demonstrates several non-thrombosed but tender hemorrhoids without mass.) - Neuro Neuro: Alert and oriented X 3, Normal speech Results - Vitals Vitals: Oxygen O2 Source Room air Departure - Departure Disposition: Home, Self Care Clinical Impression: Hemorrhoids Qualifiers: Hemorrhoid type: unspecified Qualified Code(s): K64.9 - Unspecified hemorrhoids Condition: Good Record reviewed to determine appropriate education?: Yes Instructions: ED Hemorrhoids Prescriptions: Acetaminophen/Cod 300/30 [Tylenol #3] 1 - 2 tab PO Q4H PRN #20 tablet PRN Reason: Pain Lidocaine [Anecream] 5 gm TP QID PRN #4 tu PRN Reason: Rectal Pain Comments: Call your doctor to arrange a follow-up appointment, make the next available appointment. In the interim, return anytime if worse or if new symptoms develop. Do not drink or drive while taking narcotic pain medication. Note that many narcotic pain relievers also contain Tylenol/acetaminophen. Please ensure that your total dose of acetaminophen from all sources does not exceed 3 g (3000 mg) per day. You may get constipated while on this medication. Take a stool softener such as Colace twice a day while you are on it. Also add an [id number] laxative such as senna or MiraLAX on any day that you do not have a bowel movement. If you received a narcotic pain medication or sedative while in the emergency department, do not drive for the next 24 hours.
[2018-05-20 17:27] VITALS: BP 109/50
== END 2018-05-20 17:34 | disposition home or self-care (01) ==
LOC: ED 17:09
DX: K64.9 Unspecified hemorrhoids (principal); E78.00 Pure hypercholesterolemia, unspecified; E11.9 Type 2 diabetes mellitus without complications
CPT/HCPCS: 99283; A9270

== ENCOUNTER 2018-08-04 17:22 | Emergency (ER) | payer OTHER ==
[2018-08-04 18:11] LABS: BILIRUBIN,URINE NEGATIVE (NEGATIVE); GLUCOSE, URINE (UA) NEGATIVE (NEGATIVE); KETONES,URINE (UA) NEGATIVE (NEGATIVE); LEUKOCYTE ESTERASE, URINE NEGATIVE (NEGATIVE); NITRITE,URINE NEGATIVE (NEGATIVE); OCCULT BLOOD,URINE TRACE-INTA (NEGATIVE); PH,URINE 6.5 PH (5.0-7.5); PROTEIN,URINE 30 mg/dL (NEGATIVE); UROBILINOGEN,URINE 0.2 (NORMAL) E.U./dL (NORMAL)
[2018-08-04 18:12] LABS: CLARITY,URINE CLEAR (CLEAR); HCG UR QUAL NEGATIVE
[2018-08-04 18:18] LABS: BACTERIA,URINE None Seen /HPF (None Seen); RBC,URINE 0-5 /HPF (0-5); SQUAMOUS EPITHELIAL CELL,UR MOD Squamous (<= Few)
--- NOTE | 2018-08-04 20:10 | ED Physician Documentation ---
PD HPI ABD PAIN - Stated complaint Stated Complaint: LOW BACK PX/FEVER/VOM - Chief complaint Chief Complaint: Back Pain - History obtained from History obtained from: Patient - History of Present Illness Timing - onset: How many days ago (few) Timing - duration: Days (few) Timing - details: Gradual onset, Waxing and waning Quality: Aching, Other (she has had pain mostly in back, in thoracolumbar area. Some to left side abd. Has had general malaise with some cough and congestion. Having some loose stools but not diarrhea. Pain in back is worsened today; hurts for her bending and moving. Today having some fever as well.) Location: Other (thoracolumbar back, mostly to the left.) Radiation: Left flank Associated symptoms: Fever, Nausea, Vomiting (couple of times today), Other (cough). No: Dysuria, Chest pain Similar symptoms before: Has not had sx before Recently seen: Not recently seen Review of Systems Constitutional: reports: Fever (mild today), Myalgias Nose: reports: Congestion. denies: Rhinorrhea / runny nose Cardiac: denies: Chest pain / pressure Respiratory: reports: Cough GI: reports: Abdominal Pain (upper abd, left mostly), Nausea, Vomiting. denies: Diarrhea : denies: Dysuria, Frequency, Discharge Skin: denies: Rash Musculoskeletal: reports: Back pain. denies: Neck pain Neurologic: reports: Generalized weakness. 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 HEENT: Chronic sinusitis Psych: None Musculoskeletal: None Derm: None - Past Surgical History Past Surgical History: Yes Ortho: ACL reconstruction, Shoulder arthroplasty HEENT: Tonsil/Adenoidectomy - Present Medications Home Medications: Ambulatory Orders Medication Instructions Recorded Confirmed Atorvastatin Calcium 40 mg PO QPM 01/14/17 01/16/18 Insulin Glargine [Lantus Solostar] 20 unit SQ QPM 06/18/17 01/16/18 Insulin Glulisine [Apidra Solostar] 2 - 4 unit SQ TIDWM 06/18/17 01/16/18 Liraglutide [Victoza 2-Petar] 1.6 mg SUBQ QPM 01/16/18 01/16/18 Propranolol HCl [Propranolol HCl 80 mg PO DAILY 01/16/18 01/16/18 ER] Ketorolac [Toradol] 10 mg PO Q6H PRN #20 tablet 01/17/18 Triamcinolone [Nasacort Aq] 2 sprays SOTO DAILY #1 bottle 01/17/18 LORazepam [Ativan] 0.5 mg PO Q8H #4 tablet 03/27/18 Acetaminophen/Cod 300/30 [Tylenol 1 - 2 tab PO Q4H PRN #20 tablet 05/20/18 #3] Lidocaine [Anecream] 5 gm TP QID PRN #4 tu 05/20/18 Cephalexin [Keflex] 500 mg PO Q6H #28 capsule 08/05/18 Dexamethasone [Decadron] 4 mg PO DAILY #5 tablet 08/05/18 Naproxen 375 mg PO BID #20 tablet 08/05/18 Oxycodone HCl/Acetaminophen 1 - 2 each PO Q6H PRN #20 tablet 08/05/18 [Percocet 5-325 mg Tablet] - Allergies Allergies/Adverse Reactions: Allergies Allergy/AdvReac Type Severity Reaction Status Date / Time doxycycline Allergy Severe edema, rash Verified 05/20/18 17:27 acetaminophen [From Vicodin] Allergy Dizziness Verified 05/20/18 17:27 hydrocodone [From Vicodin] Allergy Dizziness Verified 05/20/18 17:27 morphine Allergy Hallucinati Verified 05/20/18 17:27 ons eletriptan AdvReac Anxiety Verified 05/20/18 17:27 - Social History Does the pt smoke?: No Smoking Status: Never smoker Does the pt drink ETOH?: No Does the pt have substance abuse?: No - Immunizations Immunizations are current?: Yes - POLST Patient has POLST: No POLST Status: Full Code PD ED PE NORMAL - Vitals Vital signs reviewed: Yes - General General: Alert and oriented X 3, Well developed/nourished, Other (appears in pain in mid to upper lumbar back. No rash nor sores) - HEENT HEENT: Pharynx benign - Neck Neck: Supple, no meningeal sign, No adenopathy - Cardiac Cardiac: RRR, No murmur - Respiratory Respiratory: No: Clear bilaterally (some coarse congestion in bases. Upper lungs sound okay. ) - Abdomen Abdomen: Soft, Non distended - Female Female : Deferred - Rectal Rectal: Deferred - Back Back: No spinal TTP, Other (left CVA area tender to percussion. ) - Derm Derm: Normal color, No rash Results - Vitals Vitals: Vital Signs - 24 hr 08/04/18 08/04/18 08/05/18 17:44 21:24 00:34 Temperature 38.1 C H 101.8 C H 37.2 C Heart Rate 106 H 87 Respiratory 18 16 Rate Blood Pressure 127/90 H 122/86 H O2 Saturation 97 98 Oxygen O2 Source Room air - Labs Labs: Laboratory Tests 08/04/18 08/04/18 08/04/18 17:55 21:05 21:21 POC Whole Bld Glucose 147 H Urine Color YELLOW Urine Clarity CLEAR Urine pH 6.5 Ur Specific [place] 1.020 Urine Protein 30 H Urine Glucose (UA) NEGATIVE Urine Ketones NEGATIVE Urine Occult Blood TRACE-INTA Urine Nitrite NEGATIVE Urine Bilirubin NEGATIVE Urine Urobilinogen 0.2 (NORMAL) Ur Leukocyte Esterase NEGATIVE Urine RBC 0-5 Urine WBC 0-3 Ur Squamous Epith Cells MOD Squamous H Urine Bacteria None Seen Ur Microscopic Review INDICATED Urine Culture Comments NOT INDICATED Urine HCG, Qual NEGATIVE Influenza A (Rapid) Negative Influenza B (Rapid) Negative 08/04/18 23:35 POC Whole Bld Glucose 147 H Urine Color Urine Clarity Urine pH Ur Specific [place] Urine Protein Urine Glucose (UA) Urine Ketones Urine Occult Blood Urine Nitrite Urine Bilirubin Urine Urobilinogen Ur Leukocyte Esterase Urine RBC Urine WBC Ur Squamous Epith Cells Urine Bacteria Ur Microscopic Review Urine Culture Comments Urine HCG, Qual Influenza A (Rapid) Influenza B (Rapid) - Rads (name of study) KUB CT Radiology: Prelim report reviewed (no stones nor acute abd process. Lower lobes of lung with fluid infiltrates c/w pneumonia) PD MEDICAL DECISION MAKING - ED course Complexity details: reviewed results (CT showing lower lung infiltrates c/w pneumonia. No kidney process noted. ), considered differential, d/w patient Departure - Departure Disposition: 01 Home, Self Care Clinical Impression: Back pain Qualifiers: Back pain location: thoracic back pain Chronicity: acute Back pain laterality: bilateral Qualified Code(s): M54.6 - Pain in thoracic spine Pneumonia Qualifiers: Pneumonia type: due to unspecified organism Laterality: bilateral Lung location: lower lobe of lung Qualified Code(s): J18.1 - Lobar pneumonia, unspecified organism Fever Qualifiers: Fever type: due to other condition Qualified Code(s): R50.81 - Fever presenting with conditions classified elsewhere Condition: Stable Record reviewed to determine appropriate education?: Yes Instructions: ED Neck Back Pain General, ED Pneumonia Adult Follow-Up: Sarah Fermin PA [Primary Care Provider] - Prescriptions: Cephalexin [Keflex] 500 mg PO Q6H #28 capsule Dexamethasone [Decadron] 4 mg PO DAILY #5 tablet Naproxen 375 mg PO BID #20 tablet Oxycodone HCl/Acetaminophen [Percocet 5-325 mg Tablet] 1 - 2 each PO Q6H PRN #20 tablet PRN Reason: pain Comments: Stay well-hydrated. Tylenol or ibuprofen or naproxen if needed for fevers. Keflex as directed for the infection. Decadron for inflammation of the airways. Naproxen twice daily for pain and add Percocet if needed. Discharge Date/Time: 08/05/18 00:45
[2018-08-04] MEDS ORDERED: ONDANSETRON 4 MG/2 ML VIAL IVP STA (20:27)
[2018-08-04] MEDS ORDERED: fentaNYL 100 MCG/2 ML VIAL IVP STA ×2 (20:27→22:00)
[2018-08-04] MEDS ORDERED: SODIUM CHLORIDE 0.9% 1,000 ML IV ONE (20:27)
[2018-08-04] MEDS ORDERED: DIPHENOX/ATROPINE 2.5/0.025 MG TABLET PO STA (20:28)
--- NOTE | 2018-08-04 21:31 | CT Report ---
Reason: flank pain and vomiting Procedure Date: 08/04/2018 Accession Number: [id number] / [id number] Procedure: CT - Abdomen/Pelvis WO CPT Code: FULL RESULT: EXAM: CT ABDOMEN AND PELVIS (CT KUB) EXAM DATE: 08/04/2018 08:45 PM. CLINICAL HISTORY: Flank pain and vomiting. COMPARISONS: ABDOMEN/PELVIS W/ 04/15/2017 9:55 PM. TECHNIQUE: Routine helical CT imaging was performed through the abdomen and pelvis without intravenous contrast. Lack of intravenous contrast can at times limit scan sensitivity, particularly for the detection of intraparenchymal and vascular pathology. Reconstructions: Coronal and sagittal. In accordance with CT protocol optimization, one or more of the following dose reduction techniques were utilized for this exam: automated exposure control, adjustment of mA and/or KV based on patient size, or use of iterative reconstructive technique. FINDINGS: ABDOMEN: Lung Bases: Incompletely included lower lungs demonstrates consolidative opacities in the right middle lobe and left lower lobe. Heart size is within normal limits. No basilar effusions. Liver: Diffuse steatosis. Gallbladder/Bile Ducts: Gallbladder is unremarkable. Visualized biliary tree is normal caliber. Spleen: Unremarkable. Pancreas: Unremarkable. Adrenal Glands: Unremarkable. Kidneys: No calculi or hydronephrosis. Peritoneum/Mesentery/Bowel: No free fluid, free air, or collection. No intestinal obstruction or inflammation. The appendix is within normal limits. Lymph nodes: No mesenteric, periportal, or retroperitoneal lymphadenopathy. PELVIS: The bladder is unremarkable for the degree of distention. Uterus and ovaries are present. No pelvic lymphadenopathy. Retroperitoneum: Abdominal aorta is nonaneurysmal. Bones: No suspicious osseous lesions. IMPRESSION: Right middle and left lower lobe pneumonia. Diffuse hepatic steatosis. RADIA
[2018-08-04] MEDS ORDERED: KETOROLAC 30 MG/ML VIAL IVP STA (22:01)
[2018-08-04] MEDS ORDERED: cefTRIAXone 1 GM VIAL IVP STA (22:43)
[2018-08-05] MEDS ORDERED: DEXAMETHASONE 10 MG/ML VIAL IVP STA (00:16)
[2018-08-05] MEDS ORDERED: fentaNYL 100 MCG/2 ML VIAL IVP STA (00:16)
[2018-08-05] MEDS ORDERED: oxyCODONE/ACET 5/325 Prepack 4 PO STA (00:16)
[2018-08-05] MEDS ORDERED: CHERRY SYRUP 10 ML UDC PO ONE (00:31)
[2018-08-05 00:35] VITALS: BP 122/86
== END 2018-08-05 00:45 | disposition home or self-care (01) ==
LOC: ED 17:22
DX: M54.6 Pain in thoracic spine (principal); J18.1 Lobar pneumonia, unspecified organism; R50.81 Fever presenting with conditions classified elsewhere; E11.9 Type 2 diabetes mellitus without complications; Z79.4 Long term (current) use of insulin
CPT/HCPCS: 74176; 81001; 81025; 87275; 87276; 96361; 96374; 96375; 96376; 99283; 99284; A9270; 81003; 87086

== ENCOUNTER 2018-08-12 08:00 | Outpatient (CLI) | payer OTHER ==
[2018-08-12 19:55] LABS: BASOPHILS % (AUTO) 0.6 %; HGB - HEMOGLOBIN 13.3 g/dL (12.0-16.0); LYMPHOCYTES % (AUTO) 33.6 %; MEAN CORPUSCULAR HEMOGLOBIN 29.6 pg (27.0-31.0); MEAN CORPUSCULAR VOLUME 89.6 fL (81.0-99.0); MEAN PLATELET VOLUME 7.3 fL (7.9-10.8); MONOCYTES % (AUTO) 4.2 %; NEUTROPHILS % (AUTO) 60.6 %; PLT - PLATELET COUNT 452 10^3/uL (130-450); RED BLOOD COUNT 4.49 10^6/uL (4.20-5.40); RED CELL DISTRIBUTION WIDTH 13.7 % (12.0-15.0); WHITE BLOOD COUNT 9.7 x10^3/uL (4.8-10.8)
[2018-08-12 19:58] LABS: ALBUMIN 3.5 g/dL (3.2-5.5); BILIRUBIN,TOTAL 0.8 mg/dL (0.2-1.0); CREATININE 0.6 mg/dL (0.4-1.0); TOTAL PROTEIN 6.9 g/dL (6.7-8.2)
[2018-08-12 20:00] LABS: ABNORMAL LYMPHS % (MANUAL) 0 %
[2018-08-12 21:49] LABS: BAND NEUTROPHILS % (MANUAL) 3 %; EOSINOPHILS # (MANUAL) 0.1 10^3/uL (0-0.7); LYMPHOCYTES # (MANUAL) 3.5 10^3/uL (1.5-3.5); LYMPHOCYTES % (MANUAL) 36 %; MONOCYTES # (MANUAL) 0.1 10^3/uL (0.0-1.0); MYELOCYTES % (MANUAL) 2 %; NEUTROPHILS # (MANUAL) 5.8 10^3/uL (1.5-6.6); NEUTROPHILS % (MANUAL) 57 %
[2018-08-12 21:52] LABS: RBC MORPHOLOGY (MULTIPLE) NORMAL APPEARANCE (NORMAL)
[2018-08-12 21:56] LABS: PLATELET MORPHOLOGY NORMAL APPEARANCE (NORMAL)
[2018-08-12 21:59] LABS: DIFFERENTIAL COMMENT MANUAL DIFFERENTIAL; PLATELET ESTIMATE, MANUAL NORMAL (130-450,000) (NORMAL)
== END 2018-08-12 23:59 | disposition home or self-care (01) ==
LOC: LAB.WCP 08:00
PROVIDERS: ATTEND Physician Assistant
DX: E11.9 Type 2 diabetes mellitus without complications (principal)
CPT/HCPCS: 36415; 80053; 85025

== ENCOUNTER 2018-08-16 15:51 | Outpatient (CLI) | payer OTHER ==
--- NOTE | 2018-08-16 22:47 | XRAY Report ---
Reason: PNEUMONIA Procedure Date: 08/16/2018 Accession Number: [id number] / [id number] Procedure: XR - Chest 2 View X-Ray CPT Code: 52215 FULL RESULT: EXAM: CHEST RADIOGRAPHY EXAM DATE: 08/16/2018 04:02 PM. CLINICAL HISTORY: Follow-up pneumonia seen on recent CT COMPARISON: CHEST 2 VIEW PA/LAT 01/21/2017 1:58 PM ABDOMEN/PELVIS W/O 08/04/2018 8:39 PM. TECHNIQUE: 2 views. FINDINGS: Lungs/Pleura: Improving bibasilar opacities with mild residual. No definite new opacity. No pneumothorax or effusion. Mediastinum: Heart and mediastinal contours are unremarkable. Other: None. IMPRESSION: Improving bibasilar opacities with mild residual. RADIA
== END 2018-08-16 15:52 | disposition home or self-care (01) ==
LOC: DI 15:51
PROVIDERS: ATTEND Physician Assistant
DX: J18.9 Pneumonia, unspecified organism (principal)
CPT/HCPCS: 71046

== ENCOUNTER 2019-08-03 16:21 | Emergency (ER) | payer OTHER ==
[2019-08-03] MEDS ORDERED: SODIUM CHLORIDE 0.9% 1,000 ML IV ONE (16:44)
[2019-08-03] MEDS ORDERED: KETOROLAC 30 MG/ML VIAL IVP STA (16:44)
[2019-08-03] MEDS ORDERED: PROCHLORPERAZINE 10 MG/2 ML VIAL IVP STA (16:45)
[2019-08-03] MEDS ORDERED: diphenhydrAMINE INJ 50 MG/ML VIAL IVP STA (16:45)
[2019-08-03] MEDS ORDERED: DEXAMETHASONE 10 MG/ML VIAL IVP STA (16:46)
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
[2019-08-03 17:40] VITALS: BP 138/88
== END 2019-08-03 17:39 | disposition home or self-care (01) ==
LOC: ED 16:21
DX: G43.109 Migraine with aura, not intractable, without status migrainosus (principal); F41.9 Anxiety disorder, unspecified; T43.3X5A Adverse effect of phenothiazine antipsychotics and neuroleptics, initial encounter; Y92.538 Other ambulatory health services establishments as the place of occurrence of the external cause; E11.9 Type 2 diabetes mellitus without complications; Z79.4 Long term (current) use of insulin
CPT/HCPCS: 96374; 99284; 99285; J1200

== ENCOUNTER 2019-12-10 21:07 | Emergency (ER) | payer OTHER ==
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
[2019-12-10] MEDS ORDERED: oxyCODONE 5 MG TABLET PO STA (21:40)
[2019-12-10] MEDS ORDERED: CYCLOBENZAPRINE 10 MG TABLET PO STA (21:40)
[2019-12-10 23:07] VITALS: BP 148/83
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
== END 2019-12-10 23:13 | disposition home or self-care (01) ==
LOC: ED 21:07
DX: S16.1XXA Strain of muscle, fascia and tendon at neck level, initial encounter (principal); S39.012A Strain of muscle, fascia and tendon of lower back, initial encounter; V89.2XXA Person injured in unspecified motor-vehicle accident, traffic, initial encounter; E11.9 Type 2 diabetes mellitus without complications; Z79.4 Long term (current) use of insulin
CPT/HCPCS: 71046; 99283; 99284; A9270

== ENCOUNTER 2020-01-07 15:14 | Outpatient (CLI) | payer OTHER ==
--- NOTE | 2020-01-07 16:10 | SLEEP CARE CONSULTATION ---
Information from patient questionnaire entered by Marimar Olvera. I have reviewed and concur with the information entered by Marimar Olvera. This document represents the service I personally performed and the decisions made by me, Isabel Vital ARNP. History of Present Illness Service Date and Time: 01/07/2020 1514 Reason for Visit: New patient, Other (Surgery, needs BETZAIDA ruleout for bariatric surgery) Chief Complaint: reports: Insomnia (trouble staying asleep), Unrefreshed sleep (sometimes), Snoring (sometimes, mild), Fatigue (sometimes), Frequent awakenings at night. denies: Excessive daytime sleepiness, Observed pauses in breathing, Other Usual bedtime: 10 PM Time it takes to fall asleep: 1 hour Snores at night: Yes (sometimes) Observed to quit breathing while asleep: No Sleeps alone due to snoring: No Number of times waking at night: 3 Reasons for waking at night: reports: Pain, Other (I just wake up trying to get comfortable). denies: Choking, Snoring, Gasping for air, Bathroom Toss, Turn, or Twitch while sleeping: Yes Usually gets out of bed at: 6:30 AM Feels refreshed in the morning: No Morning headache: Yes (2-3 times a week; resolve within an hour; migraines at n ight hx) Sleepy or fatigued during the day: Yes Ever fallen asleep while driving: No Takes day naps: Yes (rarely, for an hour) Dreams during day naps: Yes Prior sleep studies: No Additional HPI information: I had the pleasure of seeing GIANA SIMPSON today regarding the possibility of her having a sleep disorder. Her current complaints are fatigue, excessive daytime sleepiness and mild snoring. She is preparing to have bariatric surgery and needs clearance of possible BETZAIDA. She has had her tonsil, adenoids removed but her tonsils grew back and they are planning on removing them after bariatric surgery. She is here with her . She states she needs to do a home sleep study since her is soon leaving for work and she has a child at home. - Parasomnia Symptoms Ever been unable to move upon waking from sleep: No Walks in sleep: No Talks in sleep: No Ever acted out dreams in sleep: No Ever felt weak in the knees when startled or emotional: No Bothered by creepy, crawly, restless sensations in legs: No Problems with memory or concentration: No Subjective Initial [place] Sleepiness Scale score: 4 (in 2020) Past Medical History Past Medical History: reports: Diabetes, GERD (acid reflux). 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 Patient is and lives in [place]. Have you smoked in the past 12 months: No Alcohol use: No Caffeine use: Yes Caffeine amount and frequency: 24 oz of iced tea daily Family History Family history of sleep disordered breathing: No Family Hx Sleep Apnea: Sibling: Snoring Allergies and Home Medications Drug allergies reviewed: Yes (see listed) Home medication list reviewed: Yes Allergy and home medication list: Metformin victoza lantus verapamil for migraines Review of Systems Weight gain over past 5 years: 15 Weight loss over past 5 years: 10 Cardiovascular: denies: high blood pressure, palpitations, chest pain, irregular heart rate or pulse, leg or foot swelling Respiratory: denies: shortness of breath, chronic cough Gastrointestinal: reports: heartburn. denies: difficulty swallowing Neurological: reports: headaches. denies: seizure, head trauma, speech dysfunction, gait or balance problems, fainting or unconsciousness Psychiatric: denies: Attention Deficit Hyperactivity, anxiety, depression, mood disorder, claustrophobia Ear/Nose/Throat: reports: nasal congestion, tonsillectomy, wisdom teeth removed (never came in). denies: sinus problems, nose bleeds, dry mouth/throat, hoarseness, injury to nose Endocrine: denies: thyroid disease Musculoskeletal: reports: joint pain. denies: muscle pain or cramping, mobility problems Immunologic: reports: sneezing, itching, allergies to food or environment Physical Exam Blood Pressure: 120/78 Cuff size: long Heart Rate: 87 O2 Saturation: 98 Height: 5 ft 5 in Weight: 220 lb 3.2 oz Body Mass Index: 36.6 BMI Classification: Obese Impression and Plan 1. Suspected Obstructive Sleep Apnea-Hypopnea Syndrome, as suggested by a history of loud and irregular snoring, morning headache, frequent awakening during the night, unrefreshed sleep, and excessive daytime sleepiness. Narrow oropharynx and obesity are common predisposing factors for obstructive sleep ap anuradha-hypopnea syndrome. Patient needs HST to clear her of BETZAIDA prior to having bariatric surgery. I recommend proceeding to polysomnography to confirm the diagnosis and to assess severity. I informed the patient of what the sleep studies involve and after some discussion, obtained agreement to proceed. The pathophysiology of obstructive sleep apnea-hypopnea syndrome was discussed with the patient and health risks of cardiovascular and cerebrovascular disease if not treated. AAS brochure for obstructive sleep apnea-hypopnea syndrome given and reviewed. Risks of drowsy driving discussed in detail and patient advised to avoid long distance driving and to puller over at the first sign of drowsiness. Patient agreed to plan. * Schedule HST polysomnography. * Avoid long distance driving or driving when feeling sleepy. * Avoid sedatives and muscle relaxant around bedtime. * Continue efforts to lose weight. * Review instructions provided by trained office staff on how to prepare for the sleep study. * Return for follow-up after sleep study completed. Visit Type: In Office Time Spent with Patient (minutes): 28 Provider Statement: I spent 100% of the Face to Face Visit with the patient with greater than 50% spent counseling the patient and coordination of care.
[2020-01-07 16:11] VITALS: BP 120/78
== END 2020-01-07 15:15 | disposition home or self-care (01) ==
LOC: SC 15:14
PROVIDERS: ATTEND Nurse Practitioner Family
DX: R06.83 Snoring (principal); G47.10 Hypersomnia, unspecified; R53.83 Other fatigue; G47.8 Other sleep disorders; E11.9 Type 2 diabetes mellitus without complications; E66.9 Obesity, unspecified; Z68.36 Body mass index [BMI] 36.0-36.9, adult
CPT/HCPCS: 99204; 99212

== ENCOUNTER 2020-02-06 19:30 | Outpatient (CLI) | payer OTHER | END 2020-02-06 23:59 | LOC: SC 19:30 | PROVIDERS: ATTEND Nurse Practitioner Family | DX: R06.83 Snoring (principal); G47.8 Other sleep disorders; G47.10 Hypersomnia, unspecified; R53.83 Other fatigue; E11.9 Type 2 diabetes mellitus without complications | CPT/HCPCS: 95806 ==

== ENCOUNTER 2020-02-22 16:01 | Outpatient (CLI) | payer OTHER ==
--- NOTE | 2020-02-22 16:18 | SLEEP CARE CONSULTATION ---
Information from patient questionnaire entered by Marimar Olvera. I have reviewed and concur with the information entered by Marimar Olvera. This document represents the service I personally performed and the decisions made by , Isabel Vital ARNP. History of Present Illness Service Date and Time: 02/22/2020 1601 Initial [place] Sleepiness Scale score: 4 (in 2020) Current [place] Sleepiness Scale score: 4 Additional HPI information: GIANA SIMPSON returns for follow up and results of the recently performed home sleep study. The patient was informed of the following findings: Her HST was negative for significant sleep disordered breathing with a calculated AHI of 2.1 (slept mainly supine) and a mary oxygen saturation of 89.2%. I explained the pathophysiology behind obstructive sleep apnea. Patient does not have sleep apnea and was advised how weight gain could increase the risk of developing sleep apnea in the future. I strongly encouraged the patient to lose weight. Patient has light snoring. Snoring can be reduced by weight loss. Weight loss is best achieved with diet consult. Patient instructed to contact PCP for referral. Snoring can also be treated with an oral appliance from a dentist. Advised to check insurance coverage. In addition, an ENT evaluation can be do to see if other treatment is indicated. Patient counseled not drink alcohol less than 4 hours before bedtime as it can increase snoring and apnea. Patient was cautioned about risks of drowsy driving until sleepiness symptoms resolve. Sleep Study - Results Type of Sleep Study: Home sleep study Prior sleep studies: No Polysomnography/Home Sleep Study results: Based on 4% Calculation: The AHI4% calculation of 2.1 per hour of recording time was based on a total of 5 scored apneas and 11 scored hypopneas with 4% desaturations. Supine AHI4%: 2.1 per hour. Non-supine AHI4%: 0.0 per hour. Oxygen Summary: Patient's baseline O2 saturation was 95.7 %. The patient spent 0.0 minutes at an oxygen saturation less than 90%, and 0.0 minutes less than 85%. The desaturation index was 2.2 events per hour sleep time. The lowest saturation was 89.2 %. SNORING: The percent of the study time spent snoring was 0.0 %. The Snoring Count was 0 . The Snoring Index was 0.0 . PULSE RATE REVIEW: The mean heart rate was 69 beats per minute. The rate ranged from a low of 48 to a high of 89 beats per minute. DIAGNOSIS CODE: suspected Obstructive Sleep Apnea (ICD-10 G47.30) Allergies and Home Medications Drug allergies reviewed: Yes (as listed) Home medication list reviewed: Yes (no changes) Review of Systems Review of systems same as previous: Yes (no changes) Physical Exam Heart Rate: 77 O2 Saturation: 98 Height: 5 ft 5 in Weight: 214 lb Body Mass Index: 35.6 BMI Classification: Obese Impression and Plan Snoring but no significant sleep disordered breathing. Patient advised that often weight loss will reduce snoring as well as apnea risk. An oral appliance can also be used for snoring. This would require a dental consultation. Patient cautioned not to use other online appliances as can cause bite issues. A list of accredited dentists in area and one local dentist who makes oral appliances given. Patient is advised to check if insurance will cover. An ENT consult can also be helpful to determine if any other treatment is an option. * Attempt to lose weight * Avoid alcohol consumption near bedtime * The patient is cautioned about driving until sleepiness is completely resolved. * Return in for follow up. I will response compliance at that time. Visit Type: In Office Time Spent with Patient (minutes): 15 Provider Statement: I spent 100% of the Face to Face Visit with the patient with greater than 50% spent counseling the patient and coordination of care.
== END 2020-02-22 16:02 | disposition home or self-care (01) ==
LOC: SC 16:01
PROVIDERS: ATTEND Nurse Practitioner Family
DX: R06.83 Snoring (principal); E66.9 Obesity, unspecified; Z68.35 Body mass index [BMI] 35.0-35.9, adult
CPT/HCPCS: 99212

== ENCOUNTER 2020-04-15 19:48 | Emergency (ER) | payer OTHER ==
[2020-04-15] MEDS ORDERED: MELOXICAM 7.5 MG TABLET PO STA (20:36)
[2020-04-15] MEDS ORDERED: GABAPENTIN 100 MG CAPSULE PO STA (20:36)
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
[2020-04-15 20:45] VITALS: BP 122/77
== END 2020-04-15 20:46 | disposition home or self-care (01) ==
LOC: ED 19:48
DX: M54.12 Radiculopathy, cervical region (principal); E11.9 Type 2 diabetes mellitus without complications; Z79.4 Long term (current) use of insulin
CPT/HCPCS: 99282; 99284; A9270

== ENCOUNTER 2020-05-27 16:47 | Outpatient (CLI) | payer OTHER ==
--- NOTE | 2020-05-29 18:27 | MRI Report ---
PROCEDURE: Cervical Spine W/O INDICATIONS: CERVICAL RADICULOPATHY TECHNIQUE: Noncontrast sagittal T1 spin echo and T2 fast spin echo, sagittal STIR, foraminal oblique sagittal T2 fast spin echo, and axial gradient echo or T2 fast spin echo through the cervical spine. COMPARISON: Correlation is made with prior cervical radiographs, 12/16/2019. This study is presented for interpretation on the afternoon of 05/29/2020. FINDINGS: Image quality: Diagnostic, with note made of motion artifact. Alignment and Curvature: There is straightening of the normal cervical lordosis. No significant AP a lignment abnormality can be seen. Bone Marrow: Marrow demonstrates normal overall signal. Spinal Cord: Visualized spinal cord has normal size and signal. No cerebellar tonsillar herniation. Paraspinous Soft Tissues: No paravertebral masses. Prevertebral soft tissues are normal in thicknes s. C2-C3: No significant abnormality is seen. C3-C4: Within normal limits. C4-C5: No significant abnormality can be seen. C5-C6: The disc height is well-preserved. There is loss of disc signal seen. Mild to moderate disc o steophyte complex is seen, with a right lateral recess/foraminal disc osteophyte protrusion. There is moderate to severe right-sided and moderate left-sided neuroforaminal narrowing seen. Moderate cent ral canal narrowing is seen. Associated mass effect is seen upon the ventral spinal cord. C6-C7: Mild loss of disc height and disc signal are seen. Moderate disc osteophyte complex is seen, which is eccentric to the left. There is a left lateral recess disc osteophyte extrusion seen, with m ild superior migration of the disc material, as on series 9 and one image 11. There is moderate to se rachel left-sided and at least moderate right-sided neuroforaminal narrowing seen. Moderate central ca nal narrowing is seen. Associated mass effect is seen upon the ventral spinal cord. C7-T1: No significant abnormality is seen at this level. IMPRESSION: Premature cervical spine degenerative changes are seen, which are worst at C5-C6 and C6-C7. Reviewed by: Eliot Anderson MD on 05/29/2020 5:26 PM [facility] Approved by: Eliot Anderson MD on 05/29/2020 5:26 PM [facility] Station ID: [id number]
--- OUTSIDE RECORDS SUMMARY | 2020-05-31 01:53 | EXTERNAL MEDICAL SUMMARY RPT | Continuity of Care Document ---
: Demographics Phone Unavailable Preferred Language Portuguese Marital Status Unknown Anabaptism Affiliation Unknown Race Unknown Ethnic Group Unknown Author Organization [facility] Address [address] [place] [address] Phone Care Team Providers Name Role Phone Sarah AGUILERA Holiday, Unavailable Unavailable Holiday, Sarah Unavailable Unavailable Problems date description facility 2020-02-22 16:01 OBESITY, UNSPECIFIED [facility] 2020-02-22 16:01 SNORING [facility] 2020-02-22 16:01 BODY MASS INDEX [BMI] [facility] 35.0-35.9, ADULT 2020-04-15 19:48 TYPE 2 DIABETES [facility]LLIT[facility] WITHOUT COMPLICATIONS 2020-04-15 19:48 RADICULOPATHY, CERVICAL REGION [facility] 2020-04-15 19:48 [employer]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) [facility] 2020-04-21 00:00:00 Brachial neuritis or [facility] radiculitis NOS [facility] 2020-04-21 00:00:00 MRI CERVICAL SPINE WO [facility] 2020-04-21 00:00:00 Radiculopathy, cervical [facility] [place] [facility] 2020-04-21 00:00:00 [facility] 2020-05-05 00:00:00 Health-related behavior [facility] 2020-05-05 00:00:00 Tobacco use and exposure [facility] 2020-05-05 00:00:00 Exercise [facility] 2020-05-05 00:00:00 Never smoker [facility] [place] [facility] 2020-05-05 00:00:00 Alcohol use [facility] [place] [facility] 2020-05-05 00:00:00 [facility] [place] [facility] 2020-05-05 00:00:00 Total score? [facility] [place] [facility] Allergies date description facility NO KNOWN ALLERGIES [facility] NSAIDS (NON-STEROIDAL ANTI-INFLAMMATORY DRUG) [facility] PEN[place] SULFA (SULFONAMIDE ANTIBIOTICS) [facility] NO KNOWN ALLERGIES [facility] CODEINE [facility] OXYCODONE [facility] GABAPENTIN [facility] ERYTHROMYCIN [facility] morphine [facility] hydrocodone [facility] acetaminophen [facility] doxycycline [facility] e[facility]riptan [facility] seasonal allergies [facility] No Known Medication Allergies [facility] NO KNOWN ALLERGIES [facility] MORPHINE [facility] O[facility]CODONE [facility] FUROSEMIDE [facility] I[facility]INE [facility] Medications date description facility 2020-05-05 00:00:00 null [facility] [place] [facility] 2020-05-05 00:00:00 [facility] [place] [facility] 2020-05-05 00:00:00 GABAPENTIN [facility] [place] [facility] 2020-05-05 00:00:00 GABAPENTIN [facility] [place] [facility] Social History date description facility 2020-05-05 00:00:00 Never smoker [facility] [place] [facility] Social History date description facility 2020-05-05 00:00:00 [facility] [place] [facility] date description facility [id number]
== END 2020-05-27 16:48 | disposition home or self-care (01) ==
LOC: DI 16:47
PROVIDERS: ATTEND Physician Assistant
DX: M50.322 Other cervical disc degeneration at C5-C6 level (principal); M48.02 Spinal stenosis, cervical region; M25.78 Osteophyte, vertebrae; M47.812 Spondylosis without myelopathy or radiculopathy, cervical region

== ENCOUNTER 2020-08-20 23:15 | Emergency (ER) | payer OTHER ==
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
[2020-08-21] MEDS ORDERED: methocarbamoL 500 MG TABLET PO STA (00:18)
[2020-08-21] MEDS ORDERED: DEXAMETHASONE 10 MG/ML VIAL PO STA (00:18)
[2020-08-21] MEDS ORDERED: HYDROmorphone 2 MG/ML VIAL IM STA (00:18)
[2020-08-21] MEDS ORDERED: KETOROLAC 30 MG/ML VIAL IM STA (00:18)
[2020-08-21] MEDS ORDERED: CHERRY SYRUP 10 ML UDC PO ONE (00:18)
[2020-08-21] MEDS ORDERED: oxyCODONE/ACET 5/325 Prepack 4 PO STA (00:47)
[2020-08-21 01:05] VITALS: BP 146/78
== END 2020-08-21 01:05 | disposition home or self-care (01) ==
LOC: ED 23:15
DX: M54.2 Cervicalgia (principal); M54.12 Radiculopathy, cervical region; E11.9 Type 2 diabetes mellitus without complications; Z79.84 Long term (current) use of oral hypoglycemic drugs
CPT/HCPCS: 96372; 99283; A9270; J1170

== ENCOUNTER 2021-06-20 00:02 | Emergency (ER) | payer OTHER ==
--- NOTE | 2021-06-20 01:15 | ED Physician Documentation ---
PD HPI HEENT - Stated complaint Stated Complaint: MOUTH PX - Chief complaint Chief Complaint: Heent - History obtained from History obtained from: Patient - Additional information Additional information: Comes to the emergency department with chief complaint of dental pain and facial swelling. She states it started a couple days ago. She thinks it is one of her Maxillary molars, that is causing the pain and swelling. No fevers or chills. No swelling of her tongue or the floor of her mouth. No difficulty breathing. Review of Systems Ten Systems: 10 systems reviewed and negative Constitutional: reports: Reviewed and negative Eyes: reports: Reviewed and negative Ears: reports: Reviewed and negative Nose: reports: Reviewed and negative Throat: reports: Dental pain / toothache Cardiac: reports: Reviewed and negative Respiratory: reports: Reviewed and negative GI: reports: Reviewed and negative : reports: Reviewed and negative Skin: reports: Reviewed and negative Musculoskeletal: reports: Reviewed and negative Neurologic: reports: Reviewed and negative Psychiatric: reports: Reviewed and negative Endocrine: reports: Reviewed and negative Immunocompromised: reports: Reviewed and negative PD PAST MEDICAL HISTORY - Past Medical History Cardiovascular: High cholesterol Respiratory: Pneumonia Neuro: Headaches, Migraines Endocrine/Autoimmune: Type 2 diabetes GI: GERD, Chronic diarrhea, Chronic constipation, Hemorrhoids 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 HEENT: Chronic sinusitis Psych: None Musculoskeletal: None Derm: None - Past Surgical History Past Surgical History: Yes Ortho: ACL reconstruction, Shoulder arthroplasty HEENT: Tonsil/Adenoidectomy - Present Medications Home Medications: Ambulatory Orders Medication Instructions Recorded Confirmed Liraglutide [Victoza 2-Petar] 1.6 mg SUBQ QPM 01/16/18 08/20/20 Verapamil ER [Calan SA] 180 mg PO DAILY 08/20/20 08/20/20 metFORMIN [Glucophage] 1,000 mg PO DAILY 08/20/20 08/20/20 Amitriptyline [Elavil] 25 mg PO HS 20 Days #20 tablet 08/21/20 Oxycodone HCl/Acetaminophen 1 each PO Q6H PRN #15 tablet 08/21/20 [Percocet 5-325 mg Tablet] dexAMETHasone [Decadron] 4 mg PO DAILY #3 tablet 08/21/20 tiZANidine [Zanaflex] 4 mg PO Q8H PRN #25 tablet 08/21/20 Amoxicillin 500 mg PO TID 7 Days #21 cap 06/20/21 traMADol [Ultram] 100 mg PO Q6H PRN #15 tablet 06/20/21 - Allergies Allergies/Adverse Reactions: Allergies Allergy/AdvReac Type Severity Reaction Status Date / Time doxycycline Allergy Severe edema, rash Verified 08/20/20 23:23 acetaminophen [From Vicodin] Allergy Dizziness Verified 08/20/20 23:23 hydrocodone [From Vicodin] Allergy Dizziness Verified 08/20/20 23:23 morphine Allergy Hallucinati Verified 08/20/20 23:23 ons eletriptan AdvReac Anxiety Verified 08/20/20 23:23 - Social History Does the pt smoke?: No Smoking Status: Never smoker Does the pt drink ETOH?: No Does the pt have substance abuse?: No - Immunizations Immunizations are current?: Yes Immunizations: TDAP >10years/unknown - POLST Patient has POLST: No POLST Status: Full Code PD ED PE NORMAL - Vitals Vital signs reviewed: Yes - General General: Alert and oriented X 3, No acute distress, Well developed/nourished - HEENT HEENT: Atraumatic, PERRL, EOMI, Moist mucous membranes, Dentition benign, Other (Gingival and buccal edema posteriorly along the right maxillary area. No distinct fluctuant collection. No drainage. No obvious dental decay.) - Neck Neck: No adenopathy - Respiratory Respiratory: No respiratory distress - Derm Derm: Warm and dry - Extremities Extremities: No deformity - Neuro Neuro: Alert and oriented X 3 - Psych Psych: Normal mood, Normal affect Results - Vitals Vitals: Vital Signs - 24 hr 06/20/21 01:10 Temperature 36.8 C Heart Rate 79 Respiratory 18 Rate Blood Pressure 150/76 H O2 Saturation 99 Oxygen O2 Source Room air PD MEDICAL DECISION MAKING - ED course Complexity details: considered differential, d/w patient ED course: The patient was treated with antibiotics and analgesia. We have discussed the need for dental follow-up and the usual indications for return. Departure - Departure Disposition: 01 Home, Self Care Clinical Impression: Dental infection Condition: Stable Instructions: ED Abscess Dental Prescriptions: Amoxicillin 500 mg PO TID 7 Days #21 cap traMADol [Ultram] 100 mg PO Q6H PRN #15 tablet PRN Reason: Pain
[2021-06-20 01:16] VITALS: BP 150/76
[2021-06-20] MEDS: AMOXICILLIN 250 MG CAPSULE PO STA (01:43)
[2021-06-20] MEDS: traMADol 50 MG TABLET PO STA (01:43)
== END 2021-06-20 01:55 | disposition home or self-care (01) ==
LOC: ED 00:02
DX: K04.7 Periapical abscess without sinus (principal)
CPT/HCPCS: 99282; 99283; A9270

== ENCOUNTER 2021-09-04 21:23 | Emergency (ER) | payer OTHER ==
[2021-09-04 22:08] LABS: CLARITY,URINE HAZY (CLEAR); GLUCOSE, URINE (UA) 500 mg/dL (NEGATIVE); KETONES,URINE (UA) >=80 mg/dL (NEGATIVE); LEUKOCYTE ESTERASE, URINE NEGATIVE (NEGATIVE); NITRITE,URINE NEGATIVE (NEGATIVE); OCCULT BLOOD,URINE TRACE-INTA (NEGATIVE); PH,URINE 5.5 PH (5.0-7.5); PROTEIN,URINE TRACE mg/dL (NEGATIVE); UROBILINOGEN,URINE 0.2 (NORMAL) E.U./dL (NORMAL)
[2021-09-04 22:12] LABS: BILIRUBIN,URINE NEGATIVE (NEGATIVE); HCG UR QUAL NEGATIVE; ICTOTEST,URINE NEGATIVE
[2021-09-04 22:13] LABS: BASOPHILS # (AUTO) 0.1 10^3/uL (0.0-0.1); BASOPHILS % (AUTO) 0.6 %; EOSINOPHILS # (AUTO) 0.1 10^3/uL (0.0-0.7); EOSINOPHILS % (AUTO) 0.7 %; HCT - HEMATOCRIT 44.3 % (37.0-47.0); HGB - HEMOGLOBIN 14.7 g/dL (12.0-16.0); LYMPHOCYTES # (AUTO) 3.5 10^3/uL (1.5-3.5); LYMPHOCYTES % (AUTO) 27.9 %; MEAN CORPUSCULAR HEMOGLOBIN 29.2 pg (27.0-31.0); MEAN CORPUSCULAR HGB CONC 33.2 g/dL (32.0-36.0); MEAN CORPUSCULAR VOLUME 88.1 fL (81.0-99.0); MEAN PLATELET VOLUME 8.8 fL (7.9-10.8); MONOCYTES # (AUTO) 0.6 10^3/uL (0.0-1.0); NEUTROPHILS # (AUTO) 8.3 10^3/uL (1.5-6.6); NEUTROPHILS % (AUTO) 65.1 %; PLT - PLATELET COUNT 470 10^3/uL (130-450); RED BLOOD COUNT 5.03 10^6/uL (4.20-5.40); RED CELL DISTRIBUTION WIDTH 13.2 % (12.0-15.0); WHITE BLOOD COUNT 12.7 x10^3/uL (4.8-10.8)
--- OUTSIDE RECORDS SUMMARY | 2021-09-04 22:15 | EXTERNAL MEDICAL SUMMARY RPT | Continuity of Care Document ---
: Demographics Phone Unavailable Preferred Language Burmese Marital Status Caodaism Affiliation NO Race Unknown Ethnic Group Unknown Author Organization [place] Address [address] [phone] Phone Care Team Providers Name Role Phone Sarah Fermin Unavailable Unavailable Allergies No information. Encounters No information. Medications date description facility [id number] Prednisone 20 MG Oral Tablet [facility] 20210809 Docusate Sodium 100 MG Oral Capsule [facility] 20210809 Oxycodone Hydrochloride 5 MG Oral Table [facility] [id number] 3 ML liraglutide 6 MG/ML Prefilled Syri [facility] 20210612 Amitriptyline Hydrochloride [address] [facility] 20210612 Ibuprofen 200 MG Oral Tablet [facility] 20210612 Oxycodone Hydrochloride 5 MG Oral [facility] Problems date description facility [id number] Spinal stenosis, cervical region [facility] [id number] Other spondylosis with radiculopathy, c ervical region [facility] 20210808 Arthrodesis status [facility] 20210531 Hyperglycemia, unspecified [facility] 20210531 Encounter for preprocedural laboratory examination [facility] [id number] Encounter for other preprocedural exami [facility] Procedures date description facility [id number] [facility] [id number] [facility] Results No information. Vital Signs date measurement value source 20210808 weight_standard 214.99 lb 20210808 weight_metric 97.52 kg 20210808 height_standard 65 in 20210808 height_metric 165.1 cm 20210808 BMI 35.7 kg/m2 20210809 temperature_standard 98.4 F 20210809 temperature_metric 36.89 C 20210809 respiration_rate 18 /min 20210809 heart_rate 101 /min 20210809 BP_systolic 130 mm[Hg] 20210809 BP_diastolic 60 mm[Hg] 20210817 weight_standard 96.61 lb 20210817 weight_metric 43.82 kg 20210817 temperature_standard 98.5 F 20210817 temperature_metric 36.94 C 20210817 respiration_rate 16 /min 20210817 height_standard 65 in 20210817 height_metric 165.1 cm 20210817 heart_rate 69 /min 20210817 BP_systolic 144 mm[Hg] 20210817 BP_diastolic 77 mm[Hg] 20210817 BMI 35.4 kg/m2
[2021-09-04 22:21] LABS: BACTERIA,URINE Few /HPF (None Seen); RBC,URINE 0-5 /HPF (0-5); SQUAMOUS EPITHELIAL CELL,UR FEW Squamous (<= Few)
[2021-09-04 22:26] LABS: ALBUMIN 4.2 g/dL (3.2-5.5); ALBUMIN/GLOBULIN RATIO 1.1 (1.0-2.2); CALCIUM 9.9 mg/dL (8.5-10.3); CREATININE 0.5 mg/dL (0.4-1.0); POTASSIUM 3.6 mmol/L (3.5-5.0); TOTAL PROTEIN 7.9 g/dL (6.7-8.2)
[2021-09-04] MEDS ORDERED: SODIUM CHLORIDE 0.9% 1,000 ML IV STA (22:59)
[2021-09-04] MEDS ORDERED: ONDANSETRON 4 MG/2 ML VIAL IVP STA (22:59)
[2021-09-04] MEDS ORDERED: HYDROmorphone 1 MG/ML CARPUJECT IVP STA (23:00)
[2021-09-05] MEDS ORDERED: IOVERSOL 320 100 ML VIAL IVP ONE ×2 (00:01→00:22)
--- NOTE | 2021-09-05 00:38 | CT Report ---
PROCEDURE: Abdomen/Pelvis W INDICATIONS: lower abd pain CONTRAST: IV CONTRAST: Optiray 320 ml: 100 PO CONTRAST: *NO PO CONTRAST TECHNIQUE: After the administration of intravenous contrast, 5 mm thick sections acquired from the diaphragms to the symphysis. 5 mm thick coronal and sagittal reformats were acquired. For radiation dose reducti on, the following was used: automated exposure control, adjustment of mA and/or kV according to bettina ent size. COMPARISON: CT KUB 08/04/2018. FINDINGS: Image quality: Excellent. ABDOMEN: Lung bases: Lung bases are clear. Heart size is normal. Solid organs: Liver and spleen are normal in size. Hepatic steatosis. Gallbladder is unremarkable. Biliary system is non dilated. Pancreas enhances normally. No adrenal nodules. Kidneys demonstrate normal size and enhancement, without hydronephrosis. Low density cyst in the mid left kidney. Peritoneum and bowel: Bowel loops demonstrate normal wall thickness and caliber. Normal appendix. N o free fluid or air. Nodes and vessels: No retroperitoneal or mesenteric adenopathy by size criteria. Aorta and inferior vena cava are normal in size. Mild calcified plaque. Miscellaneous: No ventral hernias. Focal skin thickening at the left abdominal wall at the level of the umbilicus, (). No fluid collection. PELVIS: Genitourinary: Bladder is unremarkable. Anteverted uterus. Miscellaneous: No inguinal hernias or adenopathy. Bones: No suspicious bony lesions. No vertebral body compression fractures. IMPRESSION: 1. Left abdominal wall skin thickening. This could represent cellulitis, contusion, or site of subcut aneous injections. 2. No small bowel obstruction. Normal appendix. No free fluid. 3. Hepatic steatosis. Reviewed by: Twin Brady MD on 09/05/2021 12:37 AM PDT Approved by: Twin Brady MD on 09/05/2021 12:37 AM PDT Station ID: [id number]
[2021-09-05] MEDS ORDERED: cefTRIAXone 1 GM in SODIUM CHLORIDE 0.9% MINIBAG 100 ML IV STA (00:51)
[2021-09-05] MEDS ORDERED: ONDANSETRON ODT 4 MG Prepack 2 TL PRN (00:52)
--- NOTE | 2021-09-05 00:54 | ED Physician Documentation ---
PD HPI ABD PAIN - Stated complaint Stated Complaint: ADB PX - Chief complaint Chief Complaint: Abd Pain - History obtained from History obtained from: Patient - Additional information Additional information: SymptomPatient is a 40-year-old female with [id number] diabetes presenting for evaluation of lower abdominal pain That she describes as throbbing, dysuria, nausea and vomiting. Have been present for the last day. Nothing makes it better or worse. She denies fever, cough, congestion, upper abdominal pain, hematuria, back pain.Denies vaginal discharge or concern for STDs or .Patient reports that her blood sugars have been up and down today and so was concernedWhich prompted her to come to the emergency department. Review of Systems Constitutional: denies: Fever Nose: denies: Congestion Cardiac: denies: Chest pain / pressure Respiratory: denies: Dyspnea, Cough GI: reports: Abdominal Pain, Nausea, Vomiting. denies: Constipation, Diarrhea : reports: Dysuria. 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 HEENT: Chronic sinusitis Psych: None Musculoskeletal: None Derm: None - Past Surgical History Past Surgical History: Yes Ortho: ACL reconstruction, Shoulder arthroplasty HEENT: Tonsil/Adenoidectomy - Present Medications Home Medications: Ambulatory Orders Medication Instructions Recorded Confirmed Liraglutide [Victoza 2-Petar] 1.6 mg SUBQ QPM 01/16/18 08/20/20 Verapamil ER [Calan SA] 180 mg PO DAILY 08/20/20 08/20/20 metFORMIN [Glucophage] 1,000 mg PO DAILY 08/20/20 08/20/20 Amitriptyline [Elavil] 25 mg PO HS 20 Days #20 tablet 08/21/20 Oxycodone HCl/Acetaminophen 1 each PO Q6H PRN #15 tablet 08/21/20 [Percocet 5-325 mg Tablet] dexAMETHasone [Decadron] 4 mg PO DAILY #3 tablet 08/21/20 tiZANidine [Zanaflex] 4 mg PO Q8H PRN #25 tablet 08/21/20 Amoxicillin 500 mg PO TID 7 Days #21 cap 06/20/21 traMADol [Ultram] 100 mg PO Q6H PRN #15 tablet 06/20/21 Cefdinir 300 mg PO BID #14 cap 09/05/21 Ondansetron Odt [Zofran] 4 mg TL Q6H PRN #10 tablet 09/05/21 - Allergies Allergies/Adverse Reactions: Allergies Allergy/AdvReac Type Severity Reaction Status Date / Time doxycycline Allergy Severe edema, rash Verified 09/04/21 21:47 acetaminophen [From Vicodin] Allergy Dizziness Verified 09/04/21 21:47 hydrocodone [From Vicodin] Allergy Dizziness Verified 09/04/21 21:47 morphine Allergy Hallucinati Verified 09/04/21 21:47 ons eletriptan AdvReac Anxiety Verified 09/04/21 21:47 - Social History Does the pt smoke?: No Smoking Status: Never smoker Does the pt drink ETOH?: No Does the pt have substance abuse?: No - Immunizations Immunizations are current?: Yes Immunizations: TDAP >10years/unknown - POLST Patient has POLST: No POLST Status: Full Code PD ED PE NORMAL - General General: Alert and oriented X 3, No acute distress, Well developed/nourished - HEENT HEENT: Atraumatic, Moist mucous membranes - Neck Neck: Supple, no meningeal sign - Cardiac Cardiac: RRR, No murmur, Strong equal pulses - Respiratory Respiratory: No respiratory distress, Clear bilaterally - Abdomen Abdomen: Normal bowel sounds, Soft, Non distended, Other (Mild suprapubic tenderness, Exam somewhat limited due to body habitus, no rash or erythema seen onAbdominal wall, no masses) - Female Female : No: Deferred - Back Back: No CVA TTP - Derm Derm: Normal color, No rash - Extremities Extremities: No edema - Neuro Neuro: No motor deficit, Normal speech - Psych Psych: Normal mood, Normal affect Results - Vitals Vitals: Vital Signs - 24 hr 09/04/21 09/04/21 09/05/21 21:43 23:47 01:00 Temperature 36.8 C 36.7 C Heart Rate 95 88 83 Respiratory 17 16 16 Rate Blood Pressure 141/90 H 146/88 H 138/79 H O2 Saturation 99 99 98 04/20/22 01:35 Temperature 36.7 C Heart Rate 78 Respiratory 16 Rate Blood Pressure 133/75 H O2 Saturation 99 Oxygen O2 Source Room air - Labs Labs: Laboratory Tests 09/04/21 09/04/21 09/04/21 22:00 22:08 22:08 WBC 12.7 H RBC 5.03 Hgb 14.7 Hct 44.3 MCV 88.1 MCH 29.2 MCHC 33.2 RDW 13.2 Plt Count 470 H MPV 8.8 Neut # (Auto) 8.3 H Lymph # (Auto) 3.5 Osborne # (Auto) 0.6 Eos # (Auto) 0.1 Baso # (Auto) 0.1 Absolute Nucleated RBC 0.00 Nucleated RBC % 0.0 Sodium 134 L Potassium 3.6 Chloride 99 L Carbon Dioxide 22 Anion Gap 13.0 BUN 19 Creatinine 0.5 Estimated GFR (MDRD) 137 Glucose 166 H Calcium 9.9 Total Bilirubin 1.0 AST 19 ALT 24 Alkaline Phosphatase 103 Total Protein 7.9 Albumin 4.2 Globulin 3.7 Albumin/Globulin Ratio 1.1 Lipase 30 Urine Color YELLOW Urine Clarity HAZY Urine pH 5.5 Ur Specific [place] 1.025 Urine Protein TRACE Urine Glucose (UA) 500 H Urine Ketones >=80 H Urine Occult Blood TRACE-INTA Urine Nitrite NEGATIVE Urine Bilirubin NEGATIVE Urine Urobilinogen 0.2 (NORMAL) Ur Leukocyte Esterase NEGATIVE Urine RBC 0-5 Urine WBC 11-25 H Ur Squamous Epith Cells FEW Squamous Urine Bacteria Few Ur Microscopic Review INDICATED Urine Culture Comments NOT INDICATED Urine HCG, Qual NEGATIVE PD MEDICAL DECISION MAKING - ED course Complexity details: reviewed results, d/w patient ED course: Patient with suprapubic discomfort with nausea and vomiting. Vital signs are stable. Labs are overall reassuring. Urine does have some markers for infection and given her symptoms I we will start her on p.o. antibiotics for urinary tract infection. Patient was given 1 dose of IV Rocephin. Denies pelvic complaints or vaginal discharge.CT scan with findings of left abdominal wall skin thickening. On exam I do not find evidence of cellulitis or contusion. Patient does give herself injections of her diabetes medications but reports changing sides every day.Patient was improved with medications in the emergency department appears stable for discharge. She does not appear septic. Patient was counseled on treatment plan and need for follow-up as well as return precautions. Departure - Departure Disposition: 01 Home, Self Care Clinical Impression: Abdominal pain Qualifiers: Abdominal location: generalized Qualified Code(s): R10.84 - Generalized abdominal pain UTI (urinary tract infection) Qualifiers: Urinary tract infection type: acute cystitis Hematuria presence: without tobias turia Qualified Code(s): N30.00 - Acute cystitis without hematuria Vomiting Qualifiers: Vomiting type: unspecified Nausea presence: with nausea Qualified Code(s): R11.2 - Nausea with vomiting, unspecified Condition: Stable Instructions: ED Abdominal Pain Female Non-Specific Abdominal Pain, ED UTI Cystitis Female Prescriptions: Cefdinir 300 mg PO BID #14 cap Ondansetron Odt [Zofran] 4 mg TL Q6H PRN #10 tablet PRN Reason: Nausea / Vomiting Comments: Nguyen you are evaluated for abdominal pain as well as nausea and vomiting. Your electrolytes were overall very reassuring and your white blood cell count was slightly elevated. Your urine did show signs of an infection. Your CT scan did not show anything requiring surgery or an infection inside of your abdomen. I have sent a prescription for antibiotics to the [facility] pharmacy in [place] as well as medication for your nausea. Please continue taking these medications as prescribed. Please also have close follow-up with your regular doctor.Please return to the emergency department if you have any worsening of your symptoms or new symptoms that are concerning. Discharge Date/Time: 09/05/21 01:36
[2021-09-05] MEDS ORDERED: cefTRIAXone 1 GM VIAL ONE (01:07)
[2021-09-05 01:36] VITALS: BP 133/75
== END 2021-09-05 01:36 | disposition home or self-care (01) ==
LOC: ED 21:23
DX: N30.00 Acute cystitis without hematuria (principal); R10.84 Generalized abdominal pain; R11.2 Nausea with vomiting, unspecified
CPT/HCPCS: 36415; 74177; 80053; 81001; 81025; 83690; 85025; 96365; 96375; 99283; 99284; J1170; Q9967; 81003; 87086

== ENCOUNTER 2021-12-19 08:00 | Outpatient (CLI) | payer OTHER ==
[2021-12-19 22:33] LABS: BACTERIAL VAGINOSIS DNA NEGATIVE (NEGATIVE); CANDIDA GLABRATA DNA POSITIVE (NEGATIVE); CANDIDA GROUP DNA POSITIVE (NEGATIVE); CANDIDA KRUSEI DNA NEGATIVE (NEGATIVE); TRICHOMONAS VAGINALIS DNA NEGATIVE (NEGATIVE)
== END 2021-12-19 23:59 | disposition home or self-care (01) ==
LOC: LAB.N 08:00
PROVIDERS: ATTEND Family Medicine
DX: N76.0 Acute vaginitis (principal); R30.0 Dysuria
CPT/HCPCS: 81514; 87086; 87181

== ENCOUNTER 2022-06-05 06:30 | Emergency (ER) | payer OTHER ==
--- OUTSIDE RECORDS SUMMARY | 2022-06-05 06:59 | EXTERNAL MEDICAL SUMMARY RPT | Continuity of Care Document ---
:1980 Author Organization [facility] Address [address] [place] [address] Phone Allergies No information. Encounters No information. Functional Status No information. Immunizations No information. Medications No information. Problems No information. Procedures No information. Results/Labs test date author facility value unit interpret ation Result panel 1 (unknown) (no (unknown) (unknown) (no value) (units (unk nown) date) unknown) (unknown) (no (unknown) (unknown) 'my skin (units (unkno wn) date) unknown) (unknown) (no (unknown) (unknown) (Jardiance) (units (un known) date) unknown) (unknown) (no (unknown) (unknown) (Victoza 2-Petar) (units (unknown) date) unknown) (unknown) (no (unknown) (unknown) (past 8 hours): (units (unknown) date) unknown) (unknown) (no (unknown) (unknown) 08/08/21 (units (unkno wn) date) unknown) (unknown) (no (unknown) (unknown) 06:58 (units (unkno wn) date) unknown) (unknown) (no (unknown) (unknown) 88 (units (unkno wn) date) unknown) (unknown) (no (unknown) (unknown) Age/Sex: 40 / F (units (unknown) date) unknown) (unknown) (no (unknown) (unknown) Allergies (units (unkn own) date) unknown) (unknown) (no (unknown) (unknown) Allergy/AdvReac (units (unknown) date) Type Severity unknown) Reaction Status Date / Time (unknown) (no (unknown) (unknown) Assessment + (units (u nknown) date) Plan unknown) (unknown) (no (unknown) (unknown) Been Physically (units (unknown) date) Hurt or No unknown) (unknown) (no (unknown) (unknown) Blood Pressure (units (unknown) date) 133/85 unknown) (unknown) (no (unknown) (unknown) Cancer (units (unkno wn) date) unknown) (unknown) (no (unknown) (unknown) Chief complaint: (units (unknown) date) Cervical fusion unknown) *OPB* (unknown) (no (unknown) (unknown) Chronic migraine (units (unknown) date) unknown) (unknown) (no (unknown) (unknown) Critical Care (units ( unknown) date) time: unknown) (unknown) (no (unknown) (unknown) : 1980 (units (unknown) date) Acct:[id number] unknown) (unknown) (no (unknown) (unknown) Date Patient (units (u nknown) date) Seen: 08/08/21 unknown) (unknown) (no (unknown) (unknown) Date of Onset of (units (unknown) date) Symptoms: unknown) 03/21/20 (unknown) (no (unknown) (unknown) Date of Service: (units (unknown) date) 08/08/21 unknown) (unknown) (no (unknown) (unknown) Diabetes (units (unkno wn) date) mellitus unknown) (unknown) (no (unknown) (unknown) Diabetes (units (unkno wn) date) unknown) (unknown) (no (unknown) (unknown) Environment (units (un known) date) unknown) (unknown) (no (unknown) (unknown) Exam (units (unkno wn) date) unknown) (unknown) (no (unknown) (unknown) Family + Social (units (unknown) date) History unknown) (unknown) (no (unknown) (unknown) Family History (units (unknown) date) (Reviewed unknown) 08/09/18 @ 17:26 by Lauren Allred PA-C) (unknown) (no (unknown) (unknown) Feels Safe in (units ( unknown) date) Current Yes unknown) (unknown) (no (unknown) (unknown) GERD (units (unkno wn) date) (gastroesophageal unknown) reflux disease) (unknown) (no (unknown) (unknown) Grandfather (units (un known) date) Heart disease unknown) (unknown) (no (unknown) (unknown) Grandmother (units (un known) date) Gallstone unknown) (unknown) (no (unknown) (unknown) History + (units (unkn own) date) Physical Report unknown) (unknown) (no (unknown) (unknown) History of (units (unk nown) date) Present Illness unknown) (unknown) (no (unknown) (unknown) History (units (unkno wn) date) unknown) (unknown) (no (unknown) (unknown) Home Medications (units (unknown) date) and Allergies unknown) (unknown) (no (unknown) (unknown) Home Medications (units (unknown) date) unknown) (unknown) (no (unknown) (unknown) Hx of (units (unkno wn) date) arthroscopy of unknown) right knee (-1993) (unknown) (no (unknown) (unknown) Hx of shoulder (units (unknown) date) surgery (1999) unknown) (unknown) (no (unknown) (unknown) Hx of thumb (units (un known) date) surgery (2009) unknown) (unknown) (no (unknown) (unknown) Hx of (units (unkno wn) date) tonsillectomy unknown) (unknown) (no (unknown) (unknown) I spent a total (units (unknown) date) of [] minutes of unknown) critical care time on this patient's care (unknown) (no (unknown) (unknown) [facility] (units (unknown) date) [address] [place] [address] Street unknown) [place] [address] (unknown) (no (unknown) (unknown) Medical History (units (unknown) date) (Reviewed unknown) 08/08/21 @ 06:52 by Joleen Wagner RN) (unknown) (no (unknown) (unknown) Medication (units (unk nown) date) Instructions unknown) Recorded Confirmed Type (unknown) (no (unknown) (unknown) Meds (units (unkno wn) date) unknown) (unknown) (no (unknown) (unknown) Mother Gallstone (units (unknown) date) unknown) (unknown) (no (unknown) (unknown) Ms. Guerra is here (units (unknown) date) for chronic unknown) cervical radiculopathy. She is having right arm (unknown) (no (unknown) (unknown) Narrative: (units (unk nown) date) unknown) (unknown) (no (unknown) (unknown) Oxygen Delivery (units (unknown) date) Method Room Air unknown) (unknown) (no (unknown) (unknown) Patient History (units (unknown) date) unknown) (unknown) (no (unknown) (unknown) Patient: (units (unkno wn) date) Nguyen Guerra MR#: unknown) [id number] (unknown) (no (unknown) (unknown) Prior Living (units (u nknown) date) Arrangements unknown) House (unknown) (no (unknown) (unknown) Provider: (units (unkn own) date) Iva Matthew MD unknown) (unknown) (no (unknown) (unknown) Pulse Oximetry (units (unknown) date) 98 unknown) (unknown) (no (unknown) (unknown) Pulse Rate 80 (units ( unknown) date) unknown) (unknown) (no (unknown) (unknown) Respiratory Rate (units (unknown) date) 18 unknown) (unknown) (no (unknown) (unknown) Safety + (units (unkno wn) date) Behavioral: unknown) (unknown) (no (unknown) (unknown) She failed (units (unk nown) date) conservative c unknown) (unknown) (no (unknown) (unknown) Signed By: (units (unk nown) date) unknown) (unknown) (no (unknown) (unknown) Smoking Status (units (unknown) date) Never smoker unknown) (unknown) (no (unknown) (unknown) Social History: (units (unknown) date) unknown) (unknown) (no (unknown) (unknown) Spinal stenosis (units (unknown) date) in cervical unknown) region (unknown) (no (unknown) (unknown) Stroke (units (unkno wn) date) unknown) (unknown) (no (unknown) (unknown) Substance Use (units ( unknown) date) Type does not use unknown) (unknown) (no (unknown) (unknown) Suicidal (units (unkno wn) date) Ideation unknown) Description None (unknown) (no (unknown) (unknown) Suicide Plan (units (u nknown) date) Description No unknown) Plan (unknown) (no (unknown) (unknown) Surgical History (units (unknown) date) (Reviewed unknown) 08/08/21 @ 06:52 by Joleen Wagner RN) (unknown) (no (unknown) (unknown) Temperature 97 F (units (unknown) date) L unknown) (unknown) (no (unknown) (unknown) Threatened By a (units (unknown) date) Person unknown) (unknown) (no (unknown) (unknown) Time Patient (units (u nknown) date) Seen: 07:41 unknown) (unknown) (no (unknown) (unknown) Time Spent With (units (unknown) date) Patient unknown) (unknown) (no (unknown) (unknown) Tobacco + (units (unkn own) date) Substance use: unknown) (unknown) (no (unknown) (unknown) Vital Signs (units (un known) date) unknown) (unknown) (no (unknown) (unknown) acetaminophen (units ( unknown) date) 500 mg capsule unknown) 1,000 mg PO QD-BID PRN 06/12/21 08/08/21 History (unknown) (no (unknown) (unknown) alcohol intake (units (unknown) date) never unknown) (unknown) (no (unknown) (unknown) amitriptyline 25 (units (unknown) date) mg tablet 25 mg unknown) PO BEDTIME 06/12/21 08/08/21 History (unknown) (no (unknown) (unknown) blew up (units (unkno wn) date) unknown) (unknown) (no (unknown) (unknown) doxycycline (units (un known) date) Allergy Severe unknown) Sun Verified 08/08/21 06:52 (unknown) (no (unknown) (unknown) eletriptan (units (unk nown) date) Allergy Severe unknown) Rash/Anxiet Verified 08/08/21 06:52 (unknown) (no (unknown) (unknown) empagliflozin 10 (units (unknown) date) mg tablet 10 mg unknown) PO DAILY 06/12/21 08/08/21 History (unknown) (no (unknown) (unknown) hallucinations (units (unknown) date) unknown) (unknown) (no (unknown) (unknown) household (units (unkn own) date) members unknown) spouse,children (unknown) (no (unknown) (unknown) hydrocodone (units (un known) date) [From Vicodin] unknown) AdvReac Severe Headaches, Verified 08/08/21 06:52 (unknown) (no (unknown) (unknown) ibuprofen 200 mg (units (unknown) date) tablet 400 mg PO unknown) DAILY 06/12/21 08/08/21 History (unknown) (no (unknown) (unknown) jellyfish' (units (unk nown) date) unknown) (unknown) (no (unknown) (unknown) like a (units (unkno wn) date) unknown) (unknown) (no (unknown) (unknown) liraglutide 0.6 (units (unknown) date) mg/0.1 mL (18 unknown) mg/3 1.8 mg SUBCUT DAILY ml 03/23/18 08/08/21 (unknown) (no (unknown) (unknown) mL) subcutaneous (units (unknown) date) pen injector unknown) (unknown) (no (unknown) (unknown) metformin 1,000 (units (unknown) date) mg tablet 1,000 unknown) mg PO BID 03/23/18 08/08/21 History (unknown) (no (unknown) (unknown) morphine AdvReac (units (unknown) date) Severe Vomiting, unknown) Verified 08/08/21 06:52 (unknown) (no (unknown) (unknown) oxycodone 5 mg (units (unknown) date) tablet 5 mg PO unknown) BID 06/12/21 08/08/21 History (unknown) (no (unknown) (unknown) pain, weakness (units (unknown) date) and numbness. unknown) (unknown) (no (unknown) (unknown) poisoning, (units (unk nown) date) unknown) (unknown) (no (unknown) (unknown) today; this time (units (unknown) date) is exclusive of unknown) procedural time. (unknown) (no (unknown) (unknown) vomiting (units (unkno wn) date) unknown) (unknown) (no (unknown) (unknown) y (units (unkno wn) date) unknown) Social History No information. Vital Signs No information.
[2022-06-05 07:12] LABS: BILIRUBIN,URINE NEGATIVE (NEGATIVE); GLUCOSE, URINE (UA) NEGATIVE (NEGATIVE); KETONES,URINE (UA) 40 mg/dL (NEGATIVE); LEUKOCYTE ESTERASE, URINE NEGATIVE (NEGATIVE); NITRITE,URINE NEGATIVE (NEGATIVE); OCCULT BLOOD,URINE TRACE-INTA (NEGATIVE); PROTEIN,URINE NEGATIVE (NEGATIVE); UROBILINOGEN,URINE 0.2 (NORMAL) E.U./dL (NORMAL)
[2022-06-05 07:14] LABS: CLARITY,URINE HAZY (CLEAR)
[2022-06-05 07:35] LABS: BACTERIA,URINE Many /HPF (None Seen); RBC,URINE 0-5 /HPF (0-5); SQUAMOUS EPITHELIAL CELL,UR MANY Squamous (<= Few); WBC,URINE 0-3 /HPF (0-5)
[2022-06-05 08:09] LABS: BASOPHILS # (AUTO) 0.1 10^3/uL (0.0-0.1); BASOPHILS % (AUTO) 0.8 %; EOSINOPHILS # (AUTO) 0.1 10^3/uL (0.0-0.7); EOSINOPHILS % (AUTO) 1.6 %; HCT - HEMATOCRIT 44.4 % (37.0-47.0); HGB - HEMOGLOBIN 14.1 g/dL (12.0-16.0); LYMPHOCYTES # (AUTO) 3.1 10^3/uL (1.5-3.5); LYMPHOCYTES % (AUTO) 33.9 %; MEAN CORPUSCULAR HEMOGLOBIN 28.9 pg (27.0-31.0); MEAN CORPUSCULAR HGB CONC 31.8 g/dL (32.0-36.0); MEAN PLATELET VOLUME 9.3 fL (7.9-10.8); MONOCYTES # (AUTO) 0.4 10^3/uL (0.0-1.0); MONOCYTES % (AUTO) 4.8 %; NEUTROPHILS # (AUTO) 5.3 10^3/uL (1.5-6.6); NEUTROPHILS % (AUTO) 58.1 %; PLT - PLATELET COUNT 403 10^3/uL (130-450); RED BLOOD COUNT 4.88 10^6/uL (4.20-5.40); RED CELL DISTRIBUTION WIDTH 13.6 % (12.0-15.0)
[2022-06-05 08:25] LABS: ALBUMIN 3.8 g/dL (3.2-5.5); ALBUMIN/GLOBULIN RATIO 1.1 (1.0-2.2); BILIRUBIN,TOTAL 0.8 mg/dL (0.2-1.0); CALCIUM 9.1 mg/dL (8.5-10.3); CREATININE 0.6 mg/dL (0.4-1.0); POTASSIUM 3.5 mmol/L (3.5-5.0); TOTAL PROTEIN 7.4 g/dL (6.7-8.2)
--- NOTE | 2022-06-05 09:07 | ED Physician Documentation ---
PD HPI ABD PAIN - Stated complaint Stated Complaint: R SIDED FLANK PX - Chief complaint Chief Complaint: Abd Pain - History obtained from History obtained from: Patient - Additional information Additional information: Patient is a 41-year-old with a history of diabetes presenting for evaluation of right flank pain that has been present since Friday. Patient reports last week that she had a migraine headache and was having nausea and vomiting and initially thought it was a pulled muscle. However the pain has persisted and become more constant. It feels like a dull throbbing ache. It does not radiate. She reports having continued nausea. She denies fever, chest pain, difficulty breathing. She denies dysuria or frequency. She denies hematuria. She does have a history of her prior kidney stone. She denies a history of abdominal surgeries.She denies concern for . She denies vaginal bleeding or discharge. 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 : None HEENT: Chronic sinusitis Psych: None Musculoskeletal: None Derm: None - Past Surgical History Past Surgical History: Yes Ortho: ACL reconstruction, Shoulder arthroplasty HEENT: Tonsil/Adenoidectomy - Present Medications Home Medications: Ambulatory Orders Medication Instructions Recorded Confirmed Liraglutide [Victoza 2-Petar] 1.6 mg SUBQ QPM 01/16/18 06/05/22 metFORMIN [Glucophage] 500 mg PO BID 08/20/20 06/05/22 Empagliflozin [Jardiance] 10 mg PO BID 06/05/22 06/05/22 Lidocaine Patch 5% [Lidoderm Patch] 1 patch TOP DAILY PRN #10 patch 06/05/22 Ondansetron Odt [Zofran] 4 mg TL Q6H PRN #10 tablet 06/05/22 - Allergies Allergies/Adverse Reactions: Allergies Allergy/AdvReac Type Severity Reaction Status Date / Time doxycycline Allergy Severe edema, rash Verified 06/05/22 06:53 eletriptan AdvReac Anxiety Verified 06/05/22 06:53 hydrocodone [From Vicodin] AdvReac Dizziness Verified 06/05/22 06:53 morphine AdvReac Hallucinati Verified 06/05/22 06:53 ons - Social History Does the pt smoke?: No Smoking Status: Never smoker Does the pt drink ETOH?: No Does the pt have substance abuse?: No - Immunizations Immunizations are current?: Yes Immunizations: TDAP >10years/unknown - POLST Patient has POLST: No POLST Status: Full Code PD ED PE NORMAL - General General: Alert and oriented X 3, No acute distress, Well developed/nourished - HEENT HEENT: Atraumatic - Neck Neck: Supple, no meningeal sign - Cardiac Cardiac: RRR, No murmur - Respiratory Respiratory: No respiratory distress, Clear bilaterally - Abdomen Abdomen: Soft, Non tender, Non distended - Back Back: No spinal TTP, Other (Right flank tenderness to palpation, no rash) - Derm Derm: Warm and dry - Extremities Extremities: No edema - Neuro Neuro: Alert and oriented X 3, Normal speech Results - Vitals Vitals: Vital Signs - 24 hr 06/05/22 09:39 Heart Rate 78 Respiratory 16 Rate Blood Pressure 137/97 H O2 Saturation 99 Oxygen O2 Source Room air - Labs Labs: Laboratory Tests 06/05/22 06/05/22 06/05/22 06:53 06:53 08:05 WBC 9.0 RBC 4.88 Hgb 14.1 Hct 44.4 MCV 91.0 MCH 28.9 MCHC 31.8 L RDW 13.6 Plt Count 403 MPV 9.3 Neut # (Auto) 5.3 Lymph # (Auto) 3.1 Rapides # (Auto) 0.4 Eos # (Auto) 0.1 Baso # (Auto) 0.1 Absolute Nucleated RBC 0.00 Nucleated RBC % 0.0 Sodium Potassium Chloride Carbon Dioxide Anion Gap BUN Creatinine Estimated GFR (MDRD) Glucose Calcium Total Bilirubin AST ALT Alkaline Phosphatase Total Protein Albumin Globulin Albumin/Globulin Ratio Lipase Urine Color YELLOW Urine Clarity HAZY Urine pH 6.0 Ur Specific [place] 1.025 Urine Protein NEGATIVE Urine Glucose (UA) NEGATIVE Urine Ketones 40 H Urine Occult Blood TRACE-INTA Urine Nitrite NEGATIVE Urine Bilirubin NEGATIVE Urine Urobilinogen 0.2 (NORMAL) Ur Leukocyte Esterase NEGATIVE Urine RBC 0-5 Urine WBC 0-3 Ur Squamous Epith Cells MANY Squamous H Urine Bacteria Many H Urine Culture Comments NOT INDICATED Urine HCG, Qual NEGATIVE 06/05/22 08:05 WBC RBC Hgb Hct MCV MCH MCHC RDW Plt Count MPV Neut # (Auto) Lymph # (Auto) [place]ides # (Auto) Eos # (Auto) Baso # (Auto) Absolute Nucleated RBC Nucleated RBC % Sodium 137 Potassium 3.5 Chloride 102 Carbon Dioxide 25 Anion Gap 10.0 BUN 14 Creatinine 0.6 Estimated GFR (MDRD) 110 Glucose 162 H Calcium 9.1 Total Bilirubin 0.8 AST 14 ALT 24 Alkaline Phosphatase 79 Total Protein 7.4 Albumin 3.8 Globulin 3.6 Albumin/Globulin Ratio 1.1 Lipase 28 Urine Color Urine Clarity Urine pH Ur Specific [place] Urine Protein Urine Glucose (UA) Urine Ketones Urine Occult Blood Urine Nitrite Urine Bilirubin Urine Urobilinogen Ur Leukocyte Esterase Urine RBC Urine WBC Ur Squamous Epith Cells Urine Bacteria Urine Culture Comments Urine HCG, Qual PD Medical Decision Making - ED course Complexity details: reviewed results, re-evaluated patient ED course: Pt with R flank pain, appears worse with certain movements. Abdominal exam is benign. Not . VSS and CBC, Abdominal panel without significant findings. UA is contaminated but no UTI symptoms. CT is negative for stone or other acute process. Pt feeling better here and counseled on continued supportive care. Advised on return precautions. Departure - Departure Disposition: 01 Home, Self Care Clinical Impression: Right flank pain Condition: Stable Instructions: ED Flank Pain Uncertain Cause Prescriptions: Lidocaine Patch 5% [Lidoderm Patch] 1 patch TOP DAILY PRN #10 patch PRN Reason: pain Ondansetron Odt [Zofran] 4 mg TL Q6H PRN #10 tablet PRN Reason: Nausea / Vomiting Comments: Your CT scan shows a small stone in the right kidney but I do not believe that this is the cause of your current symptoms. Your pain could be related to muscle strain as it does appear to worsen with certain movements. I have sent a prescription for nausea medications to [facility] in [place] as well as lidocaine patches. Please continue with these medications as needed as well as avoiding any movements that could strain at this area such as heavy lifting. If you have any new or worsening symptoms please consider return to the ER. Discharge Date/Time: 06/05/22 10:17
[2022-06-05 09:32] LABS: HCG UR QUAL NEGATIVE
[2022-06-05] MEDS: SODIUM CHLORIDE 0.9% 1,000 ML IV STA (09:38)
[2022-06-05] MEDS: ONDANSETRON 4 MG/2 ML VIAL IVP STA (09:38)
[2022-06-05 09:39] VITALS: BP 137/97
[2022-06-05] MEDS: HYDROmorphone 1 MG/ML CARPUJECT IVP STA (09:39)
--- NOTE | 2022-06-05 09:50 | CT Report ---
PROCEDURE: ABDOMEN/PELVIS WO INDICATIONS: R flank pain; history of stones TECHNIQUE: Noncontrast 5 mm thick sections acquired from the diaphragms to the symphysis. 5 mm coronal and sagi ttal reformats were then performed. For radiation dose reduction, the following was used: automated exposure control, adjustment of mA and/or kV according to patient size. COMPARISON: CT abdomen and pelvis with, 09/04/2021. FINDINGS: Image quality: Excellent. ABDOMEN: Lung bases: Lung bases are clear. Heart size is normal. Small hiatal hernia. Solid organs: Liver is normal in size. Mild hepatic steatosis. Spleen is normal in size. Gallbladde r is normal Pancreas is normal in contours. No adrenal nodules. Kidneys are normal in size. There is a 2 mm stone in the inferior pole of the right kidney. No right ureteral stones. No hydronephrosis or hydroureter. There is a prominent renal cortical scar in the mi d left kidney. A small cyst is seen in the left kidney. Peritoneum and bowel: Unenhanced bowel loops demonstrate normal wall thickness and caliber. Normal a ppendix. No free fluid or air. Nodes and vessels: No retroperitoneal or mesenteric adenopathy by size criteria. Aorta and inferior vena cava are normal in caliber. Miscellaneous: No ventral hernias. PELVIS: Genitourinary: Bladder is not fully distended. Bladder wall thickness is suboptimally visualized. There is a 2 mm cyst in the right ovary, likely a dominant ovarian follicle. Uterus is unremarkable. Left ovary is not well seen. No free fluid in pelvis. Miscellaneous: No inguinal hernias or adenopathy. Bones: No suspicious bony lesions. No vertebral body compression fractures. IMPRESSION: 1. Nephrolithiasis with a 2 mm nonobstructive stone in the inferior pole of the right kidney. No hydr onephrosis. 2. Left renal cortical scar and a small renal cyst. 3. Mild hepatic steatosis. Reviewed by: Lyly Garza MD on 06/05/2022 8:48 AM [place] Approved by: Lyly Garza MD on 06/05/2022 8:48 AM AKST Station ID: [id number]
== END 2022-06-05 10:17 | disposition home or self-care (01) ==
LOC: ED 06:30
DX: R10.11 Right upper quadrant pain (principal); E11.9 Type 2 diabetes mellitus without complications; Z79.85 Long-term (current) use of injectable non-insulin antidiabetic drugs; Z79.84 Long term (current) use of oral hypoglycemic drugs
CPT/HCPCS: 36415; 74176; 80053; 81001; 81025; 83690; 85025; 96374; 96375; 99283; 99284; J1170; 87086

== ENCOUNTER 2022-09-01 10:22 | Emergency (ER) | payer OTHER ==
[2022-09-01 11:18] VITALS: BP 132/65
[2022-09-01] MEDS ORDERED: FLUCONAZOLE 100 MG TABLET PO STA (13:51)
--- NOTE | 2022-09-01 13:54 | ED Physician Documentation ---
History of Present Illness - Stated complaint Stated Complaint: FEMALE - Chief complaint Chief Complaint: General - History obtained from History obtained from: Patient - Additonal information Additional information: The patient comes to the emergency department chief complaint of vaginal itching and discharge for about the last month. She states she has had recurrent yeast infections ever since starting Jardiance sometime ago. The patient has tried multiple topical vaginal preparations since onset of symptoms a month ago and states nothing seems to be working. She denies any fevers or chills, pelvic pain, abdominal pain, or vomiting. She does not feel that this is anything different than her usual yeast infections. No other complaints at this time. 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 HEENT: Chronic sinusitis Psych: None Musculoskeletal: None Derm: None - Past Surgical History Past Surgical History: Yes Ortho: ACL reconstruction, Shoulder arthroplasty HEENT: Tonsil/Adenoidectomy - Present Medications Home Medications: Ambulatory Orders Medication Instructions Recorded Confirmed Liraglutide [Victoza 2-Petar] 1.6 mg SUBQ QPM 01/16/18 06/05/22 metFORMIN [Glucophage] 500 mg PO BID 08/20/20 06/05/22 Empagliflozin [Jardiance] 10 mg PO BID 06/05/22 06/05/22 Lidocaine Patch 5% [Lidoderm Patch] 1 patch TOP DAILY PRN #10 patch 06/05/22 Ondansetron Odt [Zofran] 4 mg TL Q6H PRN #10 tablet 06/05/22 Fluconazole [Diflucan] 1 tablet PO ONCE #5 tablet 09/01/22 - Allergies Allergies/Adverse Reactions: Allergies Allergy/AdvReac Type Severity Reaction Status Date / Time doxycycline Allergy Severe edema, rash Verified 09/01/22 11:17 eletriptan AdvReac Anxiety Verified 09/01/22 11:17 hydrocodone [From Vicodin] AdvReac Dizziness Verified 09/01/22 11:17 morphine AdvReac Hallucinati Verified 09/01/22 11:17 ons - Social History Does the pt smoke?: No Smoking Status: Never smoker Does the pt drink ETOH?: No Does the pt have substance abuse?: No - Immunizations Immunizations are current?: Yes Immunizations: TDAP >10years/unknown - POLST Patient has POLST: No POLST Status: Full Code PD ED PE NORMAL - Vitals Vital signs reviewed: Yes - General General: Alert and oriented X 3, No acute distress, Well developed/nourished - HEENT HEENT: Atraumatic, PERRL - Respiratory Respiratory: No respiratory distress - Derm Derm: Normal color - Extremities Extremities: No deformity - Neuro Neuro: Alert and oriented X 3 - Psych Psych: Normal mood, Normal affect Results - Vitals Vitals: Vital Signs - 24 hr 09/01/22 11:14 Temperature 36.7 C Heart Rate 81 Respiratory 16 Rate Blood Pressure 132/65 H O2 Saturation 98 Oxygen O2 Source Room air PD Medical Decision Making - ED course Complexity details: considered differential, d/w patient ED course: The patient was given a dose of Diflucan here in the emergency department and a prescription was sent for the same to the pharmacy of the patient's choice. We have discussed the usual indications for follow-up and return. Departure - Departure Disposition: 01 Home, Self Care Clinical Impression: Vaginal candidiasis Condition: Stable Instructions: ED Vaginal Infec Fungal Annie Prescriptions: Fluconazole [Diflucan] 1 tablet PO ONCE #5 tablet Comments: Your prescription for the Diflucan has been electronically transmitted to the [facility] pharmacy in [place]. You have been given your first dose here and may repeat the dose in anywhere from a few days to a week.
== END 2022-09-01 13:57 | disposition home or self-care (01) ==
LOC: ED 10:22
DX: B37.31 Acute candidiasis of vulva and vagina (principal)
CPT/HCPCS: 99282; 99283; A9270

== ENCOUNTER 2022-09-04 08:00 | Outpatient (CLI) | payer OTHER ==
[2022-09-04 22:43] LABS: BACTERIAL VAGINOSIS DNA NEGATIVE (NEGATIVE); CANDIDA GROUP DNA NEGATIVE (NEGATIVE); CANDIDA KRUSEI DNA NEGATIVE (NEGATIVE); TRICHOMONAS VAGINALIS DNA NEGATIVE (NEGATIVE)
[2022-09-04 22:44] LABS: CANDIDA GLABRATA DNA POSITIVE (NEGATIVE)
== END 2022-09-04 23:59 | disposition home or self-care (01) ==
LOC: LAB.N 08:00
PROVIDERS: ATTEND Registered Nurse
DX: B37.31 Acute candidiasis of vulva and vagina (principal)
CPT/HCPCS: 81514

== ENCOUNTER 2022-10-30 17:17 | Emergency (ER) | payer OTHER ==
[2022-10-30 17:26] VITALS: BP 146/83
[2022-10-30] MEDS ORDERED: predniSONE 20 MG TABLET PO STA (17:51)
[2022-10-30] MEDS ORDERED: oxyCODONE 5 MG TABLET PO STA (17:51)
--- NOTE | 2022-10-30 17:53 | ED Physician Documentation ---
History of Present Illness - Stated complaint Stated Complaint: NECK PAIN - Chief complaint Chief Complaint: Back Pain - Additonal information Additional information: 41-year-old female who has a past medical history Mo significant for diabetes presents the emergency department for evaluation of acute on chronic neck pain. She underwent cervical spinal fusion C4-C6 in July 2021 since then she has had some chronic neck pain that is resulted in baseline right arm weakness. She typically tries gabapentin or tramadol without relief of pain. She has had steroid injections postoperatively which did not help much. She is followed by [facility] spine surgery. She is currently getting things in place to move to [place] where her is being transferred. Patient denies any fevers, no falls or trauma. 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 HEENT: Chronic sinusitis Psych: None Musculoskeletal: None Derm: None - Past Surgical History Past Surgical History: Yes Ortho: ACL reconstruction, Shoulder arthroplasty HEENT: Tonsil/Adenoidectomy - Present Medications Home Medications: Ambulatory Orders Medication Instructions Recorded Confirmed Liraglutide [Victoza 2-Petar] 1.6 mg SUBQ QPM 01/16/18 06/05/22 metFORMIN [Glucophage] 500 mg PO BID 08/20/20 06/05/22 Empagliflozin [Jardiance] 10 mg PO BID 06/05/22 06/05/22 Lidocaine Patch 5% [Lidoderm Patch] 1 patch TOP DAILY PRN #10 patch 06/05/22 Ondansetron Odt [Zofran] 4 mg TL Q6H PRN #10 tablet 06/05/22 Fluconazole [Diflucan] 1 tablet PO ONCE #5 tablet 09/01/22 oxyCODONE [Roxicodone] 10 mg PO Q6H PRN #12 tablet 10/30/22 predniSONE [Deltasone] 40 mg PO DAILY 4 Days #8 tablet 10/30/22 - Allergies Allergies/Adverse Reactions: Allergies Allergy/AdvReac Type Severity Reaction Status Date / Time doxycycline Allergy Severe edema, rash Verified 09/01/22 11:17 eletriptan AdvReac Anxiety Verified 09/01/22 11:17 hydrocodone [From Vicodin] AdvReac Dizziness Verified 09/01/22 11:17 morphine AdvReac Hallucinati Verified 09/01/22 11:17 ons - Social History Does the pt smoke?: No Smoking Status: Never smoker Does the pt drink ETOH?: No Does the pt have substance abuse?: No - Immunizations Immunizations are current?: Yes Immunizations: TDAP >10years/unknown - POLST Patient has POLST: No POLST Status: Full Code PD ED PE NORMAL - General General: Alert and oriented X 3, No acute distress - HEENT HEENT: PERRL - Neck Neck: Supple, no meningeal sign, Other (Anterior neck scar well-healed. Reduced range of motion with lateral rotation most reduced on the left side. Normal flexion and extension of the neck. Mild right arm weakness in comparison to the left. No drift.) - Cardiac Cardiac: RRR, No murmur - Respiratory Respiratory: No respiratory distress, Clear bilaterally - Abdomen Abdomen: Normal bowel sounds, Soft Results - Vitals Vitals: Vital Signs - 24 hr 10/30/22 17:22 Temperature 36.4 C L Heart Rate 91 Respiratory 16 Rate Blood Pressure 146/83 H O2 Saturation 98 Oxygen O2 Source Room air PD Medical Decision Making - ED course Complexity details: reviewed results, d/w patient ED course: 41-year-old female presents emergency department for evaluation of acute on ch ronic neck pain. She had a history of spinal fusion C4-6 in July 2021. Since then she has had acute on chronic pain with flares that are typically managed with extra doses of gabapentin and tramadol. At baseline she has known weakness in the right arm. This is unchanged today. However her typical medications of tramadol and gabapentin did not improve the symptoms. There have been no falls or trauma. No fevers. At the this hour of the day MRI is no longer available though clinically her symptoms do not appear new. I discussed with patient routine conservative management and in the past she has had some relief using a short course of steroids therefore I will start her on some prednisone. She is aware that she will have to monitor her sugars more closely given that she is a diabetic. A limited prescription of oxycodone is also being sent to the pharmacy for worsening symptoms. The usual emergent return precautions for worsening symptoms was discussed Departure - Departure Disposition: 01 Home, Self Care Clinical Impression: Chronic neck pain Condition: Stable Record reviewed to determine appropriate education?: Yes Prescriptions: predniSONE [Deltasone] 40 mg PO DAILY 4 Days #8 tablet oxyCODONE [Roxicodone] 10 mg PO Q6H PRN #12 tablet PRN Reason: Pain >8 Comments: Nguyen it appears you are having a flare of your chronic neck pain. In order to help manage the flare I would like to start you on some prednisone. Your first dose was given today in the ER. Please fill the prescription at [facility] and take every day for the next 4 days. This should start tomorrow. In addition to your usual pain medications you can try some additional doses of oxycodone. It is important that you continue to follow with your spine surgeon. If you find that you are having worsening symptoms despite this treatment then please return to the ER.
== END 2022-10-30 18:16 | disposition home or self-care (01) ==
LOC: ED 17:17
DX: M54.9 Dorsalgia, unspecified (principal); G89.29 Other chronic pain; E11.9 Type 2 diabetes mellitus without complications; Z79.84 Long term (current) use of oral hypoglycemic drugs
CPT/HCPCS: 99282; 99283; A9270; J7512

== ENCOUNTER 2023-01-07 01:11 | Emergency (ER) | payer OTHER ==
--- NOTE | 2023-01-07 03:52 | ED Physician Documentation ---
PD HPI NECK PAIN - Stated complaint Stated Complaint: HEAD/NECK PX - Chief complaint Chief Complaint: Heent - History obtained from History obtained from: Patient - Additional information Additional information: HPI from patient. Patient was evaluated in urgent care yesterday for same. Patient c/o generalized UMANZOR, n/v x 2 weeks. She also has intermittent posterior neck pain, and her headache , at times, feels as though it is radiating from the neck. Patient had neck surgery 07/2021 (MRI c-spine 05/29/20 showed premature cervical spine degenerative changes , worse C5-C6, C6-C7 (per radiology read). Patient was given / prescribed zofran, 5-day course of prednisone (60mg QD) and robaxin PRN. She says she was given toradol IM , as well. She takes maxalt for migraine headaches, but the maxalt did not adequately relieve her headache/neck pain, nor did the other medications prescribed from urgent care. She has had worse headaches; some elements of the headache are similar to previous migraine headaches she has had. She says her FSBS was in the 500s this evening and is concerned that the steroids are causing this elevated blood sugar. She is non- insulin dependent DM 2. She has been checking her blood sugars a few times per day recently due to recent change in medication (recently started Trulicity after stopping a different DM medication). She says her blood sugars had been running within expected range until tonight. Review of Systems Constitutional: reports: Reviewed and negative Eyes: reports: Reviewed and negative GI: reports: Nausea, Vomiting. denies: Abdominal Pain Neurologic: reports: Headache. 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 HEENT: Chronic sinusitis Psych: None Musculoskeletal: None Derm: None - Past Surgical History Past Surgical History: Yes Ortho: ACL reconstruction, Shoulder arthroplasty HEENT: Tonsil/Adenoidectomy - Present Medications Home Medications: Ambulatory Orders Medication Instructions Recorded Confirmed Liraglutide [Victoza 2-Petar] 1.6 mg SUBQ QPM 01/16/18 06/05/22 metFORMIN [Glucophage] 500 mg PO BID 08/20/20 06/05/22 Empagliflozin [Jardiance] 10 mg PO BID 06/05/22 06/05/22 Lidocaine Patch 5% [Lidoderm Patch] 1 patch TOP DAILY PRN #10 patch 06/05/22 Ondansetron Odt [Zofran] 4 mg TL Q6H PRN #10 tablet 06/05/22 Fluconazole [Diflucan] 1 tablet PO ONCE #5 tablet 09/01/22 oxyCODONE [Roxicodone] 10 mg PO Q6H PRN #12 tablet 10/30/22 predniSONE [Deltasone] 40 mg PO DAILY 4 Days #8 tablet 10/30/22 Oxycodone HCl/Acetaminophen 1 - 2 each PO Q6HR PRN #14 tablet 01/07/23 [Percocet 5-325 mg Tablet] Promethazine [Phenergan] 25 mg PO Q6H PRN #10 tab 01/07/23 - Allergies Allergies/Adverse Reactions: Allergies Allergy/AdvReac Type Severity Reaction Status Date / Time doxycycline Allergy Severe edema, rash Verified 09/01/22 11:17 eletriptan AdvReac Anxiety Verified 09/01/22 11:17 hydrocodone [From Vicodin] AdvReac Dizziness Verified 09/01/22 11:17 morphine AdvReac Hallucinati Verified 09/01/22 11:17 ons - Social History Does the pt smoke?: No Smoking Status: Never smoker Does the pt drink ETOH?: No Does the pt have substance abuse?: No - Immunizations Immunizations are current?: Yes Immunizations: TDAP >10years/unknown - POLST Patient has POLST: No POLST Status: Full Code PD ED PE NORMAL - Vitals Vital signs reviewed: Yes - General General: Alert and oriented X 3, No acute distress, Well developed/nourished - HEENT HEENT: Atraumatic, PERRL, EOMI - Neck Neck: Supple, no meningeal sign - Cardiac Cardiac: RRR, No murmur - Abdomen Abdomen: Soft, Non tender - Neuro Neuro: Alert and oriented X 3, electronics manufacturer 2-12 intact, No motor deficit, No sensory deficit, Normal speech Eye Opening: Spontaneous Motor: Obeys Commands Verbal: Oriented GCS Score: 15 Results - Vitals Vitals: Oxygen O2 Source Room air - Labs Labs: Laboratory Tests 01/07/23 01/07/23 04:30 04:30 WBC 10.8 RBC 4.50 Hgb 13.5 Hct 40.6 MCV 90.2 MCH 30.0 MCHC 33.3 RDW 12.8 Plt Count 371 MPV 10.1 Neut # (Auto) 9.3 H Lymph # (Auto) 1.2 L [place] # (Auto) 0.2 Eos # (Auto) 0.0 Baso # (Auto) 0.0 Absolute Nucleated RBC 0.00 Nucleated RBC % 0.0 Platelet Estimate NORMAL (130-450,000) Platelet Morphology 1+ LARGE PLATELETS Sodium 136 Potassium 4.0 Chloride 105 Carbon Dioxide 21 Anion Gap 10.0 BUN 12 Creatinine 0.5 L Estimated GFR (MDRD) 135 Glucose 264 H Calcium 9.8 Total Bilirubin 0.4 AST 13 ALT 14 Alkaline Phosphatase 80 Total Protein 7.2 Albumin 4.2 Globulin 3.0 Albumin/Globulin Ratio 1.4 Lipase 17 Serum Ketones NEGATIVE PD Medical Decision Making - ED course Complexity details: considered differential, d/w patient ED course: Given 1 liter NS IV, 50 micrograms IV fentanyl , 25mg IV phenergan. She reports significant improvement in symptoms but requests another dose of medication for pain and thus given 75mg IV fentanyl (we had discussed dilaudid, but she seems to recall having unpleasant side effects, and she is certain she had hallucinations with morphine). No concerning findings on CBC, ER abdominal panel (normal CBC, blood glucose 264 on panel but negative serum ketones). Results reviewed with patient. After the second dose of fentanyl, she is feeling well and comfortable with d/c home. Neurological exam remains unremarkable. No indication for emergent imaging at this time. Return precautions are discussed. Oxycodone and phenergan prescriptions provided I am prescribing a short course of short-acting opioid pain medication for this patient. I have reviewed the patients DIRECTOR OF STRATEGIC ALLIANCES and no concerning findings were noted. I have discussed that the opioids are for short term therapy only, and will not be refilled from the ED. Departure - Departure Disposition: 01 Home, Self Care Clinical Impression: Headache Qualifiers: Headache type: unspecified Headache chronicity pattern: acute headache Intractability: not intractable Qualified Code(s): R51.9 - Headache, unspecified Condition: Good Instructions: ED Cephalgia Unspecified Follow-Up: TREVOR ALLISON MD [Physician No Access] - Prescriptions: Oxycodone HCl/Acetaminophen [Percocet 5-325 mg Tablet] 1 - 2 each PO Q6HR PRN #14 tablet PRN Reason: Pain >8 Promethazine [Phenergan] 25 mg PO Q6H PRN #10 tab PRN Reason: Nausea / Vomiting Comments: Your blood tests were normal with the exception of a high blood sugar (264). I have electronically submitted prescriptions for Percocet (opiate/narcotic pain medication) and promethazine (antinausea medication) to the [facility] pharmacy in [place]. I am prescribing a short course of narcotic pain medication for you. These are potentially dangerous and addictive medications that should be used carefully. These medications may constipate you. Take an xifk-pim-hkwwefk stool softener (docusate) twice daily with plenty of water while taking these medications. If you go 24 hours without a bowel movement, take koej-caz-ncoaoey miralax, per package instructions. Do not drink or drive while taking these medications. If you received narcotic or sedating medications while in the emergency department, do not drive for 24 hours. Store this medication in a safe, secure place and out of reach of children. It is a violation of federal law to give or sell this medication to another person or to use in a manner other than prescribed. The ED will not refill narcotic prescriptions, including prescriptions lost or stolen. To dispose of unwanted medications: 1. [facility] at [address] [facility] in [place] has a medication drop box. They accept prescription medications (in pill form) Friday through Friday 9:00 a.m. to 5:00 p.m. 2. [facility] accepts prescription medications (in pill form only) for disposal year round. Call for more information. 3. Contact the [facility] for the next [facility] sponsored prescription drug collection event. , [phone], or [phone]; Forms: PCP List Discharge Date/Time: 01/07/23 06:43
[2023-01-07] MEDS ORDERED: fentaNYL 100 MCG/2 ML VIAL IVP STA ×2 (04:13→06:05)
[2023-01-07] MEDS ORDERED: PROMETHAZINE INJ 25 MG in SODIUM CHLORIDE 0.9% 50 ML IV STA (04:13)
[2023-01-07] MEDS ORDERED: SODIUM CHLORIDE 0.9% 1,000 ML IV STA (04:13)
[2023-01-07 04:48] LABS: BASOPHILS % (AUTO) 0.4 %; EOSINOPHILS % (AUTO) 0.1 %; HCT - HEMATOCRIT 40.6 % (37.0-47.0); HGB - HEMOGLOBIN 13.5 g/dL (12.0-16.0); LYMPHOCYTES # (AUTO) 1.2 10^3/uL (1.5-3.5); LYMPHOCYTES % (AUTO) 11.2 %; MEAN CORPUSCULAR HGB CONC 33.3 g/dL (32.0-36.0); MEAN CORPUSCULAR VOLUME 90.2 fL (81.0-99.0); MEAN PLATELET VOLUME 10.1 fL (7.9-10.8); MONOCYTES # (AUTO) 0.2 10^3/uL (0.0-1.0); MONOCYTES % (AUTO) 1.9 %; NEUTROPHILS # (AUTO) 9.3 10^3/uL (1.5-6.6); NEUTROPHILS % (AUTO) 85.6 %; PLT - PLATELET COUNT 371 10^3/uL (130-450); RED CELL DISTRIBUTION WIDTH 12.8 % (12.0-15.0); WHITE BLOOD COUNT 10.8 x10^3/uL (4.8-10.8)
[2023-01-07 04:56] LABS: ALBUMIN 4.2 g/dL (3.2-5.5); ALBUMIN/GLOBULIN RATIO 1.4 (1.0-2.2); ALKALINE PHOSPHATASE 80 IU/L (42-121); ALT ALANINE AMINOTRANSFERASE 14 IU/L (10-60); AST ASPARTATE AMINOTRANSFERASE 13 IU/L (10-42); BILIRUBIN,TOTAL 0.4 mg/dL (0.2-1.0); BUN - BLOOD UREA NITROGEN 12 mg/dL (6-20); CALCIUM 9.8 mg/dL (8.5-10.3); CARBON DIOXIDE - CO2 21 mmol/L (21-32); CHLORIDE 105 mmol/L (101-111); CREATININE 0.5 mg/dL (0.6-1.3); GFR - MDRD 135 (>89); GLUCOSE 264 mg/dL (74-104); LIPASE 17 U/L (11-82); SODIUM 136 mmol/L (135-145); TOTAL PROTEIN 7.2 g/dL (6.4-8.9)
[2023-01-07 05:00] LABS: PLATELET ESTIMATE, MANUAL NORMAL (130-450,000) (NORMAL); PLATELET MORPHOLOGY 1+ LARGE PLATELETS (NORMAL)
[2023-01-07] MEDS ORDERED: PROMETHAZINE 25 MG/1 ML VIAL ONE (05:00)
[2023-01-07 05:01] LABS: KETONES, SERUM (ACETEST) NEGATIVE (NEGATIVE)
[2023-01-07 06:42] VITALS: BP 137/79; O2SAT 95
== END 2023-01-07 06:43 | disposition home or self-care (01) ==
LOC: ED 01:11
DX: R51.9 Headache, unspecified (principal); E78.00 Pure hypercholesterolemia, unspecified; E11.9 Type 2 diabetes mellitus without complications; Z79.899 Other long term (current) drug therapy; Z79.84 Long term (current) use of oral hypoglycemic drugs
CPT/HCPCS: 36415; 80053; 82009; 83690; 85025; 96365; 96375; 96376; 99284; J7040

== ENCOUNTER 2023-02-27 16:53 | Emergency (ER) | payer OTHER ==
[2023-02-27] MEDS ORDERED: fentaNYL 100 MCG/2 ML VIAL IM STA (17:30)
[2023-02-27] MEDS ORDERED: oxyCODONE 5 MG TABLET PO STA (17:31)
--- NOTE | 2023-02-27 17:33 | ED Physician Documentation ---
PD HPI BACK PAIN - Stated complaint Stated Complaint: NECK/SHOULDER PX - Chief complaint Chief Complaint: Back Pain - History obtained from History obtained from: Patient - Additional information Additional information: 42-year-old woman with chronic neck pain and cervical radiculopathy. She is in the process of moving, her has already PCS to [place] and she plans on leaving at the end of this month. She has been told that she needs a repeat surgery on her neck to remove a rib to improve her chronic radiculopathy. 2 nights ago she fell. She did not injure her neck per se but it made her chronic pain worse. She has tried Flexeril and Tylenol with codeine without relief. She has no saddle anesthesia or incontinence. No fevers. 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 HEENT: Chronic sinusitis Psych: None Musculoskeletal: None Derm: None - Past Surgical History Past Surgical History: Yes Ortho: ACL reconstruction, Shoulder arthroplasty HEENT: Tonsil/Adenoidectomy - Present Medications Home Medications: Ambulatory Orders Medication Instructions Recorded Confirmed Liraglutide [Victoza 2-Petar] 1.6 mg SUBQ QPM 01/16/18 06/05/22 metFORMIN [Glucophage] 500 mg PO BID 08/20/20 06/05/22 Empagliflozin [Jardiance] 10 mg PO BID 06/05/22 06/05/22 Lidocaine Patch 5% [Lidoderm Patch] 1 patch TOP DAILY PRN #10 patch 06/05/22 Ondansetron Odt [Zofran] 4 mg TL Q6H PRN #10 tablet 06/05/22 Fluconazole [Diflucan] 1 tablet PO ONCE #5 tablet 09/01/22 oxyCODONE [Roxicodone] 10 mg PO Q6H PRN #12 tablet 10/30/22 predniSONE [Deltasone] 40 mg PO DAILY 4 Days #8 tablet 10/30/22 Oxycodone HCl/Acetaminophen 1 - 2 each PO Q6HR PRN #14 tablet 01/07/23 [Percocet 5-325 mg Tablet] Promethazine [Phenergan] 25 mg PO Q6H PRN #10 tab 01/07/23 Cyclobenzaprine [Flexeril] 10 mg PO TID PRN #20 tablet 02/05/23 predniSONE [Deltasone] 20 mg PO [id number] #21 tab 02/05/23 Oxycodone HCl 10 mg PO Q6H PRN #12 tablet 02/27/23 - Allergies Allergies/Adverse Reactions: Allergies Allergy/AdvReac Type Severity Reaction Status Date / Time doxycycline Allergy Severe edema, rash Verified 02/27/23 17:18 eletriptan AdvReac Anxiety Verified 02/27/23 17:18 hydrocodone [From Vicodin] AdvReac Dizziness Verified 02/27/23 17:18 morphine AdvReac Hallucinati Verified 02/27/23 17:18 ons - Social History Does the pt smoke?: No Smoking Status: Never smoker Does the pt drink ETOH?: No Does the pt have substance abuse?: No - Immunizations Immunizations are current?: Yes Immunizations: TDAP >10years/unknown - POLST Patient has POLST: No POLST Status: Full Code PD ED PE NORMAL - Vitals Vital signs reviewed: Yes - General General: Alert and oriented X 3, No acute distress - Neck Neck: Other (Diffuse cervical spine tenderness without limited range of motion) - Extremities Extremities: Other (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 Diffusely but partially numb throughout the hand sparing the upper arm on the right.) - Neuro Neuro: Alert and oriented X 3, Normal speech Eye Opening: Spontaneous Motor: Obeys Commands Verbal: Oriented GCS Score: 15 Results - Vitals Vitals: Vital Signs - 24 hr 02/27/23 17:15 Temperature 36.6 C Heart Rate 115 H Respiratory 14 Rate Blood Pressure 138/84 H O2 Saturation 97 Oxygen O2 Source Room air PD Medical Decision Making - ED course ED course: 42-year-old woman with an exacerbation of a chronic radiculopathy in the cervical spine. CT imaging was offered but declined, she does not feel like her neck is injured per se, just worse than usual. We discussed options for pain management and she has had the most relief with fentanyl in the past noting that she has an allergy to morphine and Dilaudid does not work. She was administered 100 mcg of fentanyl IM to bridge her to oral medication relief with oxycodone. Departure - Departure Disposition: 01 Home, Self Care Clinical Impression: Cervical radiculopathy Condition: Good Record reviewed to determine appropriate education?: Yes Instructions: ED Cervical Radiculopathy Prescriptions: Oxycodone HCl 10 mg PO Q6H PRN #12 tablet PRN Reason: pain Comments: I sent your prescription electronically to the [facility] in [place]. Please try to establish primary care as soon as you get to [place] to obtain new referrals for specialty care. Return for new or worsening symptoms. I am prescribing a short course of narcotic pain medication for you. These are potentially dangerous and addictive medications that should be used carefully. These medications may constipate you. Take an ceyp-cpq-yrcsfue stool softener (docusate) twice daily with plenty of water while taking these medications. If you go 24 hours without a bowel movement, take ewkt-gxp-yhiwyjh miralax, per package instructions. Do not drink or drive while taking these medications. If you received narcotic or sedating medications while in the emergency department, do not drive for 24 hours. Store this medication in a safe, secure place and out of reach of children. It is a violation of federal law to give or sell this medication to another person or to use in a manner other than prescribed. The ED will not refill narcotic prescriptions, including prescriptions lost or stolen. To dispose of unwanted medications: 1. [facility]'s Office provides a drop box for medication in pill form only (no liquids) 8:00 am to 4:30 p.m. Friday-Friday in the lobby of the [facility], [address] [place] [address]. Empty pills into ziplock bag before disposal. Call [phone] for information. 2.[employer] is a free service available to all [facility] residents. Go to [email or web address] Note that many narcotic pain relievers also contain Tylenol/acetaminophen. Please ensure that your total dose of acetaminophen from all sources does not exceed 3 g (3000 mg) per day.
[2023-02-27 18:01] VITALS: BP 116/71; O2SAT 98
== END 2023-02-27 18:00 | disposition home or self-care (01) ==
LOC: ED 16:53
DX: M54.12 Radiculopathy, cervical region (principal); G89.29 Other chronic pain
CPT/HCPCS: 96372; 99283; 99284; A9270